=== PATIENT | male | born 1990 | race Caucasian/White ===

== ENCOUNTER 2021-08-15 21:20 | Emergency (ER) | payer MEDICAID ==
[~2021-08-15] VITALS: Ht 182.9 cm; Wt 90.9 kg
[2021-08-15] MEDS ORDERED: naloxone 2mg/2ml inj IV ONE (21:30)
[2021-08-15] MEDS ORDERED: normal saline 1000ML IV soln IVB ONE ×2 (21:35→23:40)
[2021-08-15 21:48] LABS: CLARITY,URINE CLEAR (Clear); GLUCOSE, URINE NEGATIVE (Neg); KETONES,URINE NEGATIVE (Neg); LEUKOCYTE ESTERASE ,URINE SMALL (Neg); NITRITES, URINE NEGATIVE (Neg); OCCULT BLOOD,URINE TRACE-INTACT (Neg); PH,URINE 5.5 (4.8-8.0); PROTEIN,URINE TRACE mg/dl (Neg); UROBILINOGEN,URINE 0.2 E.U/dL (0.2-1.0)
[2021-08-15 21:49] LABS: BASOPHILS % (AUTO) 0.3 % (0-1); EOSINOPHILS # (AUTO) 0.3 X10'3 (0-0.9); EOSINOPHILS % (AUTO) 2.2 % (0-6); HEMATOCRIT 46.1 % (42.0-52.0); HEMOGLOBIN 15.4 g/dl (14.0-17.9); MEAN CORPUSCULAR HEMOGLOBIN 31.8 PG (27.0-31.0); MEAN CORPUSCULAR HGB CONC 33.3 g/dL (33.0-36.5); MEAN CORPUSCULAR VOLUME 95.4 FL (78-98); MEAN PLATELET VOLUME 8.1 FL (7.4-10.4); MONOCYTES # (AUTO) 1.3 X10'3 (0-0.9); MONOCYTES % (AUTO) 10.7 % (2-12); NEUTROPHILS # (AUTO) 5.5 X10'3 (1.8-7.7); NEUTROPHILS % (AUTO) 45.8 % (42-75); PLATELET COUNT 256 X10'3 (140-440); RED BLOOD COUNT 4.83 X10'6 (4.70-6.10); RED CELL DISTRIBUTION WIDTH 13.8 % (11.5-14.5); WHITE BLOOD COUNT 12.1 X10'3 (4.5-11.0)
[2021-08-15] MEDS ORDERED: naloxone 0.4 mg/ml inj IV ONE (21:50)
[2021-08-15 21:53] LABS: COLOR,URINE STRAW (Yellow); UA COLLECTION TYPE FOLEY CATH
[2021-08-15 21:58] LABS: BACTERIA,URINE FEW /HPF (Neg); MUCUS STRANDS NONE SEEN /LPF (Neg); RBC,URINE 0-2 /HPF (0-2); SQUAMOUS EPITHELIAL CELL,UR NONE SEEN /LPF (FEW); URINE AMPHETAMINE SCREEN NEGATIVE (Neg); URINE BARBITUATE SCREEN NEGATIVE (Neg); URINE BENZODIAZEPINES SCREEN NEGATIVE (Neg); URINE CANNABINOID SCREEN NEGATIVE (Neg); URINE COCAINE SCREEN NEGATIVE (Neg); URINE METHADONE SCREEN NEGATIVE (Neg); URINE OPIATE SCREEN NEGATIVE (Neg); URINE PHENCYCLIDINE SCREEN NEGATIVE (Neg)
[2021-08-15 21:59] LABS: ALANINE AMINOTRANSFERASE 76 U/L (12-78); ALBUMIN 3.8 G/DL (3.4-5.0); ALBUMIN/GLOBULIN RATIO 1.5 (1.1-1.5); ALKALINE PHOSPHATASE 45 IU/L (46-116); ANION GAP 18 (8-16); ASPARTATE AMINO TRANSFERASE 29 U/L (10-37); BILIRUBIN,TOTAL 0.1 MG/DL (0.1-1.0); BLOOD UREA NITROGEN 9 MG/DL (7-18); BUN/CREATININE RATIO 12.3 (5.4-32.0); CHLORIDE 109 MMOL/L (99-107); CREATININE 0.73 MG/DL (0.60-1.10); GLUCOSE 116 MG/DL (70-104); POTASSIUM 3.1 MMOL/L (3.5-5.1); SODIUM 148 MMOL/L (135-145); TOTAL CARBON DIOXIDE 20.7 MMOL/L (24-32); TOTAL PROTEIN 6.3 G/DL (6.4-8.2); eGFR > 90 ML/MIN
[2021-08-15 22:00] LABS: ETHANOL 0.401 GM/DL (0.0-0.010)
[2021-08-15] MEDS ORDERED: potassium Cl 20 mEq SR tablet PO ONE (22:05)
--- NOTE | 2021-08-15 22:17 | NUR ---
Per patient boyfriend, patient had one bottle of sake, six shots, and two mixed drinks.
[2021-08-15] MEDS ORDERED: potassium Cl 10 mEq/100mL bag IV ONE (23:40)
[2021-08-16 00:11] LABS: MAGNESIUM 2.1 MG/DL (1.5-2.4)
--- NOTE | 2021-08-16 03:21 | NUR ---
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 Phone number [phone].
[2021-08-16 04:12] VITALS: BP 92/45
--- NOTE | 2021-08-16 04:47 | NUR ---
Patient awake and coherent. 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
[2021-08-16] MEDS ORDERED: CEPH250T PO (05:39)
== END 2021-08-16 05:39 | disposition home or self-care (01) ==
LOC: ER 21:20
DX: N39.0 Urinary tract infection, site not specified (principal); R11.10 Vomiting, unspecified; F10.10 Alcohol abuse, uncomplicated; Y90.8 Blood alcohol level of 240 mg/100 ml or more; Z79.2 Long term (current) use of antibiotics
CPT/HCPCS: 36415; 70450; 71045; 80053; 80305; 80320; 81001; 82948; 83735; 85025; 87088; 93005; 96361; 96374; 96376; 99285; J2310; J3480; J7030

== ENCOUNTER 2022-01-22 10:08 | Inpatient (IN) | payer MEDICAID ==
[~2022-01-22] VITALS: Ht 170.2 cm; Wt 72.7 kg
[2022-01-22] MEDS ORDERED: methylPREDNISolone sod succ 125mg/2ml vial IV ONE (11:10)
[2022-01-22] MEDS ORDERED: ampicillin/sulbac 3gm/NS 100ml 100 ML IV ONE (11:25)
[2022-01-22] MEDS ORDERED: normal saline 1000ml 1,000 ML IV ONE (11:30)
[2022-01-22] MEDS ORDERED: clindamycin 600mg/D5W 50ml 50 ML IV ONE (11:45)
[2022-01-22 11:58] LABS: BASOPHILS % (AUTO) 0.4 % (0-1); EOSINOPHILS # (AUTO) 0.2 X10'3 (0-0.9); EOSINOPHILS % (AUTO) 2.3 % (0-6); HEMATOCRIT 42.5 % (42.0-52.0); HEMOGLOBIN 14.4 g/dl (14.0-17.9); LYMPHOCYTES # (AUTO) 1.5 X10'3 (1.1-4.8); LYMPHOCYTES % (AUTO) 17.6 % (21-51); MEAN CORPUSCULAR HEMOGLOBIN 30.4 PG (27.0-31.0); MEAN CORPUSCULAR HGB CONC 33.9 g/dL (33.0-36.5); MEAN CORPUSCULAR VOLUME 89.6 FL (78-98); MEAN PLATELET VOLUME 7.6 FL (7.4-10.4); MONOCYTES % (AUTO) 11.1 % (2-12); NEUTROPHILS % (AUTO) 68.6 % (42-75); PLATELET COUNT 434 X10'3 (140-440); RED BLOOD COUNT 4.74 X10'6 (4.70-6.10); RED CELL DISTRIBUTION WIDTH 12.5 % (11.5-14.5); WHITE BLOOD COUNT 8.8 X10'3 (4.5-11.0)
[2022-01-22 12:15] LABS: ALANINE AMINOTRANSFERASE 14 U/L (12-78); ALBUMIN 3.2 G/DL (3.4-5.0); ALBUMIN/GLOBULIN RATIO 0.8 (1.1-1.5); ALKALINE PHOSPHATASE 47 IU/L (46-116); ANION GAP 8 (8-16); ASPARTATE AMINO TRANSFERASE 15 U/L (10-37); BILIRUBIN,TOTAL 0.2 MG/DL (0.1-1.0); BLOOD UREA NITROGEN 6 MG/DL (7-18); CALCIUM 8.9 MG/DL (8.5-10.1); CHLORIDE 104 MMOL/L (99-107); CREATININE 0.67 MG/DL (0.60-1.10); GLUCOSE 98 MG/DL (70-104); MAGNESIUM 1.9 MG/DL (1.5-2.4); POTASSIUM 3.7 MMOL/L (3.5-5.1); SODIUM 142 MMOL/L (135-145); TOTAL CARBON DIOXIDE 29.8 MMOL/L (24-32); TOTAL PROTEIN 7.4 G/DL (6.4-8.2); eGFR > 90 ML/MIN
[2022-01-22] MEDS ORDERED: LIDOcaine 1% 30ml preserv. free vial SQ STA (13:19)
[2022-01-22] MEDS ORDERED: ampicillin/sulbac 3gm/NS 100ml 100 ML IV SCH (14:00)
[2022-01-22] MEDS ORDERED: piperacillin/tazo 3.375gm/50ml 50 ML IV ONE (14:35)
[2022-01-22] MEDS ORDERED: ketorolac trometh. 30mg/ml inj. IV ONE (14:40)
[2022-01-22] MEDS: normal saline 1000ml 1,000 ML IV SCH (18:14)
[2022-01-22] MEDS ORDERED: clindamycin 300mg/D5W 50mL 50 ML IV ONE (18:22)
[2022-01-22] MEDS ORDERED: clindamycin phosphate inj 300 MG in normal saline 50ml IV soln 48 ML IV ONE (18:30)
[2022-01-22] MEDS ORDERED: clindamycin phosphate inj 300 MG in normal saline 50ml IV soln 48 ML IV SCH (19:00)
[2022-01-22] MEDS ORDERED: clindamycin 600mg/D5W 50ml 50 ML IV SCH (20:00)
[2022-01-22] MEDS: piperacillin/tazo 3.375gm/50ml 50 ML IV SCH (20:59)
[2022-01-23] MEDS: normal saline 1000ml 1,000 ML IV SCH ×3 (04:49→19:30)
[2022-01-23] MEDS: piperacillin/tazo 3.375gm/50ml 50 ML IV SCH ×2 (04:50→12:24)
--- NOTE | 2022-01-23 06:25 | NUR ---
Patient observed sleeping with property assessment monitor in place, no signs of distress noted. Will continue to monitor.
[2022-01-23] MEDS ORDERED: potassium CL 20mEq in D5-1/2NS 1,000 ML IV SCH (08:20)
[2022-01-23] MEDS ORDERED: LIDOcaine 1% w/EPI 1:200,000 injection 10mL vial IJ STA (10:59)
--- NOTE | 2022-01-23 12:00 | NUR ---
Patient resting on stretcher, no signs of distress noted, will continue to monitor.
[2022-01-23] MEDS ORDERED: ketorolac trometh. 30mg/ml inj. IV ONE (15:35)
--- NOTE | 2022-01-23 15:35 | NUR ---
Discussed patient pain level with Satnam BUTLER, who gave verbal order for toradol 30 mg IV once now.
--- NOTE | 2022-01-23 15:43 | NUR ---
Report given to HANS Serna on Ortho unit
[2022-01-23] MEDS ORDERED: ACET-76 PO (15:52)
[2022-01-23] MEDS ORDERED: IBUP-1986 PO (15:52)
[2022-01-23] MEDS ORDERED: CLIN300C56 PO (15:52)
--- NOTE | 2022-01-23 15:57 | NUR ---
Upon receiving report for this pt at 15:20, discovered there wasn't any admit orders. ED RN advised she would clarify/determine admitting provider. Patient arrived to floor at 15:57 without clarification of admitting MD. Charge nurse spoke with nursing operations supervisor who advised which hospitalist would be admitting pt. Per nursing supe, hospitalist requested ED RADIOCOMMUNICATIONS TECHNICIAN put in admit orders. Admitting MD still not indicated system. Pt placed in room on ortho floor.
[2022-01-23 16:20] VITALS: BP 135/80
[2022-01-23] MEDS ORDERED: magnesium Cl slow-release 64mg tablet PO PRN ×2 (17:20)
[2022-01-23] MEDS ORDERED: HYDROcodone/acetaminophen 5mg/325mg tablet PO PRN (17:20)
[2022-01-23] MEDS ORDERED: morphine 2 MG/ML inj. syringe IV PRN (17:20)
[2022-01-23] MEDS ORDERED: potassium CL 10mEq/100ml bag 100 ML IV PRN (17:20)
[2022-01-23] MEDS ORDERED: ondansetron/PF 4mg/2ml inj IV PRN (17:20)
[2022-01-23] MEDS ORDERED: magnesium 4gm in 100ml NS 100 ML IV PRN (17:20)
[2022-01-23] MEDS ORDERED: acetaminophen 325mg tablet PO PRN (17:20)
[2022-01-23] MEDS ORDERED: magnesium 2GM in 50ml NS 50 ML IV PRN (17:20)
[2022-01-23] MEDS ORDERED: POTASSIUM BICARB 20meq eff tab 20 MEQ TABLET.EFF PO PRN ×2 (17:20)
--- NOTE | 2022-01-23 17:31 | NUR ---
PAGER ID: [phone] MESSAGE: Dr. Doherty, Mr. Hazel in [id number] has an order for KCL 20 mEq D5w 1/2 NS at 50 mLs/hr and NS at 100 mLs/hr. Can you confirm which one you would like running or both? Thank you [phone]
--- NOTE | 2022-01-23 18:23 | NUR ---
Problems reprioritized. Patient report given, questions answered & plan of care reviewed with Tracie.
[2022-01-23] MEDS: K and/or MAG REPLACEMENT MC SCH (19:30)
[2022-01-23] MEDS: piperacillin/tazo 4.5gm/100ml 100 ML IV SCH (19:30)
[2022-01-23] MEDS: docusate sod 100mg capsule PO SCH (19:31)
[2022-01-23] MEDS: vancomycin/NS 1 GM ADD-VANTAGE 250 ML IV SCH (19:38)
--- NOTE | 2022-01-23 19:43 | NUR ---
MD Doherty called and stated to DC 20k in D5W with 1/2NS and changed NS fluids orders to 50ml/hr. Order changes made at this time. Primary care nurse notified of MD change in orders.
[2022-01-23 22:00] VITALS: BP 107/64
[2022-01-24] MEDS: piperacillin/tazo 4.5gm/100ml 100 ML IV SCH ×3 (03:52→20:20)
[2022-01-24] MEDS: vancomycin/NS 1 GM ADD-VANTAGE 250 ML IV SCH ×3 (03:53→20:20)
[2022-01-24 06:00] VITALS: BP 119/73
[2022-01-24 06:23] LABS: BASOPHILS # (AUTO) 0.1 X10'3 (0-0.2); BASOPHILS % (AUTO) 0.8 % (0-1); EOSINOPHILS # (AUTO) 0.2 X10'3 (0-0.9); EOSINOPHILS % (AUTO) 2.2 % (0-6); HEMATOCRIT 40.6 % (42.0-52.0); HEMOGLOBIN 13.6 g/dl (14.0-17.9); LYMPHOCYTES # (AUTO) 3.1 X10'3 (1.1-4.8); LYMPHOCYTES % (AUTO) 40.9 % (21-51); MEAN CORPUSCULAR HGB CONC 33.4 g/dL (33.0-36.5); MONOCYTES # (AUTO) 0.6 X10'3 (0-0.9); MONOCYTES % (AUTO) 8.2 % (2-12); NEUTROPHILS # (AUTO) 3.6 X10'3 (1.8-7.7); NEUTROPHILS % (AUTO) 47.9 % (42-75); PLATELET COUNT 478 X10'3 (140-440); RED BLOOD COUNT 4.52 X10'6 (4.70-6.10); RED CELL DISTRIBUTION WIDTH 12.7 % (11.5-14.5); WHITE BLOOD COUNT 7.6 X10'3 (4.5-11.0)
[2022-01-24 06:54] LABS: ALBUMIN 2.6 G/DL (3.4-5.0); ANION GAP 11 (8-16); BLOOD UREA NITROGEN 7 MG/DL (7-18); BUN/CREATININE RATIO 10.8 (5.4-32.0); CALCIUM 8.5 MG/DL (8.5-10.1); CHLORIDE 107 MMOL/L (99-107); CREATININE 0.65 MG/DL (0.60-1.10); GLUCOSE 79 MG/DL (70-104); MAGNESIUM 2.2 MG/DL (1.5-2.4); POTASSIUM 3.8 MMOL/L (3.5-5.1); SODIUM 144 MMOL/L (135-145); eGFR > 90 ML/MIN
[2022-01-24] MEDS: docusate sod 100mg capsule PO SCH ×2 (08:00→20:00)
[2022-01-24] MEDS: K and/or MAG REPLACEMENT MC SCH ×2 (08:00→20:00)
[2022-01-24 10:00] VITALS: BP 117/79
[2022-01-24] MEDS: normal saline 1000ml 1,000 ML IV SCH (10:56)
[2022-01-24 18:25] VITALS: BP 116/76
[2022-01-24] MEDS ORDERED: VANCOMYCIN LEVEL IV ONE (19:30)
[2022-01-24 22:15] VITALS: BP 106/69
[2022-01-25] MEDS: vancomycin/NS 1 GM ADD-VANTAGE 250 ML IV SCH (04:42)
[2022-01-25] MEDS: normal saline 1000ml 1,000 ML IV SCH (04:42)
[2022-01-25] MEDS: piperacillin/tazo 4.5gm/100ml 100 ML IV SCH ×3 (04:42→19:02)
[2022-01-25 05:59] LABS: BASOPHILS # (AUTO) 0.1 X10'3 (0-0.2); BASOPHILS % (AUTO) 0.8 % (0-1); EOSINOPHILS # (AUTO) 0.3 X10'3 (0-0.9); EOSINOPHILS % (AUTO) 3.9 % (0-6); HEMATOCRIT 43.5 % (42.0-52.0); HEMOGLOBIN 14.8 g/dl (14.0-17.9); LYMPHOCYTES # (AUTO) 2.7 X10'3 (1.1-4.8); LYMPHOCYTES % (AUTO) 31.3 % (21-51); MEAN CORPUSCULAR HEMOGLOBIN 30.3 PG (27.0-31.0); MEAN PLATELET VOLUME 7.5 FL (7.4-10.4); MONOCYTES # (AUTO) 0.8 X10'3 (0-0.9); MONOCYTES % (AUTO) 9.6 % (2-12); NEUTROPHILS # (AUTO) 4.6 X10'3 (1.8-7.7); NEUTROPHILS % (AUTO) 54.4 % (42-75); PLATELET COUNT 506 X10'3 (140-440); RED BLOOD COUNT 4.88 X10'6 (4.70-6.10); RED CELL DISTRIBUTION WIDTH 12.7 % (11.5-14.5); WHITE BLOOD COUNT 8.5 X10'3 (4.5-11.0)
[2022-01-25 06:00] VITALS: BP 106/64
[2022-01-25 06:05] LABS: ALBUMIN 2.7 G/DL (3.4-5.0); ANION GAP 6 (8-16); BLOOD UREA NITROGEN 6 MG/DL (7-18); BUN/CREATININE RATIO 7.9 (5.4-32.0); CALCIUM 8.9 MG/DL (8.5-10.1); CHLORIDE 106 MMOL/L (99-107); CREATININE 0.76 MG/DL (0.60-1.10); GLUCOSE 89 MG/DL (70-104); POTASSIUM 3.7 MMOL/L (3.5-5.1); SODIUM 141 MMOL/L (135-145); TOTAL CARBON DIOXIDE 28.8 MMOL/L (24-32); eGFR > 90 ML/MIN
[2022-01-25] MEDS: K and/or MAG REPLACEMENT MC SCH ×2 (08:00→19:01)
[2022-01-25] MEDS: docusate sod 100mg capsule PO SCH ×2 (08:00→19:02)
[2022-01-25 10:00] VITALS: BP 102/71
[2022-01-25] MEDS ORDERED: VANCOmycin 1250MG/NS 250ml Bag 250 ML IV SCH (12:00)
[2022-01-25 18:10] VITALS: BP 109/73
--- NOTE | 2022-01-25 18:37 | NUR ---
Report to Tracie MAXWELL, waiting for results of CT.
[2022-01-25 22:00] VITALS: BP 116/69
[2022-01-25] MEDS: VANCOmycin 1250MG/NS 250ml Bag 250 ML IV SCH (23:31)
[2022-01-26] MEDS: piperacillin/tazo 4.5gm/100ml 100 ML IV SCH (04:16)
[2022-01-26] MEDS: normal saline 1000ml 1,000 ML IV SCH (04:17)
[2022-01-26 06:00] VITALS: BP 103/68
[2022-01-26 06:25] LABS: BASOPHILS # (AUTO) 0.1 X10'3 (0-0.2); BASOPHILS % (AUTO) 0.9 % (0-1); EOSINOPHILS # (AUTO) 0.3 X10'3 (0-0.9); EOSINOPHILS % (AUTO) 3.8 % (0-6); HEMATOCRIT 43.3 % (42.0-52.0); HEMOGLOBIN 14.9 g/dl (14.0-17.9); LYMPHOCYTES # (AUTO) 2.3 X10'3 (1.1-4.8); LYMPHOCYTES % (AUTO) 25.6 % (21-51); MEAN CORPUSCULAR HEMOGLOBIN 30.5 PG (27.0-31.0); MEAN CORPUSCULAR HGB CONC 34.3 g/dL (33.0-36.5); MEAN CORPUSCULAR VOLUME 88.9 FL (78-98); MEAN PLATELET VOLUME 7.6 FL (7.4-10.4); MONOCYTES # (AUTO) 0.8 X10'3 (0-0.9); MONOCYTES % (AUTO) 8.9 % (2-12); NEUTROPHILS # (AUTO) 5.4 X10'3 (1.8-7.7); NEUTROPHILS % (AUTO) 60.8 % (42-75); PLATELET COUNT 517 X10'3 (140-440); RED BLOOD COUNT 4.88 X10'6 (4.70-6.10); RED CELL DISTRIBUTION WIDTH 12.4 % (11.5-14.5); WHITE BLOOD COUNT 8.9 X10'3 (4.5-11.0)
[2022-01-26 06:31] LABS: ALBUMIN 2.9 G/DL (3.4-5.0); ANION GAP 7 (8-16); BLOOD UREA NITROGEN 5 MG/DL (7-18); BUN/CREATININE RATIO 6.7 (5.4-32.0); CALCIUM 8.8 MG/DL (8.5-10.1); CHLORIDE 104 MMOL/L (99-107); CREATININE 0.75 MG/DL (0.60-1.10); GLUCOSE 89 MG/DL (70-104); MAGNESIUM 2.1 MG/DL (1.5-2.4); POTASSIUM 3.8 MMOL/L (3.5-5.1); SODIUM 138 MMOL/L (135-145); TOTAL CARBON DIOXIDE 27.2 MMOL/L (24-32); eGFR > 90 ML/MIN
[2022-01-26] MEDS: VANCOmycin 1250MG/NS 250ml Bag 250 ML IV SCH (07:16)
[2022-01-26] MEDS: docusate sod 100mg capsule PO SCH (07:23)
[2022-01-26] MEDS: K and/or MAG REPLACEMENT MC SCH (08:00)
[2022-01-26] MEDS ORDERED: AMOX-115 PO (13:11)
[2022-01-26] MEDS ORDERED: VANCOMYCIN LEVEL IV ONE (23:30)
== END 2022-01-26 13:53 | disposition home or self-care (01) | DRG 115 ==
LOC: ER 10:09 → UNDOADMIN 01-23 13:50 → ED HOLD 01-23 13:50 → ORTHO 4S 01-23 15:52 → ED HOLD 01-23 17:20
PROVIDERS: ADMIT Internal Medicine; ATTEND Internal Medicine
PROC: BW291ZZ Computerized Tomography (CT Scan) of Head and Neck using Low Osmolar Contrast (ICD-10-PCS; principal; 2022-01-23)
PROC: BW291ZZ Computerized Tomography (CT Scan) of Head and Neck using Low Osmolar Contrast (ICD-10-PCS; 2022-01-25)
DX: K12.2 Cellulitis and abscess of mouth (principal); F17.210 Nicotine dependence, cigarettes, uncomplicated; L03.211 Cellulitis of face; M27.2 Inflammatory conditions of jaws; K02.9 Dental caries, unspecified; Z79.899 Other long term (current) drug therapy; Z20.822 Contact with and (suspected) exposure to COVID-19
CPT/HCPCS: 36415; 70491; 80048; 80053; 80202; 83735; 84145; 85025; 87081; 87811; 96361; 96365; 96366; 96367; 96368; 96375; 99285; A6449; G0378; J1885; J2543; J2930; J3370; J3480; J3490; J7030

== ENCOUNTER 2024-08-15 08:53 | Inpatient (IN) | payer MEDICAID ==
[~2024-08-15] VITALS: Ht 172.7 cm; Wt 66.7 kg
[~2024-08-15 08:53] MED LIST: ACET-76 PO; CLIN300C56 PO; IBUP-1986 PO
[2024-08-15 09:24] LABS: BASOPHILS % (AUTO) 0.2 % (0-1); EOSINOPHILS % (AUTO) 0.1 % (0-6); LYMPHOCYTES # (AUTO) 0.8 X10'3 (1.1-4.8); LYMPHOCYTES % (AUTO) 5.8 % (21-51); MEAN CORPUSCULAR HEMOGLOBIN 32.6 PG (27.0-31.0); MEAN CORPUSCULAR VOLUME 95.8 FL (78-98); MEAN PLATELET VOLUME 8.6 FL (7.4-10.4); MONOCYTES # (AUTO) 0.7 X10'3 (0-0.9); MONOCYTES % (AUTO) 4.8 % (2-12); NEUTROPHILS # (AUTO) 12.4 X10'3 (1.8-7.7); NEUTROPHILS % (AUTO) 89.1 % (42-75); PLATELET COUNT 217 X10'3 (140-440); RED BLOOD COUNT 6.27 X10'6 (4.70-6.10); RED CELL DISTRIBUTION WIDTH 13.9 % (11.5-14.5); WHITE BLOOD COUNT 13.9 X10'3 (4.5-11.0)
[2024-08-15 09:36] LABS: HEMOGLOBIN 20.5 g/dl (14.0-17.9)
[2024-08-15 09:37] LABS: HEMATOCRIT 60.1 % (42.0-52.0)
[2024-08-15] MEDS: ondansetron/PF 4mg/2ml inj IV ONE (09:41)
[2024-08-15] MEDS: normal saline 1000ml 1,000 ML IV ONE ×4 (09:42→18:07)
[2024-08-15] MEDS: morphine 4 MG/ML inj SYRINge IV ONE (09:43)
[2024-08-15 09:48] LABS: ALANINE AMINOTRANSFERASE 111 U/L (12-78); ALBUMIN 3.9 G/DL (3.4-5.0); ALBUMIN/GLOBULIN RATIO 0.8 (1.1-1.5); ALKALINE PHOSPHATASE 66 IU/L (46-116); ANION GAP 22 (8-16); ASPARTATE AMINO TRANSFERASE 112 U/L (10-37); BILIRUBIN,TOTAL 1.6 MG/DL (0.1-1.0); BLOOD UREA NITROGEN 18 MG/DL (7-18); BUN/CREATININE RATIO 6.5 (10.0-20.0); CALCIUM 9.2 MG/DL (8.5-10.1); CHLORIDE 95 MMOL/L (99-107); CREATININE 2.78 MG/DL (0.60-1.10); GLUCOSE 209 MG/DL (70-104); SODIUM 134 MMOL/L (135-145); TOTAL CARBON DIOXIDE 17.4 MMOL/L (24-32); TOTAL PROTEIN 8.8 G/DL (6.4-8.2); eCRCL 37 ML/MIN; eGFR 27 ML/MIN
[2024-08-15 09:51] LABS: PRO BRAIN NATRIURETIC PEPTIDE 373 PG/ML (0-125)
[2024-08-15 09:58] LABS: POTASSIUM 3.7 MMOL/L (3.5-5.1)
[2024-08-15 10:34] LABS: LIPASE > 375 U/L (16-77)
[2024-08-15] MEDS: CefTRIAXone/D5W-Rocephin 1gm 50 ML IV ONE (10:42)
[2024-08-15] MEDS ORDERED: haloperidol lactate 5mg/ml inj IM PRN (12:55)
[2024-08-15] MEDS ORDERED: potassium Cl 40MEQ/1/2NS 520ml 520 ML IV PRN (12:55)
[2024-08-15] MEDS ORDERED: magnesium Cl slow-release 64mg tablet PO PRN (12:55)
[2024-08-15] MEDS ORDERED: mag hydrox/Alum hydrox/simeth 30ml oral suspension PO PRN (12:55)
[2024-08-15] MEDS ORDERED: magnesium hydroxide 30ml (MOM) UD suspension PO PRN (12:55)
[2024-08-15] MEDS ORDERED: potassium Cl 20 mEq SR tablet PO PRN ×2 (12:55)
[2024-08-15] MEDS ORDERED: magnesium sulf-water 4G/100mL 100 ML IV PRN (12:55)
[2024-08-15] MEDS ORDERED: dextrose 50%-water 50ml dispensing syringe IV PRN (12:55)
[2024-08-15] MEDS: thiamine 100mg/ml 2ml inj. IV SCH (13:37)
[2024-08-15] MEDS: normal saline 1000ml 1,000 ML IV SCH (13:42)
[2024-08-15 13:49] LABS: POTASSIUM 3.7 MMOL/L (3.5-5.1)
[2024-08-15 13:52] LABS: BASOPHILS % (AUTO) 0.1 % (0-1); EOSINOPHILS % (AUTO) 0.1 % (0-6); HEMATOCRIT 54.4 % (42.0-52.0); LYMPHOCYTES # (AUTO) 0.8 X10'3 (1.1-4.8); LYMPHOCYTES % (AUTO) 6.6 % (21-51); MEAN CORPUSCULAR HEMOGLOBIN 32.7 PG (27.0-31.0); MEAN CORPUSCULAR HGB CONC 33.6 g/dL (33.0-36.5); MEAN CORPUSCULAR VOLUME 97.5 FL (78-98); MEAN PLATELET VOLUME 8.5 FL (7.4-10.4); MONOCYTES # (AUTO) 1.1 X10'3 (0-0.9); MONOCYTES % (AUTO) 9.6 % (2-12); NEUTROPHILS # (AUTO) 9.6 X10'3 (1.8-7.7); NEUTROPHILS % (AUTO) 83.6 % (42-75); PLATELET COUNT 180 X10'3 (140-440); RED BLOOD COUNT 5.58 X10'6 (4.70-6.10); RED CELL DISTRIBUTION WIDTH 13.9 % (11.5-14.5); WHITE BLOOD COUNT 11.5 X10'3 (4.5-11.0)
[2024-08-15 13:54] LABS: HEMOGLOBIN 18.3 g/dl (14.0-17.9)
[2024-08-15 14:05] LABS: ETHANOL < 10 MG/DL (<10)
[2024-08-15] MEDS: folic acid 1mg/0.2ml inj IV SCH (14:07)
[2024-08-15 14:08] LABS: APTT 23 SECONDS (22-32); INR 1.1 INR; PROTHROMBIN TIME 11.1 SECONDS (9.0-12.0)
[2024-08-15 14:19] LABS: HEMOGLOBIN A1C 5.3 % (4.5-6.2)
[2024-08-15] MEDS: LORazepam 2 mg/ml vial IV PRN (15:22)
[2024-08-15] MEDS: morphine 2 MG/ML inj. syringe IV PRN (17:13)
[2024-08-15] MEDS ORDERED: NO HOME MEDS (17:15)
[2024-08-15 18:18] LABS: BILIRUBIN,URINE SMALL (Neg); CLARITY,URINE TURBID (Clear); COLOR,URINE ORANGE (Yellow); GLUCOSE, URINE NEGATIVE (Neg); KETONES,URINE TRACE mg/dl (Neg); LEUKOCYTE ESTERASE ,URINE NEGATIVE (Neg); OCCULT BLOOD,URINE SMALL (Neg); PH,URINE 5.5 (4.8-8.0); PROTEIN,URINE 100 mg/dl (Neg); UROBILINOGEN,URINE 0.2 E.U/dL (0.2-1.0)
[2024-08-15 18:33] LABS: NITRITES, URINE NEGATIVE (Neg); UA COLLECTION TYPE VOIDED
[2024-08-15 18:38] LABS: BACTERIA,URINE 3+ /HPF (Neg); FINE GRANULAR CAST 0-3 /LPF (NEGATIVE); HYALINE CASTS >30 /LPF (NEGATIVE); MUCUS STRANDS FEW /LPF (Neg); SQUAMOUS EPITHELIAL CELL,UR FEW /LPF (FEW); TRANSITIONAL EPI CELLS,URINE FEW /HPF
[2024-08-15 18:39] LABS: URINE AMPHETAMINE SCREEN NEGATIVE (Neg); URINE BARBITUATE SCREEN NEGATIVE (Neg); URINE BENZODIAZEPINES SCREEN NEGATIVE (Neg); URINE CANNABINOID SCREEN POSITIVE (Neg); URINE COCAINE SCREEN NEGATIVE (Neg); URINE METHADONE SCREEN NEGATIVE (Neg); URINE OPIATE SCREEN POSITIVE (Neg); URINE PHENCYCLIDINE SCREEN NEGATIVE (Neg)
[2024-08-15] MEDS: atenolol 50mg tablet PO SCH (19:05)
[2024-08-15 19:08] LABS: ALANINE AMINOTRANSFERASE 61 U/L (12-78); ALBUMIN 2.2 G/DL (3.4-5.0); ALBUMIN/GLOBULIN RATIO 0.6 (1.1-1.5); ALKALINE PHOSPHATASE 37 IU/L (46-116); ANION GAP 13 (8-16); ASPARTATE AMINO TRANSFERASE 79 U/L (10-37); BILIRUBIN,TOTAL 0.8 MG/DL (0.1-1.0); BLOOD UREA NITROGEN 23 MG/DL (7-18); BUN/CREATININE RATIO 13.2 (10.0-20.0); CHLORIDE 108 MMOL/L (99-107); CREATININE 1.74 MG/DL (0.60-1.10); GLUCOSE 131 MG/DL (70-104); POTASSIUM 4.1 MMOL/L (3.5-5.1); SALICYLATE 0.8 MG/DL (4.0-20.0); SODIUM 138 MMOL/L (135-145); TOTAL PROTEIN 5.6 G/DL (6.4-8.2); eCRCL 60 ML/MIN; eGFR 46 ML/MIN
[2024-08-15] MEDS: haloperidol 5mg tablet PO PRN (19:09)
[2024-08-15] MEDS: K and/or MAG REPLACEMENT MC SCH (20:00)
[2024-08-15] MEDS: normal saline 1000ml 1,000 ML IV STA (20:12)
[2024-08-15 21:00] LABS: ABG BASE EXCESS -10.2 mmol/L (-2.0-3.0); ABG HCO3 13.5 mmol/L (21.0-28.0); ABG OXYGEN SATURATION 94.9 % (94.0-98.0); ABG PCO2 (T) 26.1 mmHg (35.0-48.0); ABG PO2 (T) 77.6 mmHg (83.0-108.0); ALLEN'S TEST POSITIVE; FCOHb 0.3 % (0.5-1.5); FHHb 5.1 % (0.0-5.0); FLOW 4 L/min; FMetHb 0.2 % (0.0-1.5); FO2Hb 94.4 % (94.0-98.0); MODE NASAL CANNULA; PATIENT TEMPERATURE 36.7; TOTAL HEMOGLOBIN 19.2 G/dl (13.5-17.5)
[2024-08-15] MEDS: docusate sod 100mg capsule PO SCH (21:28)
[2024-08-15 22:59] LABS: ALANINE AMINOTRANSFERASE 63 U/L (12-78); ALBUMIN 2.3 G/DL (3.4-5.0); ALBUMIN/GLOBULIN RATIO 0.6 (1.1-1.5); ALKALINE PHOSPHATASE 39 IU/L (46-116); ANION GAP 15 (8-16); ASPARTATE AMINO TRANSFERASE 92 U/L (10-37); BILIRUBIN,TOTAL 0.9 MG/DL (0.1-1.0); BLOOD UREA NITROGEN 27 MG/DL (7-18); BUN/CREATININE RATIO 8.8 (10.0-20.0); CALCIUM 6.3 MG/DL (8.5-10.1); CHLORIDE 105 MMOL/L (99-107); CREATININE 3.08 MG/DL (0.60-1.10); GLUCOSE 133 MG/DL (70-104); SODIUM 136 MMOL/L (135-145); TOTAL CARBON DIOXIDE 16.5 MMOL/L (24-32); TOTAL PROTEIN 6.2 G/DL (6.4-8.2); eCRCL 34 ML/MIN; eGFR 24 ML/MIN
[2024-08-15 23:00] LABS: POTASSIUM 4.9 MMOL/L (3.5-5.1)
[2024-08-16] VITALS (17 sets, daily range): BP systolic 118–150; BP diastolic 78–102; PULSE 91–123; RESP 21–52; TEMP 100.4–101; O2SAT 90–95
[2024-08-16 07:11] LABS: BASOPHILS % (AUTO) 0.2 % (0-1); EOSINOPHILS % (AUTO) 0 % (0-6); HEMATOCRIT 46.6 % (42.0-52.0); HEMOGLOBIN 15.9 g/dl (14.0-17.9); LYMPHOCYTES # (AUTO) 1.3 X10'3 (1.1-4.8); LYMPHOCYTES % (AUTO) 12.1 % (21-51); MEAN CORPUSCULAR HEMOGLOBIN 33.4 PG (27.0-31.0); MEAN CORPUSCULAR HGB CONC 34.1 g/dL (33.0-36.5); MEAN CORPUSCULAR VOLUME 97.7 FL (78-98); MEAN PLATELET VOLUME 9.5 FL (7.4-10.4); MONOCYTES # (AUTO) 1.2 X10'3 (0-0.9); MONOCYTES % (AUTO) 11.4 % (2-12); NEUTROPHILS # (AUTO) 8.3 X10'3 (1.8-7.7); NEUTROPHILS % (AUTO) 76.3 % (42-75); PLATELET COUNT 135 X10'3 (140-440); RED BLOOD COUNT 4.76 X10'6 (4.70-6.10); RED CELL DISTRIBUTION WIDTH 14.1 % (11.5-14.5); WHITE BLOOD COUNT 10.9 X10'3 (4.5-11.0)
[2024-08-16 07:21] LABS: ABG BASE EXCESS -11.2 mmol/L (-2.0-3.0); ABG HCO3 13.2 mmol/L (21.0-28.0); ABG OXYGEN SATURATION 92.7 % (94.0-98.0); ABG PCO2 (T) 28.4 mmHg (35.0-48.0); ABG PH (T) 7.291 (7.350-7.450); ABG PO2 (T) 72.5 mmHg (83.0-108.0); ALLEN'S TEST POSITIVE; FCOHb 0.6 % (0.5-1.5); FHHb 7.2 % (0.0-5.0); FLOW 6 L/min; FMetHb 0.2 % (0.0-1.5); MODE NASAL CANNULA; PATIENT TEMPERATURE 38.1; TOTAL HEMOGLOBIN 16.6 G/dl (13.5-17.5)
[2024-08-16] MEDS: ringers solution, lacted 1,000 ML IV SCH ×2 (07:25→15:18)
[2024-08-16] MEDS: acetaminophen 1,000mg/100ml IV 100 ML IV SCH (07:48)
[2024-08-16] MEDS: ringers solution, lactated 1000ml IV soln IV ONE (07:49)
[2024-08-16] MEDS: CALCIUM GLUC 1gm/50ml NACL,iso 50 ML IV SCH (07:50)
[2024-08-16 08:13] LABS: ALANINE AMINOTRANSFERASE 60 U/L (12-78); ALBUMIN 2.1 G/DL (3.4-5.0); ALBUMIN/GLOBULIN RATIO 0.6 (1.1-1.5); ALKALINE PHOSPHATASE 32 IU/L (46-116); ANION GAP 18 (8-16); ASPARTATE AMINO TRANSFERASE 112 U/L (10-37); BILIRUBIN,TOTAL 0.7 MG/DL (0.1-1.0); BLOOD UREA NITROGEN 36 MG/DL (7-18); BUN/CREATININE RATIO 10.7 (10.0-20.0); CHLORIDE 107 MMOL/L (99-107); CHOL/HDL RATIO 6.9 (0.00-4.99); CHOLESTEROL 132 MG/DL (0-200); CREATININE 3.35 MG/DL (0.60-1.10); GLUCOSE 106 MG/DL (70-104); HDL CHOLESTEROL 19 MG/DL (35-60); LDL CHOLESTEROL 44 MG/DL (50-100); MAGNESIUM 1.2 MG/DL (1.5-2.4); PHOSPHORUS 3.2 MG/DL (2.3-4.5); POTASSIUM 5.1 MMOL/L (3.5-5.1); SODIUM 138 MMOL/L (135-145); TOTAL PROTEIN 5.9 G/DL (6.4-8.2); TRIGLYCERIDES 490 MG/DL (20-135); eCRCL 31 ML/MIN; eGFR 22 ML/MIN
[2024-08-16 08:17] LABS: CALCIUM 5.8 MG/DL (8.5-10.1); TOTAL CARBON DIOXIDE 13.5 MMOL/L (24-32)
[2024-08-16] MEDS ORDERED: sodium bicarbonate 1meq/ml inj 150 ML in sodium chloride 0.45% 1,000 ML IV SCH ×2 (08:40→11:05)
[2024-08-16] MEDS ORDERED: sodium bicarbonate (8.4%) inj. 50 MEQ in sodium chloride 0.45% 1,000 ML IV SCH (09:30)
[2024-08-16 09:31] LABS: C-REACTIVE PROTEIN 33.92 MG/DL (0.0-0.5); LIPASE > 375 U/L (16-77)
[2024-08-16] MEDS: HYDROmorphone 1 mg/ml syringe IV ONE (09:40)
[2024-08-16] MEDS: enoxaparin 40mg/0.4ml syringe SUBCUT SCH (09:42)
[2024-08-16] MEDS: piperacillin/tazo 3.375gm/50ml 50 ML IV SCH (09:44)
[2024-08-16] MEDS: sodium bicarbonate (8.4%) 1 mEq/ml syringe IV ONE (09:44)
[2024-08-16] MEDS: SODIUM BICARBONATE 150MEQ IN D5W 1,000 ML IV SCH (10:42)
[2024-08-16 10:59] LABS: CREATININE,URINE RANDOM 325.4 MG/DL; TOTAL PROTEIN,URINE RANDOM 235.1 MG/DL
[2024-08-16 11:54] LABS: ALANINE AMINOTRANSFERASE 58 U/L (12-78); ALBUMIN/GLOBULIN RATIO 0.6 (1.1-1.5); ALKALINE PHOSPHATASE 31 IU/L (46-116); ANION GAP 12 (8-16); ASPARTATE AMINO TRANSFERASE 111 U/L (10-37); BILIRUBIN,TOTAL 0.7 MG/DL (0.1-1.0); BLOOD UREA NITROGEN 33 MG/DL (7-18); BUN/CREATININE RATIO 12.5 (10.0-20.0); CHLORIDE 110 MMOL/L (99-107); CREATININE 2.63 MG/DL (0.60-1.10); GLUCOSE 108 MG/DL (70-104); POTASSIUM 4.7 MMOL/L (3.5-5.1); SODIUM 142 MMOL/L (135-145); TOTAL CARBON DIOXIDE 20.2 MMOL/L (24-32); TOTAL PROTEIN 5.4 G/DL (6.4-8.2); eCRCL 39 ML/MIN; eGFR 29 ML/MIN
[2024-08-16] MEDS: calcium chloride inj. 1,000 MG in normal saline 100ml IV soln 100 ML IV ONE (11:59)
[2024-08-16 12:05] LABS: CALCIUM 5.7 MG/DL (8.5-10.1)
[2024-08-16] MEDS: LidoCAINE 2% Topical Jelly 11mL syringe (UROJET) TOP ONE (13:20)
[2024-08-16] MEDS ORDERED: VANCOMYCIN 1.75GM/WATER FOR INJ (PEG) 350 ML IVPB IV ONE (14:35)
[2024-08-16] MEDS: ringers solution, lacted 1,000 ML IV ONE (15:17)
[2024-08-16 18:13] LABS: ALANINE AMINOTRANSFERASE 53 U/L (12-78); ALBUMIN 1.8 G/DL (3.4-5.0); ALBUMIN/GLOBULIN RATIO 0.5 (1.1-1.5); ALKALINE PHOSPHATASE 30 IU/L (46-116); ANION GAP 10 (8-16); ASPARTATE AMINO TRANSFERASE 111 U/L (10-37); BILIRUBIN,TOTAL 0.7 MG/DL (0.1-1.0); BLOOD UREA NITROGEN 29 MG/DL (7-18); BUN/CREATININE RATIO 15.3 (10.0-20.0); CALCIUM 6.3 MG/DL (8.5-10.1); CHLORIDE 108 MMOL/L (99-107); CREATININE 1.89 MG/DL (0.60-1.10); GLUCOSE 99 MG/DL (70-104); POTASSIUM 3.9 MMOL/L (3.5-5.1); SODIUM 139 MMOL/L (135-145); TOTAL CARBON DIOXIDE 21.4 MMOL/L (24-32); TOTAL PROTEIN 5.3 G/DL (6.4-8.2); eCRCL 55 ML/MIN; eGFR 42 ML/MIN
[2024-08-16] MEDS: dexmedetomidin/NS 400mcg/100ml 100 ML IV SCH (18:28)
[2024-08-16 21:05] LABS: ALANINE AMINOTRANSFERASE 57 U/L (12-78); ALBUMIN 1.8 G/DL (3.4-5.0); ALBUMIN/GLOBULIN RATIO 0.5 (1.1-1.5); ALKALINE PHOSPHATASE 33 IU/L (46-116); ANION GAP 10 (8-16); ASPARTATE AMINO TRANSFERASE 114 U/L (10-37); BILIRUBIN,TOTAL 0.7 MG/DL (0.1-1.0); BLOOD UREA NITROGEN 25 MG/DL (7-18); BUN/CREATININE RATIO 16.8 (10.0-20.0); CHLORIDE 109 MMOL/L (99-107); CREATININE 1.49 MG/DL (0.60-1.10); GLUCOSE 83 MG/DL (70-104); SODIUM 142 MMOL/L (135-145); TOTAL PROTEIN 5.4 G/DL (6.4-8.2); eCRCL 70 ML/MIN; eGFR 55 ML/MIN
[2024-08-16 21:09] LABS: POTASSIUM 4.1 MMOL/L (3.5-5.1)
[2024-08-16 21:14] LABS: CALCIUM 5.9 MG/DL (8.5-10.1)
[2024-08-16] MEDS: LORazepam 2 mg/ml vial IV PRN (22:45)
[2024-08-16] MEDS: CALCIUM GLUC 1gm/50ml NACL,iso 50 ML IV ONE (23:20)
[2024-08-17] VITALS (33 sets, daily range): BP systolic 91–139; BP diastolic 52–90; PULSE 75–105; RESP 26–44; TEMP 98.4–100.4; O2SAT 91–97
[2024-08-17 03:48] LABS: BASOPHILS % (AUTO) 0.3 % (0-1); EOSINOPHILS % (AUTO) 0.2 % (0-6); HEMATOCRIT 42.6 % (42.0-52.0); HEMOGLOBIN 13.9 g/dl (14.0-17.9); LYMPHOCYTES # (AUTO) 1.6 X10'3 (1.1-4.8); LYMPHOCYTES % (AUTO) 13.5 % (21-51); MEAN CORPUSCULAR HEMOGLOBIN 32.4 PG (27.0-31.0); MEAN CORPUSCULAR HGB CONC 32.7 g/dL (33.0-36.5); MEAN PLATELET VOLUME 9.3 FL (7.4-10.4); MONOCYTES # (AUTO) 1.1 X10'3 (0-0.9); MONOCYTES % (AUTO) 9.1 % (2-12); NEUTROPHILS # (AUTO) 9.2 X10'3 (1.8-7.7); NEUTROPHILS % (AUTO) 76.9 % (42-75); PLATELET COUNT 121 X10'3 (140-440); RED CELL DISTRIBUTION WIDTH 14.3 % (11.5-14.5)
[2024-08-17 03:59] LABS: ALANINE AMINOTRANSFERASE 57 U/L (12-78); ALBUMIN 1.8 G/DL (3.4-5.0); ALBUMIN/GLOBULIN RATIO 0.5 (1.1-1.5); ALKALINE PHOSPHATASE 29 IU/L (46-116); ANION GAP 9 (8-16); ASPARTATE AMINO TRANSFERASE 111 U/L (10-37); BILIRUBIN,TOTAL 0.6 MG/DL (0.1-1.0); BLOOD UREA NITROGEN 23 MG/DL (7-18); BUN/CREATININE RATIO 20.2 (10.0-20.0); CHLORIDE 109 MMOL/L (99-107); CREATININE 1.14 MG/DL (0.60-1.10); GLUCOSE 103 MG/DL (70-104); SODIUM 141 MMOL/L (135-145); TOTAL CARBON DIOXIDE 23.5 MMOL/L (24-32); TOTAL PROTEIN 5.6 G/DL (6.4-8.2); eCRCL 91 ML/MIN; eGFR 75 ML/MIN
[2024-08-17 04:51] LABS: ABG BASE EXCESS -5.5 mmol/L (-2.0-3.0); ABG HCO3 22.2 mmol/L (21.0-28.0); ABG OXYGEN SATURATION 96.7 % (94.0-98.0); ABG PCO2 (T) 54.1 mmHg (35.0-48.0); ABG PH (T) 7.236 (7.350-7.450); ABG PO2 (T) 97.1 mmHg (83.0-108.0); ALLEN'S TEST POSITIVE; FCOHb 0.7 % (0.5-1.5); FHHb 3.3 % (0.0-5.0); FLOW 15 L/min; MODE HIGH FLOW; PATIENT TEMPERATURE 37.8
[2024-08-17 04:56] LABS: MAGNESIUM 1.4 MG/DL (1.5-2.4); PHOSPHORUS 3.2 MG/DL (2.3-4.5)
[2024-08-17 05:00] LABS: POTASSIUM 4.4 MMOL/L (3.5-5.1)
[2024-08-17] MEDS: magnesium sulf-water 2g/50mL 50 ML IV PRN (05:16)
[2024-08-17 07:07] LABS: ABG BASE EXCESS -5.1 mmol/L (-2.0-3.0); ABG HCO3 22.3 mmol/L (21.0-28.0); ABG OXYGEN SATURATION 95.9 % (94.0-98.0); ABG PCO2 (T) 53.4 mmHg (35.0-48.0); ABG PH (T) 7.244 (7.350-7.450); ALLEN'S TEST POSITIVE; FCOHb 0.7 % (0.5-1.5); FHHb 4.1 % (0.0-5.0); FMetHb 0.1 % (0.0-1.5); FO2Hb 95.1 % (94.0-98.0); MODE MASK - BIPAP; PATIENT TEMPERATURE 38.2; RESPIRATORY RATE 12 b/min; TIDAL VOLUME 539 mL
[2024-08-17 07:10] LABS: HEPATITIS C VIRUS ANTIBODY Non Reactive (Non Reactive)
[2024-08-17] MEDS: furosemide 10 MG/1 ML 10ml inj IV ONE (07:23)
[2024-08-17] MEDS: pantoprazole 40 MG vial IV SCH (07:25)
[2024-08-17 08:14] LABS: ALANINE AMINOTRANSFERASE 54 U/L (12-78); ALBUMIN 1.6 G/DL (3.4-5.0); ALBUMIN/GLOBULIN RATIO 0.4 (1.1-1.5); ALKALINE PHOSPHATASE 29 IU/L (46-116); ANION GAP 8 (8-16); ASPARTATE AMINO TRANSFERASE 109 U/L (10-37); BILIRUBIN,TOTAL 0.6 MG/DL (0.1-1.0); BLOOD UREA NITROGEN 22 MG/DL (7-18); BUN/CREATININE RATIO 20.4 (10.0-20.0); CHLORIDE 106 MMOL/L (99-107); CREATININE 1.08 MG/DL (0.60-1.10); GLUCOSE 94 MG/DL (70-104); POTASSIUM 4.3 MMOL/L (3.5-5.1); SODIUM 137 MMOL/L (135-145); TOTAL PROTEIN 5.5 G/DL (6.4-8.2); eCRCL 96 ML/MIN; eGFR 80 ML/MIN
[2024-08-17] MEDS: chlordiazePOXIDE 25mg capsule PO PRN (08:53)
[2024-08-17] MEDS: vancomycin/NS 1 GM ADD-VANTAGE 250 ML IV ONE (09:11)
[2024-08-17] MEDS: morphine 2 MG/ML inj. syringe IV PRN (09:12)
[2024-08-17 09:14] LABS: HBSAG SCREEN Negative (Negative); HEP B SURF AB Non Reactive (.)
[2024-08-17] MEDS: acetaminophen 325mg tablet PO PRN (09:40)
[2024-08-17 11:47] LABS: ALANINE AMINOTRANSFERASE 57 U/L (12-78); ALBUMIN 1.7 G/DL (3.4-5.0); ALBUMIN/GLOBULIN RATIO 0.4 (1.1-1.5); ALKALINE PHOSPHATASE 37 IU/L (46-116); ANION GAP 9 (8-16); ASPARTATE AMINO TRANSFERASE 106 U/L (10-37); BILIRUBIN,TOTAL 0.7 MG/DL (0.1-1.0); BLOOD UREA NITROGEN 20 MG/DL (7-18); BUN/CREATININE RATIO 21.1 (10.0-20.0); CHLORIDE 107 MMOL/L (99-107); CREATININE 0.95 MG/DL (0.60-1.10); GLUCOSE 86 MG/DL (70-104); SODIUM 142 MMOL/L (135-145); TOTAL CARBON DIOXIDE 25.7 MMOL/L (24-32); TOTAL PROTEIN 5.7 G/DL (6.4-8.2); eCRCL 109 ML/MIN; eGFR > 90 ML/MIN
[2024-08-17 12:09] LABS: CALCIUM 5.9 MG/DL (8.5-10.1)
[2024-08-17 12:10] LABS: POTASSIUM 4.1 MMOL/L (3.5-5.1)
[2024-08-17] MEDS ORDERED: LORazepam 1 MG tablet PO PRN (12:55)
[2024-08-17] MEDS ORDERED: LORazepam 2 mg/ml vial IV PRN (12:55)
[2024-08-17] MEDS ORDERED: ringers solution, lacted 1,000 ML IV SCH (13:05)
[2024-08-17] MEDS: calcium chloride 1,000 MG in NS 100ml IV soln (110ml) IV SCH (13:27)
[2024-08-17] MEDS: normal saline 1000ml 1,000 ML IV SCH ×2 (13:38→23:13)
[2024-08-17] MEDS: ringers solution, lacted 1,000 ML IV SCH (16:28)
[2024-08-17 16:39] LABS: MAGNESIUM 1.9 MG/DL (1.5-2.4)
[2024-08-17 16:43] LABS: ALANINE AMINOTRANSFERASE 55 U/L (12-78); ALBUMIN 1.7 G/DL (3.4-5.0); ALBUMIN/GLOBULIN RATIO 0.4 (1.1-1.5); ALKALINE PHOSPHATASE 37 IU/L (46-116); ANION GAP 9 (8-16); BILIRUBIN,TOTAL 0.7 MG/DL (0.1-1.0); BLOOD UREA NITROGEN 20 MG/DL (7-18); BUN/CREATININE RATIO 22.5 (10.0-20.0); CALCIUM 6.5 MG/DL (8.5-10.1); CHLORIDE 108 MMOL/L (99-107); CREATININE 0.89 MG/DL (0.60-1.10); GLUCOSE 90 MG/DL (70-104); SODIUM 142 MMOL/L (135-145); TOTAL CARBON DIOXIDE 24.8 MMOL/L (24-32); TOTAL PROTEIN 5.8 G/DL (6.4-8.2); eCRCL 116 ML/MIN; eGFR > 90 ML/MIN
[2024-08-17 16:44] LABS: ASPARTATE AMINO TRANSFERASE 102 U/L (10-37); PHOSPHORUS 2.8 MG/DL (2.3-4.5); POTASSIUM 4.8 MMOL/L (3.5-5.1)
[2024-08-18] VITALS (31 sets, daily range): BP systolic 115–144; BP diastolic 67–97; PULSE 79–98; RESP 28–46; O2SAT 93–97
[2024-08-18 03:21] LABS: BASOPHILS % (AUTO) 0.5 % (0-1); EOSINOPHILS # (AUTO) 0.1 X10'3 (0-0.9); EOSINOPHILS % (AUTO) 0.7 % (0-6); HEMATOCRIT 36.2 % (42.0-52.0); HEMOGLOBIN 12.2 g/dl (14.0-17.9); LYMPHOCYTES # (AUTO) 0.8 X10'3 (1.1-4.8); LYMPHOCYTES % (AUTO) 8.2 % (21-51); MEAN CORPUSCULAR HGB CONC 33.7 g/dL (33.0-36.5); MEAN CORPUSCULAR VOLUME 97.8 FL (78-98); MEAN PLATELET VOLUME 8.8 FL (7.4-10.4); MONOCYTES % (AUTO) 11.2 % (2-12); NEUTROPHILS # (AUTO) 7.3 X10'3 (1.8-7.7); NEUTROPHILS % (AUTO) 79.4 % (42-75); PLATELET COUNT 134 X10'3 (140-440); WHITE BLOOD COUNT 9.2 X10'3 (4.5-11.0)
[2024-08-18 03:36] LABS: ALANINE AMINOTRANSFERASE 47 U/L (12-78); ALBUMIN 1.6 G/DL (3.4-5.0); ALBUMIN/GLOBULIN RATIO 0.4 (1.1-1.5); ALKALINE PHOSPHATASE 35 IU/L (46-116); ANION GAP 7 (8-16); ASPARTATE AMINO TRANSFERASE 70 U/L (10-37); BILIRUBIN,TOTAL 0.6 MG/DL (0.1-1.0); BLOOD UREA NITROGEN 12 MG/DL (7-18); BUN/CREATININE RATIO 17.4 (10.0-20.0); CALCIUM 8.1 MG/DL (8.5-10.1); CHLORIDE 109 MMOL/L (99-107); CREATININE 0.69 MG/DL (0.60-1.10); GLUCOSE 106 MG/DL (70-104); LIPASE 200 U/L (16-77); MAGNESIUM 2.1 MG/DL (1.5-2.4); PHOSPHORUS 1.9 MG/DL (2.3-4.5); POTASSIUM 4.1 MMOL/L (3.5-5.1); SODIUM 144 MMOL/L (135-145); TOTAL CARBON DIOXIDE 28.3 MMOL/L (24-32); TOTAL PROTEIN 5.5 G/DL (6.4-8.2); eCRCL 150 ML/MIN; eGFR > 90 ML/MIN
[2024-08-18 03:37] LABS: C-REACTIVE PROTEIN 35.07 MG/DL (0.0-0.5)
[2024-08-18 03:41] LABS: ABG BASE EXCESS -0.6 mmol/L (-2.0-3.0); ABG OXYGEN SATURATION 97.5 % (94.0-98.0); ABG PH (T) 7.307 (7.350-7.450); ABG PO2 (T) 102.9 mmHg (83.0-108.0); ALLEN'S TEST POSITIVE; FCOHb 0.2 % (0.5-1.5); FHHb 2.5 % (0.0-5.0); FLOW 55 L/min; FMetHb 0.3 % (0.0-1.5); MODE HIGH FLOW; PATIENT TEMPERATURE 38.2
[2024-08-18] MEDS ORDERED: sodium phosphate inj. 30 MMOL in dextrose 5%-water 250 ML IV PRN (05:35)
[2024-08-18] MEDS ORDERED: Neutra Phos packet PO PRN (05:35)
[2024-08-18] MEDS: chlordiazePOXIDE 25mg capsule PO SCH (07:33)
[2024-08-18 11:55] LABS: ABG BASE EXCESS -1.4 mmol/L (-2.0-3.0); ABG HCO3 24.1 mmol/L (21.0-28.0); ABG OXYGEN SATURATION 97.3 % (94.0-98.0); ABG PCO2 (T) 43.7 mmHg (35.0-48.0); ABG PO2 (T) 87.6 mmHg (83.0-108.0); ALLEN'S TEST POSITIVE; FCOHb 0.6 % (0.5-1.5); FHHb 2.7 % (0.0-5.0); FLOW 55 L/min; FMetHb 0.3 % (0.0-1.5); FO2Hb 96.4 % (94.0-98.0); MODE HIGH FLOW
[2024-08-18 16:39] LABS: MAGNESIUM 2.1 MG/DL (1.5-2.4); PHOSPHORUS 1.4 MG/DL (2.3-4.5); POTASSIUM 3.7 MMOL/L (3.5-5.1)
[2024-08-18] MEDS: sodium phosphate inj. 15 MMOL in dextrose 5%-water 250 ML IV PRN (16:47)
[2024-08-19] VITALS (29 sets, daily range): BP systolic 117–145; BP diastolic 72–84; PULSE 78–129; RESP 26–51; O2SAT 94–97
[2024-08-19 05:10] LABS: HIV-1 RNA Non Reactive (Non Reactive); HIV-2 RNA Non Reactive (Non Reactive)
[2024-08-19 06:00] LABS: BASOPHILS % (AUTO) 0.1 % (0-1); EOSINOPHILS # (AUTO) 0.1 X10'3 (0-0.9); EOSINOPHILS % (AUTO) 0.6 % (0-6); HEMATOCRIT 35.2 % (42.0-52.0); HEMOGLOBIN 11.6 g/dl (14.0-17.9); LYMPHOCYTES # (AUTO) 0.8 X10'3 (1.1-4.8); LYMPHOCYTES % (AUTO) 5.4 % (21-51); MEAN CORPUSCULAR HEMOGLOBIN 32.5 PG (27.0-31.0); MEAN CORPUSCULAR VOLUME 98.3 FL (78-98); MONOCYTES # (AUTO) 1.6 X10'3 (0-0.9); MONOCYTES % (AUTO) 10.2 % (2-12); NEUTROPHILS # (AUTO) 12.9 X10'3 (1.8-7.7); NEUTROPHILS % (AUTO) 83.7 % (42-75); PLATELET COUNT 189 X10'3 (140-440); RED BLOOD COUNT 3.58 X10'6 (4.70-6.10); RED CELL DISTRIBUTION WIDTH 14.5 % (11.5-14.5); WHITE BLOOD COUNT 15.5 X10'3 (4.5-11.0)
[2024-08-19 06:25] LABS: ALANINE AMINOTRANSFERASE 40 U/L (12-78); ALBUMIN 1.5 G/DL (3.4-5.0); ALBUMIN/GLOBULIN RATIO 0.4 (1.1-1.5); ALKALINE PHOSPHATASE 43 IU/L (46-116); ANION GAP 9 (8-16); ASPARTATE AMINO TRANSFERASE 54 U/L (10-37); BILIRUBIN,TOTAL 0.6 MG/DL (0.1-1.0); BLOOD UREA NITROGEN 8 MG/DL (7-18); BUN/CREATININE RATIO 14.8 (10.0-20.0); CALCIUM 7.5 MG/DL (8.5-10.1); CHLORIDE 107 MMOL/L (99-107); CREATININE 0.54 MG/DL (0.60-1.10); GLUCOSE 106 MG/DL (70-104); LIPASE 113 U/L (16-77); MAGNESIUM 2.5 MG/DL (1.5-2.4); PHOSPHORUS 1.8 MG/DL (2.3-4.5); POTASSIUM 3.6 MMOL/L (3.5-5.1); SODIUM 144 MMOL/L (135-145); TOTAL CARBON DIOXIDE 28.4 MMOL/L (24-32); TOTAL PROTEIN 5.7 G/DL (6.4-8.2); eCRCL 192 ML/MIN; eGFR > 90 ML/MIN
[2024-08-19 06:28] LABS: C-REACTIVE PROTEIN 31.07 MG/DL (0.0-0.5)
[2024-08-19] MEDS: thiamine 100mg tablet PO SCH (08:41)
[2024-08-19] MEDS: folic acid 1mg tablet PO SCH (08:41)
[2024-08-19] MEDS: quetiapine 100mg tablet PO SCH (08:41)
[2024-08-19 10:02] LABS: TOTAL CELLS COUNTED 100
[2024-08-19 10:03] LABS: PLATELET ESTIMATE NORMAL
[2024-08-19] MEDS ORDERED: LORazepam 1 MG tablet PO PRN (12:55)
[2024-08-19 20:04] LABS: ALBUMIN 1.4 G/DL (3.4-5.0); ANION GAP 8 (8-16); BILIRUBIN,TOTAL 0.6 MG/DL (0.1-1.0); BLOOD UREA NITROGEN 7 MG/DL (7-18); BUN/CREATININE RATIO 11.5 (10.0-20.0); CALCIUM 7.4 MG/DL (8.5-10.1); CHLORIDE 106 MMOL/L (99-107); CREATININE 0.61 MG/DL (0.60-1.10); GLUCOSE 141 MG/DL (70-104); MAGNESIUM 2.6 MG/DL (1.5-2.4); PHOSPHORUS 1.7 MG/DL (2.3-4.5); POTASSIUM 3.2 MMOL/L (3.5-5.1); SODIUM 145 MMOL/L (135-145); TOTAL CARBON DIOXIDE 30.7 MMOL/L (24-32); TOTAL PROTEIN 5.6 G/DL (6.4-8.2); eCRCL 170 ML/MIN; eGFR > 90 ML/MIN
[2024-08-19 20:05] LABS: ALANINE AMINOTRANSFERASE 42 U/L (12-78); ALBUMIN/GLOBULIN RATIO 0.3 (1.1-1.5); ALKALINE PHOSPHATASE 39 IU/L (46-116); ASPARTATE AMINO TRANSFERASE 50 U/L (10-37)
[2024-08-19] MEDS ORDERED: magnesium sulf-water 2g/50mL 50 ML IV PRN (20:25)
[2024-08-19] MEDS ORDERED: potassium Cl 20 mEq SR tablet PO PRN (20:25)
[2024-08-19] MEDS: potassium Cl 40MEQ/1/2NS 520ml 520 ML IV PRN (21:28)
[2024-08-20] VITALS (31 sets, daily range): BP systolic 116–166; BP diastolic 73–110; PULSE 89–163; RESP 22–55; O2SAT 92–97
[2024-08-20 03:02] LABS: ABG BASE EXCESS 3.7 mmol/L (-2.0-3.0); ABG HCO3 27.4 mmol/L (21.0-28.0); ABG OXYGEN SATURATION 96.7 % (94.0-98.0); ABG PCO2 (T) 39.7 mmHg (35.0-48.0); ABG PH (T) 7.461 (7.350-7.450); ABG PO2 (T) 86.9 mmHg (83.0-108.0); ALLEN'S TEST POSITIVE; FCOHb 0.2 % (0.5-1.5); FHHb 3.3 % (0.0-5.0); FMetHb 0.3 % (0.0-1.5); FO2Hb 96.2 % (94.0-98.0); MODE MASK - BIPAP; RESPIRATORY RATE 12 b/min; TIDAL VOLUME 500 mL; TOTAL HEMOGLOBIN 11.6 G/dl (13.5-17.5)
[2024-08-20 03:30] LABS: BASOPHILS % (AUTO) 0.1 % (0-1); EOSINOPHILS # (AUTO) 0.1 X10'3 (0-0.9); EOSINOPHILS % (AUTO) 0.5 % (0-6); HEMATOCRIT 32.6 % (42.0-52.0); HEMOGLOBIN 10.9 g/dl (14.0-17.9); LYMPHOCYTES % (AUTO) 5.1 % (21-51); MEAN CORPUSCULAR HEMOGLOBIN 32.7 PG (27.0-31.0); MEAN CORPUSCULAR HGB CONC 33.5 g/dL (33.0-36.5); MEAN CORPUSCULAR VOLUME 97.5 FL (78-98); MEAN PLATELET VOLUME 8.3 FL (7.4-10.4); MONOCYTES # (AUTO) 1.2 X10'3 (0-0.9); MONOCYTES % (AUTO) 5.6 % (2-12); NEUTROPHILS # (AUTO) 18.2 X10'3 (1.8-7.7); NEUTROPHILS % (AUTO) 88.7 % (42-75); PLATELET COUNT 219 X10'3 (140-440); RED BLOOD COUNT 3.34 X10'6 (4.70-6.10); RED CELL DISTRIBUTION WIDTH 14.1 % (11.5-14.5); WHITE BLOOD COUNT 20.5 X10'3 (4.5-11.0)
[2024-08-20 03:53] LABS: NUCLEATED RED BLOOD CELLS 2 /100WBC (0-0); TOTAL CELLS COUNTED 100
[2024-08-20 03:54] LABS: ALANINE AMINOTRANSFERASE 37 U/L (12-78); ALBUMIN 1.3 G/DL (3.4-5.0); ALBUMIN/GLOBULIN RATIO 0.3 (1.1-1.5); ALKALINE PHOSPHATASE 42 IU/L (46-116); ANION GAP 6 (8-16); ASPARTATE AMINO TRANSFERASE 47 U/L (10-37); BILIRUBIN,TOTAL 0.5 MG/DL (0.1-1.0); BLOOD UREA NITROGEN 6 MG/DL (7-18); BUN/CREATININE RATIO 11.1 (10.0-20.0); CALCIUM 7.4 MG/DL (8.5-10.1); CHLORIDE 106 MMOL/L (99-107); CREATININE 0.54 MG/DL (0.60-1.10); GLUCOSE 127 MG/DL (70-104); LIPASE 128 U/L (16-77); MAGNESIUM 2.5 MG/DL (1.5-2.4); PHOSPHORUS 1.4 MG/DL (2.3-4.5); SODIUM 142 MMOL/L (135-145); TOTAL CARBON DIOXIDE 29.9 MMOL/L (24-32); TOTAL PROTEIN 5.5 G/DL (6.4-8.2); eCRCL 192 ML/MIN; eGFR > 90 ML/MIN
[2024-08-20 03:55] LABS: C-REACTIVE PROTEIN 29.71 MG/DL (0.0-0.5); POTASSIUM 3.7 MMOL/L (3.5-5.1)
[2024-08-20] MEDS: chlordiazePOXIDE 25mg capsule PO SCH (06:35)
[2024-08-20 10:49] LABS: ALBUMIN 1.3 G/DL (3.4-5.0); ALBUMIN/GLOBULIN RATIO 0.3 (1.1-1.5); ANION GAP 6 (8-16); ASPARTATE AMINO TRANSFERASE 40 U/L (10-37); BILIRUBIN,TOTAL 0.5 MG/DL (0.1-1.0); BLOOD UREA NITROGEN 7 MG/DL (7-18); BUN/CREATININE RATIO 12.7 (10.0-20.0); CALCIUM 7.5 MG/DL (8.5-10.1); CHLORIDE 106 MMOL/L (99-107); CREATININE 0.55 MG/DL (0.60-1.10); GLUCOSE 118 MG/DL (70-104); MAGNESIUM 2.5 MG/DL (1.5-2.4); PHOSPHORUS 1.5 MG/DL (2.3-4.5); POTASSIUM 3.5 MMOL/L (3.5-5.1); SODIUM 142 MMOL/L (135-145); TOTAL CARBON DIOXIDE 29.9 MMOL/L (24-32); TOTAL PROTEIN 5.5 G/DL (6.4-8.2); eCRCL 188 ML/MIN; eGFR > 90 ML/MIN
[2024-08-20 10:50] LABS: ALANINE AMINOTRANSFERASE 32 U/L (12-78); ALKALINE PHOSPHATASE 39 IU/L (46-116)
[2024-08-20] MEDS: LORazepam 2 mg/ml vial IV PRN (12:33)
[2024-08-20] MEDS: metoprolol tartrate 1mg/ml inj IV STA (12:55)
[2024-08-20 12:57] LABS: ABG BASE EXCESS 2.1 mmol/L (-2.0-3.0); ABG HCO3 26.3 mmol/L (21.0-28.0); ABG PCO2 (T) 41.4 mmHg (35.0-48.0); ABG PH (T) 7.425 (7.350-7.450); ABG PO2 (T) 83.1 mmHg (83.0-108.0); ALLEN'S TEST POSITIVE; FCOHb 0.4 % (0.5-1.5); FLOW 55 L/min; FMetHb 0.3 % (0.0-1.5); FO2Hb 95.3 % (94.0-98.0); MODE HIGH FLOW; PATIENT TEMPERATURE 38.2; TOTAL HEMOGLOBIN 11.9 G/dl (13.5-17.5)
[2024-08-20] MEDS: acetaminophen 1,000mg/100ml IV 100 ML IV ONE (13:30)
[2024-08-20] MEDS: haloperidol lactate 5mg/ml inj IVH SCH (15:34)
[2024-08-20] MEDS: piperacillin/tazo 4.5gm/100ml IVPB IV SCH (15:34)
[2024-08-20] MEDS: metoprolol tartrate 25mg tablet PO SCH (20:07)
[2024-08-20] MEDS: acetaminophen 1,000mg/100ml IV 100 ML IV PRN (22:11)
[2024-08-21] VITALS (31 sets, daily range): BP systolic 123–196; BP diastolic 72–100; PULSE 93–152; RESP 22–53; O2SAT 89–99
[2024-08-21 01:14] LABS: BASOPHILS # (AUTO) 0.1 X10'3 (0-0.2); BASOPHILS % (AUTO) 0.3 % (0-1); EOSINOPHILS # (AUTO) 0.1 X10'3 (0-0.9); EOSINOPHILS % (AUTO) 0.4 % (0-6); HEMATOCRIT 33.1 % (42.0-52.0); HEMOGLOBIN 10.8 g/dl (14.0-17.9); LYMPHOCYTES # (AUTO) 1.1 X10'3 (1.1-4.8); MEAN CORPUSCULAR HEMOGLOBIN 31.8 PG (27.0-31.0); MEAN CORPUSCULAR HGB CONC 32.6 g/dL (33.0-36.5); MEAN CORPUSCULAR VOLUME 97.5 FL (78-98); MEAN PLATELET VOLUME 8.5 FL (7.4-10.4); MONOCYTES # (AUTO) 1.3 X10'3 (0-0.9); MONOCYTES % (AUTO) 5.7 % (2-12); NEUTROPHILS % (AUTO) 88.6 % (42-75); PLATELET COUNT 290 X10'3 (140-440); RED CELL DISTRIBUTION WIDTH 14.6 % (11.5-14.5); WHITE BLOOD COUNT 22.6 X10'3 (4.5-11.0)
[2024-08-21 01:28] LABS: ALANINE AMINOTRANSFERASE 29 U/L (12-78); ALBUMIN 1.2 G/DL (3.4-5.0); ALBUMIN/GLOBULIN RATIO 0.3 (1.1-1.5); ALKALINE PHOSPHATASE 46 IU/L (46-116); ANION GAP 7 (8-16); ASPARTATE AMINO TRANSFERASE 42 U/L (10-37); BILIRUBIN,TOTAL 0.5 MG/DL (0.1-1.0); BLOOD UREA NITROGEN 8 MG/DL (7-18); BUN/CREATININE RATIO 11.8 (10.0-20.0); CALCIUM 7.9 MG/DL (8.5-10.1); CHLORIDE 106 MMOL/L (99-107); CREATININE 0.68 MG/DL (0.60-1.10); GLUCOSE 120 MG/DL (70-104); LIPASE 132 U/L (16-77); MAGNESIUM 2.5 MG/DL (1.5-2.4); PHOSPHORUS 1.8 MG/DL (2.3-4.5); POTASSIUM 3.1 MMOL/L (3.5-5.1); SODIUM 143 MMOL/L (135-145); TOTAL CARBON DIOXIDE 30.1 MMOL/L (24-32); TOTAL PROTEIN 5.5 G/DL (6.4-8.2); eCRCL 152 ML/MIN; eGFR > 90 ML/MIN
[2024-08-21 01:42] LABS: TOTAL CELLS COUNTED 100
[2024-08-21 11:15] LABS: C-REACTIVE PROTEIN 30.93 MG/DL (0.0-0.5)
[2024-08-21] MEDS: labetalol 20mg/4ml (5mg/ml) syringe IV STA (14:50)
[2024-08-21] MEDS: morphine 2 MG/ML inj. syringe IV PRN (15:17)
[2024-08-21] MEDS ORDERED: magnesium hydroxide 30ml (MOM) UD suspension NG PRN (15:49)
[2024-08-21] MEDS ORDERED: mag hydrox/Alum hydrox/simeth 30ml oral suspension NG PRN (15:49)
[2024-08-21] MEDS ORDERED: Neutra Phos packet NG PRN (15:50)
[2024-08-21] MEDS: labetalol 100mg tablet NG SCH (18:42)
[2024-08-21] MEDS: docusate sodium 100mg/10ml UD cup NG SCH (19:04)
[2024-08-21] MEDS ORDERED: labetalol 100mg tablet PO SCH (20:00)
[2024-08-22] VITALS (34 sets, daily range): BP systolic 108–182; BP diastolic 71–114; PULSE 94–130; RESP 20–47; O2SAT 88–97
[2024-08-22 03:55] LABS: BASOPHILS # (AUTO) 0.1 X10'3 (0-0.2); BASOPHILS % (AUTO) 0.4 % (0-1); EOSINOPHILS # (AUTO) 0.2 X10'3 (0-0.9); EOSINOPHILS % (AUTO) 0.7 % (0-6); HEMATOCRIT 30.6 % (42.0-52.0); HEMOGLOBIN 10.3 g/dl (14.0-17.9); LYMPHOCYTES # (AUTO) 0.6 X10'3 (1.1-4.8); LYMPHOCYTES % (AUTO) 2.5 % (21-51); MEAN CORPUSCULAR HEMOGLOBIN 32.8 PG (27.0-31.0); MEAN CORPUSCULAR HGB CONC 33.6 g/dL (33.0-36.5); MEAN CORPUSCULAR VOLUME 97.5 FL (78-98); MEAN PLATELET VOLUME 8.3 FL (7.4-10.4); MONOCYTES # (AUTO) 1.3 X10'3 (0-0.9); MONOCYTES % (AUTO) 5.6 % (2-12); NEUTROPHILS # (AUTO) 21.1 X10'3 (1.8-7.7); NEUTROPHILS % (AUTO) 90.8 % (42-75); PLATELET COUNT 333 X10'3 (140-440); RED BLOOD COUNT 3.13 X10'6 (4.70-6.10); RED CELL DISTRIBUTION WIDTH 14.6 % (11.5-14.5); WHITE BLOOD COUNT 23.2 X10'3 (4.5-11.0)
[2024-08-22 04:15] LABS: TOTAL CELLS COUNTED 100
[2024-08-22 04:32] LABS: ALANINE AMINOTRANSFERASE 25 U/L (12-78); ALBUMIN 1.2 G/DL (3.4-5.0); ALBUMIN/GLOBULIN RATIO 0.3 (1.1-1.5); ALKALINE PHOSPHATASE 68 IU/L (46-116); ANION GAP 4 (8-16); ASPARTATE AMINO TRANSFERASE 42 U/L (10-37); BILIRUBIN,TOTAL 0.5 MG/DL (0.1-1.0); BLOOD UREA NITROGEN 5 MG/DL (7-18); BUN/CREATININE RATIO 8.1 (10.0-20.0); CALCIUM 7.8 MG/DL (8.5-10.1); CHLORIDE 104 MMOL/L (99-107); CREATININE 0.62 MG/DL (0.60-1.10); GLUCOSE 166 MG/DL (70-104); LIPASE 146 U/L (16-77); MAGNESIUM 2.2 MG/DL (1.5-2.4); PHOSPHORUS 2.7 MG/DL (2.3-4.5); POTASSIUM 3.2 MMOL/L (3.5-5.1); PREALBUMIN 7.9 MG/DL (19-36); SODIUM 142 MMOL/L (135-145); TOTAL CARBON DIOXIDE 34.5 MMOL/L (24-32); TOTAL PROTEIN 5.5 G/DL (6.4-8.2); eCRCL 167 ML/MIN; eGFR > 90 ML/MIN
[2024-08-22 04:45] LABS: C-REACTIVE PROTEIN 28.95 MG/DL (0.0-0.5)
[2024-08-22] MEDS: potassium Cl 20 mEq SR tablet PO PRN (05:54)
[2024-08-22] MEDS: labetalol 100mg tablet NG SCH (08:58)
[2024-08-22] MEDS: folic acid 1mg tablet NG SCH (08:58)
[2024-08-22] MEDS: methylnaltrexone br 12mg/0.6ml inj***SubQ only SQ SCH (12:56)
[2024-08-22] MEDS: lactulose 20gm/30ml cup NG SCH (12:56)
[2024-08-22] MEDS: MULTIVIT-MIN/FERROUS GLUCONATE 9 MG/15 ML LIQUID NG SCH (12:56)
[2024-08-22] MEDS ORDERED: dextrose 50%-water 50ml dispensing syringe IV PRN ×2 (17:00)
[2024-08-22] MEDS ORDERED: INSULIN LISPRO 100 UNIT/ML INSULN.PEN MULTI-DOSE SQ SCH (17:00)
[2024-08-22] MEDS ORDERED: glucagon, human recombinant 1mg kit SUBCUT PRN (17:00)
[2024-08-22] MEDS ORDERED: DEXTROSE 15 GM of carb/4 tabs (each vial/BOTTLE has 4 tablets) PO PRN ×2 (17:00)
[2024-08-22] MEDS: quetiapine 100mg tablet NG SCH (20:33)
[2024-08-22] MEDS: insulin regular, human U-100 10ml vial - multi-dose SQ SCH (20:49)
[2024-08-22] MEDS: ondansetron/PF 4mg/2ml inj IV PRN (21:18)
[2024-08-22 22:56] LABS: ABG BASE EXCESS 8.4 mmol/L (-2.0-3.0); ABG HCO3 38.3 mmol/L (21.0-28.0); ABG OXYGEN SATURATION 88.3 % (94.0-98.0); ABG PCO2 (T) 88.3 mmHg (35.0-48.0); ABG PH (T) 7.252 (7.350-7.450); ALLEN'S TEST POSITIVE; FCOHb 0.3 % (0.5-1.5); FHHb 11.6 % (0.0-5.0); FLOW 55 L/min; FMetHb 0.3 % (0.0-1.5); FO2Hb 87.8 % (94.0-98.0); MODE HIGH FLOW; PATIENT TEMPERATURE 36.6; TOTAL HEMOGLOBIN 10.8 G/dl (13.5-17.5)
[2024-08-23] VITALS (32 sets, daily range): BP systolic 118–175; BP diastolic 64–88; PULSE 86–133; RESP 18–40; O2SAT 90–97
[2024-08-23 01:14] LABS: ABG BASE EXCESS 10.8 mmol/L (-2.0-3.0); ABG HCO3 39.6 mmol/L (21.0-28.0); ABG OXYGEN SATURATION 93.3 % (94.0-98.0); ABG PCO2 (T) 79.5 mmHg (35.0-48.0); ABG PH (T) 7.314 (7.350-7.450); ABG PO2 (T) 69.9 mmHg (83.0-108.0); ALLEN'S TEST POSITIVE; FCOHb 0.3 % (0.5-1.5); FHHb 6.7 % (0.0-5.0); MODE MASK - BIPAP; PATIENT TEMPERATURE 36.6; RESPIRATORY RATE 16 b/min; TIDAL VOLUME 469 mL; TOTAL HEMOGLOBIN 10.6 G/dl (13.5-17.5)
[2024-08-23 03:22] LABS: BASOPHILS % (AUTO) 0.1 % (0-1); EOSINOPHILS # (AUTO) 0.1 X10'3 (0-0.9); EOSINOPHILS % (AUTO) 0.3 % (0-6); HEMATOCRIT 30.6 % (42.0-52.0); LYMPHOCYTES # (AUTO) 0.5 X10'3 (1.1-4.8); LYMPHOCYTES % (AUTO) 2.2 % (21-51); MEAN CORPUSCULAR HEMOGLOBIN 32.7 PG (27.0-31.0); MEAN CORPUSCULAR HGB CONC 32.7 g/dL (33.0-36.5); MEAN CORPUSCULAR VOLUME 99.9 FL (78-98); MEAN PLATELET VOLUME 8.4 FL (7.4-10.4); MONOCYTES # (AUTO) 1.3 X10'3 (0-0.9); NEUTROPHILS # (AUTO) 19.1 X10'3 (1.8-7.7); NEUTROPHILS % (AUTO) 91.4 % (42-75); PLATELET COUNT 410 X10'3 (140-440); RED BLOOD COUNT 3.07 X10'6 (4.70-6.10); RED CELL DISTRIBUTION WIDTH 14.7 % (11.5-14.5); WHITE BLOOD COUNT 20.9 X10'3 (4.5-11.0)
[2024-08-23 03:39] LABS: ALANINE AMINOTRANSFERASE 30 U/L (12-78); ALBUMIN 1.2 G/DL (3.4-5.0); ALBUMIN/GLOBULIN RATIO 0.3 (1.1-1.5); ALKALINE PHOSPHATASE 62 IU/L (46-116); ANION GAP 1 (8-16); ASPARTATE AMINO TRANSFERASE 36 U/L (10-37); BILIRUBIN,TOTAL 0.3 MG/DL (0.1-1.0); BLOOD UREA NITROGEN 5 MG/DL (7-18); BUN/CREATININE RATIO 9.8 (10.0-20.0); CHLORIDE 105 MMOL/L (99-107); CREATININE 0.51 MG/DL (0.60-1.10); GLUCOSE 185 MG/DL (70-104); LIPASE 111 U/L (16-77); MAGNESIUM 2.5 MG/DL (1.5-2.4); POTASSIUM 3.7 MMOL/L (3.5-5.1); SODIUM 145 MMOL/L (135-145); TOTAL PROTEIN 5.4 G/DL (6.4-8.2); eCRCL 203 ML/MIN; eGFR > 90 ML/MIN
[2024-08-23 03:49] LABS: TOTAL CELLS COUNTED 100
[2024-08-23 05:16] LABS: ABG HCO3 33.1 mmol/L (21.0-28.0); ABG OXYGEN SATURATION 95.9 % (94.0-98.0); ABG PCO2 (T) 53.9 mmHg (35.0-48.0); ABG PH (T) 7.404 (7.350-7.450); ABG PO2 (T) 74.8 mmHg (83.0-108.0); ALLEN'S TEST POSITIVE; FCOHb 0.1 % (0.5-1.5); FHHb 4.1 % (0.0-5.0); FMetHb 0.3 % (0.0-1.5); FO2Hb 95.5 % (94.0-98.0); MODE MASK - BIPAP; PATIENT TEMPERATURE 36.6; RESPIRATORY RATE 12 b/min; TIDAL VOLUME 546 mL; TOTAL HEMOGLOBIN 10.6 G/dl (13.5-17.5)
[2024-08-23] MEDS: thiamine 100mg tablet NG SCH (07:26)
[2024-08-23] MEDS ORDERED: sodium phosphate inj. 30 MMOL in normal saline 250ml IV soln 250 ML IV PRN (08:31)
[2024-08-23] MEDS: mineral oil 133ml enema RC ONE (08:56)
[2024-08-23] MEDS: LidoCAINE 2% Topical Jelly 11mL syringe (UROJET) TOP ONE (09:20)
[2024-08-23] MEDS: sodium phosphate inj. 15 MMOL in normal saline 250ml IV soln 250 ML IV PRN (14:35)
[2024-08-24] VITALS (31 sets, daily range): BP systolic 105–179; BP diastolic 47–109; PULSE 85–125; RESP 17–29; O2SAT 89–97
[2024-08-24 05:59] LABS: BASOPHILS # (AUTO) 0.1 X10'3 (0-0.2); EOSINOPHILS # (AUTO) 0.2 X10'3 (0-0.9); MEAN CORPUSCULAR VOLUME 99.5 FL (78-98)
[2024-08-24 06:03] LABS: BASOPHILS % (AUTO) 0.3 % (0-1); EOSINOPHILS % (AUTO) 0.8 % (0-6); HEMATOCRIT 32.2 % (42.0-52.0); HEMOGLOBIN 10.5 g/dl (14.0-17.9); LYMPHOCYTES # (AUTO) 0.8 X10'3 (1.1-4.8); MEAN CORPUSCULAR HEMOGLOBIN 32.5 PG (27.0-31.0); MEAN CORPUSCULAR HGB CONC 32.7 g/dL (33.0-36.5); MEAN PLATELET VOLUME 9.3 FL (7.4-10.4); MONOCYTES # (AUTO) 1.7 X10'3 (0-0.9); MONOCYTES % (AUTO) 8.5 % (2-12); NEUTROPHILS # (AUTO) 17.6 X10'3 (1.8-7.7); NEUTROPHILS % (AUTO) 86.4 % (42-75); PLATELET COUNT 535 X10'3 (140-440); RED BLOOD COUNT 3.24 X10'6 (4.70-6.10); RED CELL DISTRIBUTION WIDTH 15.1 % (11.5-14.5); WHITE BLOOD COUNT 20.4 X10'3 (4.5-11.0)
[2024-08-24 06:42] LABS: ALANINE AMINOTRANSFERASE 30 U/L (12-78); ALBUMIN 1.5 G/DL (3.4-5.0); ALBUMIN/GLOBULIN RATIO 0.3 (1.1-1.5); ALKALINE PHOSPHATASE 73 IU/L (46-116); ANION GAP 4 (8-16); ASPARTATE AMINO TRANSFERASE 44 U/L (10-37); BILIRUBIN,TOTAL 0.3 MG/DL (0.1-1.0); BLOOD UREA NITROGEN 7 MG/DL (7-18); BUN/CREATININE RATIO 13.2 (10.0-20.0); CALCIUM 8.5 MG/DL (8.5-10.1); CHLORIDE 104 MMOL/L (99-107); CREATININE 0.53 MG/DL (0.60-1.10); GLUCOSE 93 MG/DL (70-104); LIPASE 80 U/L (16-77); MAGNESIUM 2.7 MG/DL (1.5-2.4); PHOSPHORUS 1.6 MG/DL (2.3-4.5); POTASSIUM 3.3 MMOL/L (3.5-5.1); SODIUM 147 MMOL/L (135-145); TOTAL CARBON DIOXIDE 38.8 MMOL/L (24-32); eCRCL 195 ML/MIN; eGFR > 90 ML/MIN
[2024-08-24 19:41] LABS: ALBUMIN 1.3 G/DL (3.4-5.0); ANION GAP 2 (8-16); BLOOD UREA NITROGEN 6 MG/DL (7-18); CHLORIDE 101 MMOL/L (99-107); GLUCOSE 162 MG/DL (70-104); MAGNESIUM 2.3 MG/DL (1.5-2.4); PHOSPHORUS 2.2 MG/DL (2.3-4.5); POTASSIUM 3.2 MMOL/L (3.5-5.1); SODIUM 142 MMOL/L (135-145); TOTAL CARBON DIOXIDE 39.4 MMOL/L (24-32); eCRCL 207 ML/MIN; eGFR > 90 ML/MIN
[2024-08-25] VITALS (30 sets, daily range): BP systolic 109–208; BP diastolic 56–109; PULSE 81–135; RESP 20–40; O2SAT 91–95
[2024-08-25 05:38] LABS: BASOPHILS # (AUTO) 0.1 X10'3 (0-0.2); WHITE BLOOD COUNT 21.5 X10'3 (4.5-11.0)
[2024-08-25 05:41] LABS: BASOPHILS % (AUTO) 0.5 % (0-1); EOSINOPHILS # (AUTO) 0.1 X10'3 (0-0.9); EOSINOPHILS % (AUTO) 0.6 % (0-6); HEMATOCRIT 28.9 % (42.0-52.0); HEMOGLOBIN 9.4 g/dl (14.0-17.9); LYMPHOCYTES # (AUTO) 0.9 X10'3 (1.1-4.8); LYMPHOCYTES % (AUTO) 4.4 % (21-51); MEAN CORPUSCULAR HEMOGLOBIN 31.7 PG (27.0-31.0); MEAN CORPUSCULAR HGB CONC 32.5 g/dL (33.0-36.5); MEAN CORPUSCULAR VOLUME 97.7 FL (78-98); MEAN PLATELET VOLUME 8.6 FL (7.4-10.4); MONOCYTES # (AUTO) 1.9 X10'3 (0-0.9); MONOCYTES % (AUTO) 9.1 % (2-12); NEUTROPHILS # (AUTO) 18.3 X10'3 (1.8-7.7); NEUTROPHILS % (AUTO) 85.4 % (42-75); PLATELET COUNT 625 X10'3 (140-440); RED BLOOD COUNT 2.95 X10'6 (4.70-6.10); RED CELL DISTRIBUTION WIDTH 14.7 % (11.5-14.5)
[2024-08-25 06:11] LABS: ALANINE AMINOTRANSFERASE 27 U/L (12-78); ALBUMIN 1.3 G/DL (3.4-5.0); ALBUMIN/GLOBULIN RATIO 0.3 (1.1-1.5); ALKALINE PHOSPHATASE 58 IU/L (46-116); ANION GAP 2 (8-16); ASPARTATE AMINO TRANSFERASE 38 U/L (10-37); BILIRUBIN,TOTAL 0.3 MG/DL (0.1-1.0); BLOOD UREA NITROGEN 6 MG/DL (7-18); CALCIUM 8.1 MG/DL (8.5-10.1); CHLORIDE 101 MMOL/L (99-107); GLUCOSE 103 MG/DL (70-104); LIPASE 77 U/L (16-77); MAGNESIUM 2.2 MG/DL (1.5-2.4); PHOSPHORUS 2.6 MG/DL (2.3-4.5); SODIUM 143 MMOL/L (135-145); TOTAL CARBON DIOXIDE 39.7 MMOL/L (24-32); TOTAL PROTEIN 5.5 G/DL (6.4-8.2); eCRCL 173 ML/MIN; eGFR > 90 ML/MIN
[2024-08-25 06:21] LABS: PLATELET ESTIMATE INCREASED; TOTAL CELLS COUNTED 100
[2024-08-25 06:22] LABS: STOMATOCYTES 2+
[2024-08-25] MEDS: lactulose 20gm/30ml cup NG SCH (09:15)
[2024-08-26] VITALS (30 sets, daily range): BP systolic 115–181; BP diastolic 53–106; PULSE 75–121; RESP 16–44; O2SAT 88–96
[2024-08-26 08:16] LABS: ALANINE AMINOTRANSFERASE 21 U/L (12-78); ALBUMIN 1.3 G/DL (3.4-5.0); ALBUMIN/GLOBULIN RATIO 0.3 (1.1-1.5); ALKALINE PHOSPHATASE 54 IU/L (46-116); ANION GAP 9 (8-16); ASPARTATE AMINO TRANSFERASE 38 U/L (10-37); BILIRUBIN,TOTAL 0.2 MG/DL (0.1-1.0); BLOOD UREA NITROGEN 5 MG/DL (7-18); BUN/CREATININE RATIO 11.4 (10.0-20.0); CALCIUM 8.3 MG/DL (8.5-10.1); CHLORIDE 102 MMOL/L (99-107); CREATININE 0.44 MG/DL (0.60-1.10); GLUCOSE 101 MG/DL (70-104); LIPASE 64 U/L (16-77); MAGNESIUM 2.2 MG/DL (1.5-2.4); PHOSPHORUS 3.7 MG/DL (2.3-4.5); POTASSIUM 3.6 MMOL/L (3.5-5.1); PREALBUMIN 8.1 MG/DL (19-36); SODIUM 145 MMOL/L (135-145); TOTAL CARBON DIOXIDE 34.2 MMOL/L (24-32); TOTAL PROTEIN 5.4 G/DL (6.4-8.2); eCRCL 235 ML/MIN; eGFR > 90 ML/MIN
[2024-08-26] MEDS: FENTANYL 1000MCG/NS 100 ML BAG /PF IV SCH (12:10)
[2024-08-26] MEDS: propofol 1000mg/100ml bottle 100 ML IV SCH (12:10)
[2024-08-26 16:53] LABS: ABG BASE EXCESS 13.1 mmol/L (-2.0-3.0); ABG HCO3 39.2 mmol/L (21.0-28.0); ABG OXYGEN SATURATION 94.1 % (94.0-98.0); ABG PCO2 (T) 61.7 mmHg (35.0-48.0); ABG PH (T) 7.424 (7.350-7.450); ABG PO2 (T) 75.7 mmHg (83.0-108.0); ALLEN'S TEST POSITIVE; FCOHb 0.3 % (0.5-1.5); FHHb 5.9 % (0.0-5.0); FLOW 50 L/min; FMetHb 0.3 % (0.0-1.5); FO2Hb 93.5 % (94.0-98.0); MODE HIGH FLOW; PATIENT TEMPERATURE 37.8
[2024-08-26 17:23] LABS: MEAN CORPUSCULAR HEMOGLOBIN 32.6 PG (27.0-31.0); RED CELL DISTRIBUTION WIDTH 14.8 % (11.5-14.5)
[2024-08-26 17:26] LABS: HEMATOCRIT 28.8 % (42.0-52.0); HEMOGLOBIN 9.5 g/dl (14.0-17.9); MEAN CORPUSCULAR HGB CONC 33.1 g/dL (33.0-36.5); MEAN CORPUSCULAR VOLUME 98.6 FL (78-98); MEAN PLATELET VOLUME 8.3 FL (7.4-10.4); PLATELET COUNT 638 X10'3 (140-440); RED BLOOD COUNT 2.92 X10'6 (4.70-6.10); WHITE BLOOD COUNT 22.3 X10'3 (4.5-11.0)
[2024-08-26 18:11] LABS: NUCLEATED RED BLOOD CELLS 1 /100WBC (0-0); PLATELET ESTIMATE INCREASED; TOTAL CELLS COUNTED 100
[2024-08-26 18:13] LABS: STOMATOCYTES 1+
[2024-08-26] MEDS: furosemide 20 MG/2 ML vial IV ONE (23:00)
[2024-08-27] VITALS (35 sets, daily range): BP systolic 95–165; BP diastolic 48–94; PULSE 73–114; RESP 22–42; O2SAT 80–97
[2024-08-27 04:14] LABS: EOSINOPHILS # (AUTO) 0.2 X10'3 (0-0.9); HEMOGLOBIN 9.5 g/dl (14.0-17.9)
[2024-08-27 04:15] LABS: BASOPHILS # (AUTO) 0.1 X10'3 (0-0.2); BASOPHILS % (AUTO) 0.4 % (0-1); HEMATOCRIT 29.2 % (42.0-52.0); LYMPHOCYTES # (AUTO) 0.8 X10'3 (1.1-4.8); LYMPHOCYTES % (AUTO) 3.9 % (21-51); MEAN CORPUSCULAR HGB CONC 32.5 g/dL (33.0-36.5); MEAN CORPUSCULAR VOLUME 98.4 FL (78-98); MEAN PLATELET VOLUME 7.7 FL (7.4-10.4); MONOCYTES # (AUTO) 1.2 X10'3 (0-0.9); MONOCYTES % (AUTO) 5.8 % (2-12); NEUTROPHILS # (AUTO) 17.9 X10'3 (1.8-7.7); NEUTROPHILS % (AUTO) 88.9 % (42-75); PLATELET COUNT 849 X10'3 (140-440); RED BLOOD COUNT 2.97 X10'6 (4.70-6.10); RED CELL DISTRIBUTION WIDTH 14.5 % (11.5-14.5); WHITE BLOOD COUNT 20.1 X10'3 (4.5-11.0)
[2024-08-27 04:35] LABS: ALANINE AMINOTRANSFERASE 18 U/L (12-78); ALBUMIN 1.2 G/DL (3.4-5.0); ALBUMIN/GLOBULIN RATIO 0.3 (1.1-1.5); ALKALINE PHOSPHATASE 52 IU/L (46-116); ANION GAP 1 (8-16); ASPARTATE AMINO TRANSFERASE 29 U/L (10-37); BILIRUBIN,TOTAL 0.2 MG/DL (0.1-1.0); BLOOD UREA NITROGEN 6 MG/DL (7-18); BUN/CREATININE RATIO 11.3 (10.0-20.0); CALCIUM 8.3 MG/DL (8.5-10.1); CHLORIDE 102 MMOL/L (99-107); CREATININE 0.53 MG/DL (0.60-1.10); LIPASE 70 U/L (16-77); MAGNESIUM 2.1 MG/DL (1.5-2.4); PHOSPHORUS 3.3 MG/DL (2.3-4.5); SODIUM 143 MMOL/L (135-145); TOTAL PROTEIN 5.5 G/DL (6.4-8.2); TRIGLYCERIDES 168 MG/DL (20-135); eCRCL 195 ML/MIN; eGFR > 90 ML/MIN
[2024-08-27 04:37] LABS: GLUCOSE 151 MG/DL (70-104)
[2024-08-27 04:38] LABS: TOTAL CELLS COUNTED 100
[2024-08-27 04:39] LABS: LARGE PLATELETS FEW
[2024-08-27 04:43] LABS: ABG BASE EXCESS 14.7 mmol/L (-2.0-3.0); ABG HCO3 42.6 mmol/L (21.0-28.0); ABG OXYGEN SATURATION 94.7 % (94.0-98.0); ABG PCO2 (T) 76.4 mmHg (35.0-48.0); ABG PH (T) 7.367 (7.350-7.450); ABG PO2 (T) 78.7 mmHg (83.0-108.0); ALLEN'S TEST Modified; FCOHb 0.1 % (0.5-1.5); FHHb 5.3 % (0.0-5.0); FLOW 50 L/min; FMetHb 0.3 % (0.0-1.5); FO2Hb 94.3 % (94.0-98.0); MODE high flow; PATIENT TEMPERATURE 37.5; TOTAL HEMOGLOBIN 10.6 G/dl (13.5-17.5)
[2024-08-27 04:44] LABS: TOTAL CARBON DIOXIDE 40.4 MMOL/L (24-32)
[2024-08-27] MEDS: POTASSIUM CHLORIDE 20 MEQ/15 ML oral solution NG PRN (05:20)
[2024-08-27] MEDS: furosemide 40mg/4ml inj IV ONE (07:55)
[2024-08-27] MEDS: nicotine 21mg patch - 24 hr TD SCH (09:16)
[2024-08-27] MEDS: rocuronium 10mg/ml inj IV ONE ×2 (11:47→13:03)
[2024-08-27] MEDS: midazolam 1 mg/ML 2ml injection IV ONE (11:47)
[2024-08-27] MEDS: etomidate 2mg/ml inj. IV ONE (11:48)
[2024-08-27] MEDS ORDERED: NORepinephrine 8mg/ 250ml NS 250 ML IV PRN (12:00)
[2024-08-27] MEDS: NORepinephrine 8mg/ 250ml NS 250 ML IV ONE (12:20)
[2024-08-27] MEDS: furosemide 20 MG/2 ML vial IV SCH (13:03)
[2024-08-27] MEDS: POTASSIUM CHLORIDE 20 MEQ/15 ML oral solution NG SCH (13:03)
[2024-08-27 13:13] LABS: ABG HCO3 36.8 mmol/L (21.0-28.0); ABG PCO2 (T) 72.4 mmHg (35.0-48.0); ABG PH (T) 7.327 (7.350-7.450); ABG PO2 (T) 70.4 mmHg (83.0-108.0); ALLEN'S TEST POSITIVE; FCOHb 0.3 % (0.5-1.5); FMetHb 0.3 % (0.0-1.5); FO2Hb 91.4 % (94.0-98.0); MODE VENT - VC+; PATIENT TEMPERATURE 37.7; PEEP 15 cm H2O; RESPIRATORY RATE 24 b/min; TIDAL VOLUME 270 mL; TOTAL HEMOGLOBIN 10.3 G/dl (13.5-17.5)
[2024-08-27] MEDS ORDERED: DEXTROSE 15 GM of carb/4 tabs (each vial/BOTTLE has 4 tablets) NG PRN ×2 (13:39)
[2024-08-27] MEDS: MEROPENEM 1GM/NS 50ML IVPB IV SCH (13:39)
[2024-08-27] MEDS: midazolam 100mg in NS 100ml 100 ML IV SCH (13:40)
[2024-08-27] MEDS: CIPROFLOXACIN 400MG/200ML premix IV SCH (13:40)
[2024-08-27] MEDS ORDERED: POTASSIUM CHLORIDE 20 MEQ/15 ML oral solution PO SCH (14:00)
[2024-08-27] MEDS ORDERED: furosemide 20 MG/2 ML vial IV SCH (14:00)
[2024-08-27] MEDS: acetaminophen 325mg/10.15ml oral unit dose solution NG PRN (16:47)
[2024-08-27 18:38] LABS: PHOSPHORUS 2.8 MG/DL (2.3-4.5); POTASSIUM 3.7 MMOL/L (3.5-5.1)
[2024-08-28] VITALS (34 sets, daily range): BP systolic 89–164; BP diastolic 42–91; PULSE 93–116; RESP 24–31; O2SAT 88–97
[2024-08-28 02:38] LABS: EOSINOPHILS # (AUTO) 0.3 X10'3 (0-0.9); EOSINOPHILS % (AUTO) 1.6 % (0-6); HEMOGLOBIN 8.6 g/dl (14.0-17.9); MEAN PLATELET VOLUME 7.8 FL (7.4-10.4); WHITE BLOOD COUNT 17.5 X10'3 (4.5-11.0)
[2024-08-28 02:40] LABS: BASOPHILS % (AUTO) 0.2 % (0-1); HEMATOCRIT 26.2 % (42.0-52.0); LYMPHOCYTES # (AUTO) 1.2 X10'3 (1.1-4.8); LYMPHOCYTES % (AUTO) 6.7 % (21-51); MEAN CORPUSCULAR HEMOGLOBIN 32.2 PG (27.0-31.0); MEAN CORPUSCULAR HGB CONC 32.8 g/dL (33.0-36.5); MEAN CORPUSCULAR VOLUME 98.4 FL (78-98); MONOCYTES # (AUTO) 0.8 X10'3 (0-0.9); MONOCYTES % (AUTO) 4.8 % (2-12); NEUTROPHILS # (AUTO) 15.2 X10'3 (1.8-7.7); NEUTROPHILS % (AUTO) 86.7 % (42-75); PLATELET COUNT 788 X10'3 (140-440); RED BLOOD COUNT 2.67 X10'6 (4.70-6.10); RED CELL DISTRIBUTION WIDTH 14.9 % (11.5-14.5)
[2024-08-28 02:53] LABS: ALANINE AMINOTRANSFERASE 13 U/L (12-78); ALBUMIN 1.1 G/DL (3.4-5.0); ALBUMIN/GLOBULIN RATIO 0.3 (1.1-1.5); ALKALINE PHOSPHATASE 55 IU/L (46-116); ANION GAP -1 (8-16); ASPARTATE AMINO TRANSFERASE 28 U/L (10-37); BILIRUBIN,TOTAL 0.2 MG/DL (0.1-1.0); BLOOD UREA NITROGEN 7 MG/DL (7-18); CALCIUM 8.4 MG/DL (8.5-10.1); CHLORIDE 103 MMOL/L (99-107); CREATININE 0.54 MG/DL (0.60-1.10); GLUCOSE 128 MG/DL (70-104); LIPASE 62 U/L (16-77); MAGNESIUM 1.9 MG/DL (1.5-2.4); POTASSIUM 3.9 MMOL/L (3.5-5.1); SODIUM 144 MMOL/L (135-145); TOTAL PROTEIN 5.2 G/DL (6.4-8.2); eCRCL 192 ML/MIN; eGFR > 90 ML/MIN
[2024-08-28 03:03] LABS: TOTAL CARBON DIOXIDE 41.8 MMOL/L (24-32)
[2024-08-28 04:24] LABS: ABG BASE EXCESS 10.7 mmol/L (-2.0-3.0); ABG HCO3 37.9 mmol/L (21.0-28.0); ABG OXYGEN SATURATION 96.5 % (94.0-98.0); ABG PCO2 (T) 72.2 mmHg (35.0-48.0); ABG PH (T) 7.344 (7.350-7.450); ABG PO2 (T) 95.9 mmHg (83.0-108.0); FCOHb 0.3 % (0.5-1.5); FHHb 3.5 % (0.0-5.0); FMetHb 0.3 % (0.0-1.5); FO2Hb 95.9 % (94.0-98.0); MODE AC VC; PATIENT TEMPERATURE 38.5; PEEP 15 cm H2O; RESPIRATORY RATE 22 b/min; TIDAL VOLUME 300 mL; TOTAL HEMOGLOBIN 9.6 G/dl (13.5-17.5)
[2024-08-28 07:52] LABS: C DIFF ANTIGEN POSITIVE (NEGATIVE); C DIFF SPECIMEN=DIARRHEA? ACCEPTABLE; C DIFFICILE TOXINS A&B POSITIVE (Neg)
[2024-08-28] MEDS ORDERED: vancomycin 125 MG/5 ML UD oral SOLN.RECON 5mL oral syringe (FIRVANQ) PO SCH ×2 (08:40→08:48)
[2024-08-28] MEDS ORDERED: metolazone 2.5mg tablet PO SCH (11:17)
[2024-08-28] MEDS ORDERED: mineral oil/petrolatum ophthal oint EACHEYE SCH (14:00)
[2024-08-28] MEDS: mineral oil/petrolatum ophthal oint EACHEYE SCH (14:39)
[2024-08-28] MEDS: vancomycin 125 MG/5 ML UD oral SOLN.RECON 5mL oral syringe (FIRVANQ) NG SCH (14:40)
[2024-08-28 16:13] LABS: ABG BASE EXCESS 11.2 mmol/L (-2.0-3.0); ABG HCO3 36.8 mmol/L (21.0-28.0); ABG OXYGEN SATURATION 95.1 % (94.0-98.0); ABG PCO2 (T) 58.5 mmHg (35.0-48.0); ABG PH (T) 7.422 (7.350-7.450); ABG PO2 (T) 81.1 mmHg (83.0-108.0); FCOHb 0.3 % (0.5-1.5); FHHb 4.9 % (0.0-5.0); FMetHb 0.3 % (0.0-1.5); FO2Hb 94.5 % (94.0-98.0); MODE VENT - AC; PATIENT TEMPERATURE 38.4; PEEP 15 cm H2O; RESPIRATORY RATE 28 b/min; TIDAL VOLUME 300 mL; TOTAL HEMOGLOBIN 9.3 G/dl (13.5-17.5)
[2024-08-28] MEDS: metolazone 2.5mg tablet NG SCH (20:32)
[2024-08-29] VITALS (37 sets, daily range): BP systolic 104–163; BP diastolic 45–69; PULSE 12–133; RESP 24–36; O2SAT 84–97
[2024-08-29 03:21] LABS: EOSINOPHILS # (AUTO) 0.3 X10'3 (0-0.9); MEAN CORPUSCULAR VOLUME 98.2 FL (78-98); NEUTROPHILS # (AUTO) 17.6 X10'3 (1.8-7.7); RED CELL DISTRIBUTION WIDTH 14.5 % (11.5-14.5)
[2024-08-29 03:23] LABS: BASOPHILS % (AUTO) 0.2 % (0-1); EOSINOPHILS % (AUTO) 1.5 % (0-6); HEMATOCRIT 26.5 % (42.0-52.0); HEMOGLOBIN 8.8 g/dl (14.0-17.9); LYMPHOCYTES # (AUTO) 1.1 X10'3 (1.1-4.8); LYMPHOCYTES % (AUTO) 5.7 % (21-51); MEAN CORPUSCULAR HEMOGLOBIN 32.4 PG (27.0-31.0); MEAN PLATELET VOLUME 7.9 FL (7.4-10.4); MONOCYTES # (AUTO) 1.1 X10'3 (0-0.9); MONOCYTES % (AUTO) 5.6 % (2-12); PLATELET COUNT 768 X10'3 (140-440); WHITE BLOOD COUNT 20.3 X10'3 (4.5-11.0)
[2024-08-29 03:24] LABS: ABG BASE EXCESS 12.7 mmol/L (-2.0-3.0); ABG HCO3 38.8 mmol/L (21.0-28.0); ABG OXYGEN SATURATION 96.3 % (94.0-98.0); ABG PCO2 (T) 60.2 mmHg (35.0-48.0); ABG PH (T) 7.428 (7.350-7.450); ABG PO2 (T) 82.9 mmHg (83.0-108.0); FCOHb 0.3 % (0.5-1.5); FHHb 3.7 % (0.0-5.0); FMetHb 0.3 % (0.0-1.5); FO2Hb 95.7 % (94.0-98.0); MODE ac vc; PATIENT TEMPERATURE 37.1; PEEP 15 cm H2O; RESPIRATORY RATE 28 b/min; TIDAL VOLUME 300 mL; TOTAL HEMOGLOBIN 9.4 G/dl (13.5-17.5)
[2024-08-29 03:30] LABS: ALANINE AMINOTRANSFERASE 20 U/L (12-78); ALBUMIN 1.2 G/DL (3.4-5.0); ALBUMIN/GLOBULIN RATIO 0.3 (1.1-1.5); ALKALINE PHOSPHATASE 60 IU/L (46-116); ASPARTATE AMINO TRANSFERASE 34 U/L (10-37); BILIRUBIN,TOTAL 0.2 MG/DL (0.1-1.0); BLOOD UREA NITROGEN 8 MG/DL (7-18); BUN/CREATININE RATIO 20.5 (10.0-20.0); CALCIUM 8.8 MG/DL (8.5-10.1); CHLORIDE 99 MMOL/L (99-107); CREATININE 0.39 MG/DL (0.60-1.10); GLUCOSE 132 MG/DL (70-104); LIPASE 84 U/L (16-77); PHOSPHORUS 3.6 MG/DL (2.3-4.5); POTASSIUM 4.1 MMOL/L (3.5-5.1); PREALBUMIN 7.4 MG/DL (19-36); SODIUM 143 MMOL/L (135-145); TOTAL PROTEIN 5.5 G/DL (6.4-8.2); TRIGLYCERIDES 168 MG/DL (20-135); eCRCL 266 ML/MIN; eGFR > 90 ML/MIN
[2024-08-29 03:33] LABS: ANION GAP -3 (8-16)
[2024-08-29 03:38] LABS: TOTAL CARBON DIOXIDE 47.4 MMOL/L (24-32)
[2024-08-29] MEDS: furosemide 40mg/4ml inj IV SCH (17:37)
[2024-08-29 19:04] LABS: BASOPHILS # (AUTO) 0.1 X10'3 (0-0.2); BASOPHILS % (AUTO) 0.6 % (0-1); EOSINOPHILS # (AUTO) 0.4 X10'3 (0-0.9); MEAN CORPUSCULAR HGB CONC 32.6 g/dL (33.0-36.5); MONOCYTES # (AUTO) 1.5 X10'3 (0-0.9)
[2024-08-29 19:06] LABS: EOSINOPHILS % (AUTO) 2.1 % (0-6); HEMATOCRIT 26.3 % (42.0-52.0); HEMOGLOBIN 8.6 g/dl (14.0-17.9); LYMPHOCYTES # (AUTO) 1.5 X10'3 (1.1-4.8); LYMPHOCYTES % (AUTO) 7.6 % (21-51); MEAN CORPUSCULAR HEMOGLOBIN 31.6 PG (27.0-31.0); MEAN CORPUSCULAR VOLUME 96.9 FL (78-98); MEAN PLATELET VOLUME 7.8 FL (7.4-10.4); MONOCYTES % (AUTO) 7.5 % (2-12); NEUTROPHILS # (AUTO) 16.4 X10'3 (1.8-7.7); NEUTROPHILS % (AUTO) 82.2 % (42-75); PLATELET COUNT 784 X10'3 (140-440); RED BLOOD COUNT 2.71 X10'6 (4.70-6.10); RED CELL DISTRIBUTION WIDTH 14.6 % (11.5-14.5); WHITE BLOOD COUNT 19.9 X10'3 (4.5-11.0)
[2024-08-29 19:19] LABS: ALANINE AMINOTRANSFERASE 21 U/L (12-78); ALBUMIN 1.2 G/DL (3.4-5.0); ALBUMIN/GLOBULIN RATIO 0.3 (1.1-1.5); ALKALINE PHOSPHATASE 62 IU/L (46-116); ASPARTATE AMINO TRANSFERASE 38 U/L (10-37); BILIRUBIN,TOTAL 0.2 MG/DL (0.1-1.0); BLOOD UREA NITROGEN 9 MG/DL (7-18); BUN/CREATININE RATIO 16.4 (10.0-20.0); CALCIUM 8.8 MG/DL (8.5-10.1); CHLORIDE 95 MMOL/L (99-107); CREATININE 0.55 MG/DL (0.60-1.10); GLUCOSE 159 MG/DL (70-104); MAGNESIUM 1.8 MG/DL (1.5-2.4); PHOSPHORUS 4.2 MG/DL (2.3-4.5); POTASSIUM 4.8 MMOL/L (3.5-5.1); SODIUM 140 MMOL/L (135-145); TOTAL PROTEIN 5.9 G/DL (6.4-8.2); eCRCL 188 ML/MIN; eGFR > 90 ML/MIN
[2024-08-29 19:20] LABS: ABG HCO3 42.6 mmol/L (21.0-28.0); ABG OXYGEN SATURATION 98.2 % (94.0-98.0); ABG PCO2 (T) 59.7 mmHg (35.0-48.0); ABG PH (T) 7.475 (7.350-7.450); ABG PO2 (T) 112.1 mmHg (83.0-108.0); FCOHb 0.3 % (0.5-1.5); FHHb 1.8 % (0.0-5.0); FMetHb 0.3 % (0.0-1.5); FO2Hb 97.6 % (94.0-98.0); MODE VENT - AC; PATIENT TEMPERATURE 38.1; PEEP 15 cm H2O; RESPIRATORY RATE 28 b/min; TIDAL VOLUME 300 mL
[2024-08-29 19:23] LABS: ANION GAP -3 (8-16)
[2024-08-29 19:51] LABS: TOTAL CARBON DIOXIDE 47.9 MMOL/L (24-32)
[2024-08-30] VITALS (35 sets, daily range): BP systolic 100–166; BP diastolic 42–77; PULSE 90–129; RESP 26–38; O2SAT 91–97
[2024-08-30 02:03] LABS: BASOPHILS # (AUTO) 0.1 X10'3 (0-0.2); BASOPHILS % (AUTO) 0.4 % (0-1); HEMOGLOBIN 8.6 g/dl (14.0-17.9); MEAN PLATELET VOLUME 7.8 FL (7.4-10.4); MONOCYTES # (AUTO) 1.3 X10'3 (0-0.9); WHITE BLOOD COUNT 18.9 X10'3 (4.5-11.0)
[2024-08-30 02:06] LABS: EOSINOPHILS # (AUTO) 0.4 X10'3 (0-0.9); HEMATOCRIT 25.8 % (42.0-52.0); LYMPHOCYTES # (AUTO) 1.4 X10'3 (1.1-4.8); LYMPHOCYTES % (AUTO) 7.7 % (21-51); MEAN CORPUSCULAR HEMOGLOBIN 32.1 PG (27.0-31.0); MEAN CORPUSCULAR HGB CONC 33.4 g/dL (33.0-36.5); MEAN CORPUSCULAR VOLUME 96.2 FL (78-98); MONOCYTES % (AUTO) 6.9 % (2-12); NEUTROPHILS # (AUTO) 15.7 X10'3 (1.8-7.7); PLATELET COUNT 799 X10'3 (140-440); RED BLOOD COUNT 2.68 X10'6 (4.70-6.10); RED CELL DISTRIBUTION WIDTH 14.5 % (11.5-14.5)
[2024-08-30 02:29] LABS: ALANINE AMINOTRANSFERASE 25 U/L (12-78); ALBUMIN 1.3 G/DL (3.4-5.0); ALBUMIN/GLOBULIN RATIO 0.3 (1.1-1.5); ALKALINE PHOSPHATASE 70 IU/L (46-116); ASPARTATE AMINO TRANSFERASE 42 U/L (10-37); BILIRUBIN,TOTAL 0.2 MG/DL (0.1-1.0); BLOOD UREA NITROGEN 9 MG/DL (7-18); BUN/CREATININE RATIO 20.5 (10.0-20.0); CALCIUM 9.1 MG/DL (8.5-10.1); CHLORIDE 95 MMOL/L (99-107); CREATININE 0.44 MG/DL (0.60-1.10); GLUCOSE 141 MG/DL (70-104); LIPASE 85 U/L (16-77); PHOSPHORUS 4.9 MG/DL (2.3-4.5); POTASSIUM 4.3 MMOL/L (3.5-5.1); SODIUM 140 MMOL/L (135-145); TOTAL PROTEIN 6.1 G/DL (6.4-8.2); eCRCL 235 ML/MIN; eGFR > 90 ML/MIN
[2024-08-30 02:30] LABS: ANION GAP -3 (8-16)
[2024-08-30 02:35] LABS: TOTAL CELLS COUNTED 100
[2024-08-30 02:45] LABS: TOTAL CARBON DIOXIDE 48.4 MMOL/L (24-32)
[2024-08-30 03:39] LABS: ABG BASE EXCESS 21.5 mmol/L (-2.0-3.0); ABG HCO3 47.9 mmol/L (21.0-28.0); ABG OXYGEN SATURATION 99.4 % (94.0-98.0); ABG PCO2 (T) 69.1 mmHg (35.0-48.0); ABG PH (T) 7.464 (7.350-7.450); ABG PO2 (T) 148.4 mmHg (83.0-108.0); FHHb 0.6 % (0.0-5.0); FMetHb 0.3 % (0.0-1.5); FO2Hb 99.1 % (94.0-98.0); MODE VENT - AC; PATIENT TEMPERATURE 38.4; PEEP 15 cm H2O; RESPIRATORY RATE 28 b/min; TIDAL VOLUME 300 mL; TOTAL HEMOGLOBIN 9.9 G/dl (13.5-17.5)
[2024-08-30] MEDS: fentaNYL 2,500 MCG in Normal Saline 250ml IV soln bag IV SCH (22:34)
[2024-08-31] VITALS (36 sets, daily range): BP systolic 97–173; BP diastolic 45–82; PULSE 101–123; RESP 26–30; O2SAT 89–98
[2024-08-31 03:04] LABS: EOSINOPHILS # (AUTO) 0.3 X10'3 (0-0.9); EOSINOPHILS % (AUTO) 1.8 % (0-6); HEMOGLOBIN 8.6 g/dl (14.0-17.9); MEAN PLATELET VOLUME 7.7 FL (7.4-10.4); MONOCYTES # (AUTO) 1.5 X10'3 (0-0.9); MONOCYTES % (AUTO) 8.9 % (2-12)
[2024-08-31 03:05] LABS: BASOPHILS % (AUTO) 0.3 % (0-1); HEMATOCRIT 25.6 % (42.0-52.0); LYMPHOCYTES # (AUTO) 1.4 X10'3 (1.1-4.8); LYMPHOCYTES % (AUTO) 8.1 % (21-51); MEAN CORPUSCULAR HEMOGLOBIN 32.1 PG (27.0-31.0); MEAN CORPUSCULAR HGB CONC 33.7 g/dL (33.0-36.5); MEAN CORPUSCULAR VOLUME 95.2 FL (78-98); NEUTROPHILS # (AUTO) 13.6 X10'3 (1.8-7.7); NEUTROPHILS % (AUTO) 80.9 % (42-75); PLATELET COUNT 806 X10'3 (140-440); RED BLOOD COUNT 2.69 X10'6 (4.70-6.10); RED CELL DISTRIBUTION WIDTH 14.6 % (11.5-14.5); WHITE BLOOD COUNT 16.8 X10'3 (4.5-11.0)
[2024-08-31 03:12] LABS: ALANINE AMINOTRANSFERASE 19 U/L (12-78); ALBUMIN 1.2 G/DL (3.4-5.0); ALBUMIN/GLOBULIN RATIO 0.2 (1.1-1.5); ALKALINE PHOSPHATASE 89 IU/L (46-116); ASPARTATE AMINO TRANSFERASE 55 U/L (10-37); BILIRUBIN,TOTAL 0.3 MG/DL (0.1-1.0); BLOOD UREA NITROGEN 12 MG/DL (7-18); BUN/CREATININE RATIO 20.7 (10.0-20.0); CHLORIDE 92 MMOL/L (99-107); CREATININE 0.58 MG/DL (0.60-1.10); GLUCOSE 148 MG/DL (70-104); LIPASE 101 U/L (16-77); MAGNESIUM 1.7 MG/DL (1.5-2.4); PHOSPHORUS 3.7 MG/DL (2.3-4.5); POTASSIUM 3.5 MMOL/L (3.5-5.1); SODIUM 139 MMOL/L (135-145); TOTAL PROTEIN 6.3 G/DL (6.4-8.2); eCRCL 179 ML/MIN; eGFR > 90 ML/MIN
[2024-08-31 03:15] LABS: ANION GAP 1 (8-16)
[2024-08-31 03:30] LABS: ABG BASE EXCESS 20.8 mmol/L (-2.0-3.0); ABG HCO3 46.5 mmol/L (21.0-28.0); ABG OXYGEN SATURATION 98.6 % (94.0-98.0); ABG PCO2 (T) 64.6 mmHg (35.0-48.0); ABG PH (T) 7.481 (7.350-7.450); ABG PO2 (T) 125.3 mmHg (83.0-108.0); FCOHb 0.3 % (0.5-1.5); FHHb 1.4 % (0.0-5.0); FMetHb 0.3 % (0.0-1.5); MODE VC+; PATIENT TEMPERATURE 38.6; PEEP 15 cm H2O; RESPIRATORY RATE 28 b/min; TIDAL VOLUME 300 mL; TOTAL HEMOGLOBIN 9.6 G/dl (13.5-17.5)
[2024-08-31 03:30] LABS: TOTAL CARBON DIOXIDE 45.7 MMOL/L (24-32)
[2024-08-31] MEDS ORDERED: rocuronium 10mg/ml inj IV ONE (08:00)
[2024-08-31 22:01] LABS: ABG BASE EXCESS 21.1 mmol/L (-2.0-3.0); ABG HCO3 46.5 mmol/L (21.0-28.0); ABG OXYGEN SATURATION 97.6 % (94.0-98.0); ABG PCO2 (T) 62.2 mmHg (35.0-48.0); ABG PH (T) 7.498 (7.350-7.450); ABG PO2 (T) 100.5 mmHg (83.0-108.0); FHHb 2.4 % (0.0-5.0); FMetHb 0.3 % (0.0-1.5); FO2Hb 97.3 % (94.0-98.0); MODE VC+; PATIENT TEMPERATURE 38.7; PEEP 15 cm H2O; RESPIRATORY RATE 28 b/min; TIDAL VOLUME 300 mL; TOTAL HEMOGLOBIN 9.2 G/dl (13.5-17.5)
[2024-09-01] VITALS (35 sets, daily range): BP systolic 90–160; BP diastolic 47–85; PULSE 87–132; RESP 22–31; O2SAT 90–98
[2024-09-01 03:39] LABS: EOSINOPHILS # (AUTO) 0.3 X10'3 (0-0.9); HEMOGLOBIN 8.6 g/dl (14.0-17.9); LYMPHOCYTES # (AUTO) 1.7 X10'3 (1.1-4.8); MONOCYTES # (AUTO) 1.5 X10'3 (0-0.9)
[2024-09-01 03:41] LABS: BASOPHILS % (AUTO) 0.3 % (0-1); HEMATOCRIT 25.3 % (42.0-52.0); MEAN CORPUSCULAR HEMOGLOBIN 32.4 PG (27.0-31.0); MEAN CORPUSCULAR VOLUME 95.4 FL (78-98); MEAN PLATELET VOLUME 7.5 FL (7.4-10.4); MONOCYTES % (AUTO) 10.6 % (2-12); NEUTROPHILS # (AUTO) 10.7 X10'3 (1.8-7.7); NEUTROPHILS % (AUTO) 75.1 % (42-75); PLATELET COUNT 813 X10'3 (140-440); RED BLOOD COUNT 2.65 X10'6 (4.70-6.10); RED CELL DISTRIBUTION WIDTH 14.3 % (11.5-14.5); WHITE BLOOD COUNT 14.2 X10'3 (4.5-11.0)
[2024-09-01 04:00] LABS: ABG HCO3 41.6 mmol/L (21.0-28.0); ABG OXYGEN SATURATION 97.5 % (94.0-98.0); ABG PCO2 (T) 54.4 mmHg (35.0-48.0); ABG PH (T) 7.507 (7.350-7.450); ABG PO2 (T) 100.5 mmHg (83.0-108.0); FCOHb 0.1 % (0.5-1.5); FHHb 2.5 % (0.0-5.0); FMetHb 0.3 % (0.0-1.5); FO2Hb 97.1 % (94.0-98.0); MODE VC+; PATIENT TEMPERATURE 38.5; PEEP 15 cm H2O; RESPIRATORY RATE 28 b/min; TIDAL VOLUME 300 mL; TOTAL HEMOGLOBIN 9.3 G/dl (13.5-17.5)
[2024-09-01 04:04] LABS: ALANINE AMINOTRANSFERASE 40 U/L (12-78); ALBUMIN 1.3 G/DL (3.4-5.0); ALBUMIN/GLOBULIN RATIO 0.2 (1.1-1.5); ALKALINE PHOSPHATASE 103 IU/L (46-116); ANION GAP 2 (8-16); ASPARTATE AMINO TRANSFERASE 67 U/L (10-37); BILIRUBIN,TOTAL 0.2 MG/DL (0.1-1.0); BLOOD UREA NITROGEN 15 MG/DL (7-18); BUN/CREATININE RATIO 23.4 (10.0-20.0); CALCIUM 9.2 MG/DL (8.5-10.1); CHLORIDE 92 MMOL/L (99-107); CREATININE 0.64 MG/DL (0.60-1.10); GLUCOSE 180 MG/DL (70-104); LIPASE 113 U/L (16-77); MAGNESIUM 1.6 MG/DL (1.5-2.4); PHOSPHORUS 3.3 MG/DL (2.3-4.5); POTASSIUM 3.6 MMOL/L (3.5-5.1); SODIUM 137 MMOL/L (135-145); TOTAL PROTEIN 6.8 G/DL (6.4-8.2); TRIGLYCERIDES 249 MG/DL (20-135); eCRCL 162 ML/MIN; eGFR > 90 ML/MIN
[2024-09-01 04:22] LABS: TOTAL CARBON DIOXIDE 43.3 MMOL/L (24-32)
[2024-09-01] MEDS: fentaNYL 2,500 MCG in Normal Saline 250ml IV soln bag IV SCH (04:40)
[2024-09-02] VITALS (33 sets, daily range): BP systolic 93–161; BP diastolic 50–76; PULSE 96–128; RESP 28–33; O2SAT 90–97
[2024-09-02 03:18] LABS: ABG BASE EXCESS 21.5 mmol/L (-2.0-3.0); ABG HCO3 47.1 mmol/L (21.0-28.0); ABG OXYGEN SATURATION 83.9 % (94.0-98.0); ABG PCO2 (T) 62.3 mmHg (35.0-48.0); ABG PO2 (T) 51.2 mmHg (83.0-108.0); FCOHb 0.5 % (0.5-1.5); FMetHb 0.3 % (0.0-1.5); FO2Hb 83.2 % (94.0-98.0); MODE ac vc +; PATIENT TEMPERATURE 38.2; PEEP 11 cm H2O; RESPIRATORY RATE 28 b/min; TIDAL VOLUME 300 mL; TOTAL HEMOGLOBIN 9.5 G/dl (13.5-17.5)
[2024-09-02 05:14] LABS: BASOPHILS # (AUTO) 0.1 X10'3 (0-0.2); BASOPHILS % (AUTO) 0.4 % (0-1); EOSINOPHILS # (AUTO) 0.4 X10'3 (0-0.9); EOSINOPHILS % (AUTO) 2.3 % (0-6); HEMATOCRIT 24.9 % (42.0-52.0); HEMOGLOBIN 8.3 g/dl (14.0-17.9); LYMPHOCYTES # (AUTO) 2.2 X10'3 (1.1-4.8); LYMPHOCYTES % (AUTO) 13.4 % (21-51); MEAN CORPUSCULAR HEMOGLOBIN 31.4 PG (27.0-31.0); MEAN CORPUSCULAR HGB CONC 33.2 g/dL (33.0-36.5); MEAN CORPUSCULAR VOLUME 94.5 FL (78-98); MEAN PLATELET VOLUME 7.6 FL (7.4-10.4); MONOCYTES # (AUTO) 2.2 X10'3 (0-0.9); MONOCYTES % (AUTO) 13.1 % (2-12); NEUTROPHILS # (AUTO) 11.7 X10'3 (1.8-7.7); NEUTROPHILS % (AUTO) 70.8 % (42-75); PLATELET COUNT 760 X10'3 (140-440); RED BLOOD COUNT 2.63 X10'6 (4.70-6.10); RED CELL DISTRIBUTION WIDTH 14.5 % (11.5-14.5); WHITE BLOOD COUNT 16.5 X10'3 (4.5-11.0)
[2024-09-02 05:29] LABS: ALANINE AMINOTRANSFERASE 42 U/L (12-78); ALBUMIN 1.4 G/DL (3.4-5.0); ALBUMIN/GLOBULIN RATIO 0.3 (1.1-1.5); ALKALINE PHOSPHATASE 91 IU/L (46-116); ANION GAP 3 (8-16); ASPARTATE AMINO TRANSFERASE 57 U/L (10-37); BILIRUBIN,TOTAL 0.3 MG/DL (0.1-1.0); BLOOD UREA NITROGEN 16 MG/DL (7-18); BUN/CREATININE RATIO 30.8 (10.0-20.0); CALCIUM 8.9 MG/DL (8.5-10.1); CHLORIDE 93 MMOL/L (99-107); CREATININE 0.52 MG/DL (0.60-1.10); GLUCOSE 123 MG/DL (70-104); LIPASE 108 U/L (16-77); MAGNESIUM 1.7 MG/DL (1.5-2.4); PHOSPHORUS 4.5 MG/DL (2.3-4.5); POTASSIUM 3.4 MMOL/L (3.5-5.1); PREALBUMIN 11.3 MG/DL (19-36); SODIUM 140 MMOL/L (135-145); TOTAL PROTEIN 6.5 G/DL (6.4-8.2); eCRCL 199 ML/MIN; eGFR > 90 ML/MIN
[2024-09-02 11:47] LABS: ABG BASE EXCESS 19.2 mmol/L (-2.0-3.0); ABG HCO3 43.6 mmol/L (21.0-28.0); ABG OXYGEN SATURATION 95.9 % (94.0-98.0); ABG PCO2 (T) 51.7 mmHg (35.0-48.0); ABG PH (T) 7.545 (7.350-7.450); ABG PO2 (T) 75.5 mmHg (83.0-108.0); FCOHb 0.2 % (0.5-1.5); FHHb 4.1 % (0.0-5.0); FMetHb 0.3 % (0.0-1.5); FO2Hb 95.4 % (94.0-98.0); MODE VENT - VC+; PATIENT TEMPERATURE 37.5; PEEP 13 cm H2O; RESPIRATORY RATE 28 b/min; TIDAL VOLUME 300 mL; TOTAL HEMOGLOBIN 8.6 G/dl (13.5-17.5)
[2024-09-02] MEDS: magnesium sulf-water 2g/50mL 50 ML IV ONE (12:31)
[2024-09-02] MEDS: lactobacillus rhamnosus 10,000 MMU CELLS/CAPSULE PO SCH (12:31)
[2024-09-02] MEDS: metolazone 2.5mg tablet NG SCH (21:29)
[2024-09-03] VITALS (34 sets, daily range): BP systolic 93–154; BP diastolic 47–75; PULSE 91–120; RESP 22–35; O2SAT 90–96
[2024-09-03] MEDS ORDERED: albumin (Human) 5% 250ml 250 ML IV ONE ×4 (01:10)
[2024-09-03 02:21] LABS: BASOPHILS # (AUTO) 0.1 X10'3 (0-0.2); LYMPHOCYTES # (AUTO) 1.8 X10'3 (1.1-4.8); MEAN PLATELET VOLUME 7.6 FL (7.4-10.4)
[2024-09-03 02:22] LABS: BASOPHILS % (AUTO) 0.7 % (0-1); EOSINOPHILS # (AUTO) 0.4 X10'3 (0-0.9); EOSINOPHILS % (AUTO) 2.6 % (0-6); HEMOGLOBIN 7.8 g/dl (14.0-17.9); LYMPHOCYTES % (AUTO) 11.3 % (21-51); MEAN CORPUSCULAR HEMOGLOBIN 31.7 PG (27.0-31.0); MEAN CORPUSCULAR HGB CONC 33.8 g/dL (33.0-36.5); MEAN CORPUSCULAR VOLUME 93.7 FL (78-98); MONOCYTES # (AUTO) 1.9 X10'3 (0-0.9); MONOCYTES % (AUTO) 11.6 % (2-12); NEUTROPHILS % (AUTO) 73.8 % (42-75); PLATELET COUNT 753 X10'3 (140-440); RED BLOOD COUNT 2.46 X10'6 (4.70-6.10); WHITE BLOOD COUNT 16.2 X10'3 (4.5-11.0)
[2024-09-03 02:37] LABS: ALANINE AMINOTRANSFERASE 39 U/L (12-78); ALBUMIN 1.4 G/DL (3.4-5.0); ALBUMIN/GLOBULIN RATIO 0.3 (1.1-1.5); ALKALINE PHOSPHATASE 81 IU/L (46-116); ANION GAP 3 (8-16); ASPARTATE AMINO TRANSFERASE 47 U/L (10-37); BILIRUBIN,TOTAL 0.4 MG/DL (0.1-1.0); BLOOD UREA NITROGEN 16 MG/DL (7-18); BUN/CREATININE RATIO 32.7 (10.0-20.0); CALCIUM 8.6 MG/DL (8.5-10.1); CHLORIDE 94 MMOL/L (99-107); CREATININE 0.49 MG/DL (0.60-1.10); GLUCOSE 136 MG/DL (70-104); LIPASE 119 U/L (16-77); MAGNESIUM 1.9 MG/DL (1.5-2.4); PHOSPHORUS 4.1 MG/DL (2.3-4.5); POTASSIUM 3.1 MMOL/L (3.5-5.1); SODIUM 138 MMOL/L (135-145); TOTAL PROTEIN 6.4 G/DL (6.4-8.2); TRIGLYCERIDES 215 MG/DL (20-135); eCRCL 211 ML/MIN; eGFR > 90 ML/MIN
[2024-09-03 02:39] LABS: TOTAL CELLS COUNTED 100
[2024-09-03 02:43] LABS: TOTAL CARBON DIOXIDE 41.4 MMOL/L (24-32)
[2024-09-03 03:21] LABS: ABG BASE EXCESS 18.4 mmol/L (-2.0-3.0); ABG HCO3 43.4 mmol/L (21.0-28.0); ABG OXYGEN SATURATION 94.3 % (94.0-98.0); ABG PCO2 (T) 57.4 mmHg (35.0-48.0); ABG PH (T) 7.501 (7.350-7.450); ABG PO2 (T) 74.9 mmHg (83.0-108.0); FCOHb 0.3 % (0.5-1.5); FHHb 5.7 % (0.0-5.0); FMetHb 0.3 % (0.0-1.5); FO2Hb 93.7 % (94.0-98.0); MODE PRVC; PATIENT TEMPERATURE 38.3; PEEP 13 cm H2O; RESPIRATORY RATE 28 b/min; TIDAL VOLUME 300 mL; TOTAL HEMOGLOBIN 9.3 G/dl (13.5-17.5)
[2024-09-03] MEDS: potassium Cl 40MEQ/270ML bag 270 ML IV PRN (03:40)
[2024-09-03] MEDS ORDERED: iohexol 300mg/ml 100ml inj. ONE (11:35)
[2024-09-03] MEDS: propofol 1000mg/100ml bottle 100 ML IV ONE (16:40)
[2024-09-03] MEDS: propofol 1000mg/100ml bottle 100 ML IV SCH (16:56)
[2024-09-03 19:42] LABS: ALBUMIN 1.5 G/DL (3.4-5.0); ANION GAP 7 (8-16); BLOOD UREA NITROGEN 15 MG/DL (7-18); BUN/CREATININE RATIO 31.9 (10.0-20.0); CALCIUM 9.2 MG/DL (8.5-10.1); CHLORIDE 96 MMOL/L (99-107); CREATININE 0.47 MG/DL (0.60-1.10); GLUCOSE 121 MG/DL (70-104); POTASSIUM 3.6 MMOL/L (3.5-5.1); SODIUM 140 MMOL/L (135-145); TOTAL CARBON DIOXIDE 37.4 MMOL/L (24-32); eCRCL 220 ML/MIN; eGFR > 90 ML/MIN
[2024-09-04] VITALS (36 sets, daily range): BP systolic 103–170; BP diastolic 53–98; PULSE 91–117; RESP 28–30; O2SAT 90–97
[2024-09-04] MEDS: CISatracurium besylate inj. 100 MG in normal saline 100ml IV soln 90 ML IV PRN (00:19)
[2024-09-04 02:59] LABS: BASOPHILS # (AUTO) 0.1 X10'3 (0-0.2); MEAN CORPUSCULAR HGB CONC 33.2 g/dL (33.0-36.5); WHITE BLOOD COUNT 19.7 X10'3 (4.5-11.0)
[2024-09-04 03:01] LABS: BASOPHILS % (AUTO) 0.3 % (0-1); EOSINOPHILS # (AUTO) 0.4 X10'3 (0-0.9); EOSINOPHILS % (AUTO) 2.3 % (0-6); HEMATOCRIT 24.2 % (42.0-52.0); LYMPHOCYTES # (AUTO) 2.1 X10'3 (1.1-4.8); LYMPHOCYTES % (AUTO) 10.9 % (21-51); MEAN CORPUSCULAR HEMOGLOBIN 31.4 PG (27.0-31.0); MEAN CORPUSCULAR VOLUME 94.4 FL (78-98); MEAN PLATELET VOLUME 7.8 FL (7.4-10.4); MONOCYTES # (AUTO) 1.8 X10'3 (0-0.9); MONOCYTES % (AUTO) 9.4 % (2-12); NEUTROPHILS # (AUTO) 15.2 X10'3 (1.8-7.7); NEUTROPHILS % (AUTO) 77.1 % (42-75); PLATELET COUNT 825 X10'3 (140-440); RED BLOOD COUNT 2.56 X10'6 (4.70-6.10); RED CELL DISTRIBUTION WIDTH 14.6 % (11.5-14.5)
[2024-09-04 03:05] LABS: ABG BASE EXCESS 10.1 mmol/L (-2.0-3.0); ABG HCO3 33.9 mmol/L (21.0-28.0); ABG OXYGEN SATURATION 96.4 % (94.0-98.0); ABG PCO2 (T) 46.5 mmHg (35.0-48.0); ABG PH (T) 7.488 (7.350-7.450); ABG PO2 (T) 92.3 mmHg (83.0-108.0); FCOHb 0.1 % (0.5-1.5); FHHb 3.6 % (0.0-5.0); FMetHb 0.3 % (0.0-1.5); MODE AC; PEEP 13 cm H2O; RESPIRATORY RATE 28 b/min; TIDAL VOLUME 300 mL
[2024-09-04 03:15] LABS: ALANINE AMINOTRANSFERASE 44 U/L (12-78); ALBUMIN 1.5 G/DL (3.4-5.0); ALBUMIN/GLOBULIN RATIO 0.3 (1.1-1.5); ALKALINE PHOSPHATASE 132 IU/L (46-116); ANION GAP 6 (8-16); ASPARTATE AMINO TRANSFERASE 58 U/L (10-37); BILIRUBIN,TOTAL 0.3 MG/DL (0.1-1.0); BLOOD UREA NITROGEN 15 MG/DL (7-18); BUN/CREATININE RATIO 24.6 (10.0-20.0); CALCIUM 9.2 MG/DL (8.5-10.1); CHLORIDE 95 MMOL/L (99-107); CREATININE 0.61 MG/DL (0.60-1.10); GLUCOSE 150 MG/DL (70-104); LIPASE 102 U/L (16-77); MAGNESIUM 1.6 MG/DL (1.5-2.4); PHOSPHORUS 4.3 MG/DL (2.3-4.5); POTASSIUM 3.4 MMOL/L (3.5-5.1); SODIUM 139 MMOL/L (135-145); TOTAL CARBON DIOXIDE 37.7 MMOL/L (24-32); TRIGLYCERIDES 314 MG/DL (20-135); eCRCL 170 ML/MIN; eGFR > 90 ML/MIN
[2024-09-04 03:17] LABS: NUCLEATED RED BLOOD CELLS 2 /100WBC (0-0); TOTAL CELLS COUNTED 100
[2024-09-05] VITALS (40 sets, daily range): BP systolic 76–198; BP diastolic 54–101; PULSE 94–129; RESP 28–33; O2SAT 29–97
[2024-09-05 03:01] LABS: BASOPHILS # (AUTO) 0.1 X10'3 (0-0.2); BASOPHILS % (AUTO) 0.6 % (0-1); NEUTROPHILS # (AUTO) 13.9 X10'3 (1.8-7.7)
[2024-09-05 03:02] LABS: EOSINOPHILS # (AUTO) 0.7 X10'3 (0-0.9); EOSINOPHILS % (AUTO) 3.8 % (0-6); HEMATOCRIT 24.1 % (42.0-52.0); LYMPHOCYTES # (AUTO) 1.9 X10'3 (1.1-4.8); LYMPHOCYTES % (AUTO) 10.2 % (21-51); MEAN CORPUSCULAR HEMOGLOBIN 31.2 PG (27.0-31.0); MEAN CORPUSCULAR HGB CONC 33.2 g/dL (33.0-36.5); MEAN CORPUSCULAR VOLUME 93.9 FL (78-98); MEAN PLATELET VOLUME 7.8 FL (7.4-10.4); MONOCYTES # (AUTO) 1.7 X10'3 (0-0.9); MONOCYTES % (AUTO) 9.1 % (2-12); NEUTROPHILS % (AUTO) 76.3 % (42-75); PLATELET COUNT 896 X10'3 (140-440); RED BLOOD COUNT 2.57 X10'6 (4.70-6.10); RED CELL DISTRIBUTION WIDTH 14.5 % (11.5-14.5); WHITE BLOOD COUNT 18.3 X10'3 (4.5-11.0)
[2024-09-05 03:17] LABS: ABG BASE EXCESS 11.8 mmol/L (-2.0-3.0); ABG HCO3 35.9 mmol/L (21.0-28.0); ABG OXYGEN SATURATION 94.5 % (94.0-98.0); ABG PCO2 (T) 47.9 mmHg (35.0-48.0); ABG PH (T) 7.497 (7.350-7.450); FCOHb 0.5 % (0.5-1.5); FHHb 5.5 % (0.0-5.0); FMetHb 0.3 % (0.0-1.5); FO2Hb 93.7 % (94.0-98.0); MODE ac vc+; PATIENT TEMPERATURE 38.4; PEEP 13 cm H2O; RESPIRATORY RATE 28 b/min; TIDAL VOLUME 300 mL; TOTAL HEMOGLOBIN 9.2 G/dl (13.5-17.5)
[2024-09-05 03:21] LABS: ALANINE AMINOTRANSFERASE 49 U/L (12-78); ALBUMIN 1.5 G/DL (3.4-5.0); ALBUMIN/GLOBULIN RATIO 0.3 (1.1-1.5); ALKALINE PHOSPHATASE 126 IU/L (46-116); ANION GAP 5 (8-16); ASPARTATE AMINO TRANSFERASE 62 U/L (10-37); BILIRUBIN,TOTAL 0.4 MG/DL (0.1-1.0); BLOOD UREA NITROGEN 14 MG/DL (7-18); BUN/CREATININE RATIO 27.5 (10.0-20.0); CALCIUM 9.1 MG/DL (8.5-10.1); CHLORIDE 95 MMOL/L (99-107); CREATININE 0.51 MG/DL (0.60-1.10); GLUCOSE 135 MG/DL (70-104); LIPASE 103 U/L (16-77); MAGNESIUM 1.5 MG/DL (1.5-2.4); PHOSPHORUS 4.3 MG/DL (2.3-4.5); PREALBUMIN 13.1 MG/DL (19-36); SODIUM 138 MMOL/L (135-145); TOTAL CARBON DIOXIDE 37.6 MMOL/L (24-32); eCRCL 203 ML/MIN; eGFR > 90 ML/MIN
[2024-09-05] MEDS: POTASSIUM CHLORIDE 20 MEQ/15 ML oral solution NG SCH (12:03)
[2024-09-05 12:27] LABS: ALANINE AMINOTRANSFERASE 54 U/L (12-78); ALBUMIN 1.5 G/DL (3.4-5.0); ALBUMIN/GLOBULIN RATIO 0.3 (1.1-1.5); ALKALINE PHOSPHATASE 147 IU/L (46-116); ANION GAP 2 (8-16); ASPARTATE AMINO TRANSFERASE 58 U/L (10-37); BILIRUBIN,TOTAL 0.3 MG/DL (0.1-1.0); BLOOD UREA NITROGEN 14 MG/DL (7-18); BUN/CREATININE RATIO 37.8 (10.0-20.0); CALCIUM 8.9 MG/DL (8.5-10.1); CHLORIDE 96 MMOL/L (99-107); CREATININE 0.37 MG/DL (0.60-1.10); GLUCOSE 131 MG/DL (70-104); MAGNESIUM 1.5 MG/DL (1.5-2.4); PHOSPHORUS 4.3 MG/DL (2.3-4.5); POTASSIUM 3.9 MMOL/L (3.5-5.1); SODIUM 138 MMOL/L (135-145); TOTAL CARBON DIOXIDE 39.7 MMOL/L (24-32); eCRCL 280 ML/MIN; eGFR > 90 ML/MIN
[2024-09-05] MEDS: metoclopramide 5 mg/ml inj IV SCH (19:06)
[2024-09-06] VITALS (39 sets, daily range): BP systolic 103–158; BP diastolic 50–87; PULSE 92–121; RESP 22–54; O2SAT 90–98
[2024-09-06 03:13] LABS: ABG BASE EXCESS 9.3 mmol/L (-2.0-3.0); ABG HCO3 33.6 mmol/L (21.0-28.0); ABG OXYGEN SATURATION 97.9 % (94.0-98.0); ABG PCO2 (T) 47.4 mmHg (35.0-48.0); ABG PH (T) 7.472 (7.350-7.450); ABG PO2 (T) 103.4 mmHg (83.0-108.0); FCOHb 0.6 % (0.5-1.5); FHHb 2.1 % (0.0-5.0); FMetHb 0.3 % (0.0-1.5); MODE ac vc+; PATIENT TEMPERATURE 38.1; PEEP 13 cm H2O; RESPIRATORY RATE 28 b/min; TIDAL VOLUME 300 mL; TOTAL HEMOGLOBIN 8.7 G/dl (13.5-17.5)
[2024-09-06 03:14] LABS: BASOPHILS # (AUTO) 0.2 X10'3 (0-0.2); EOSINOPHILS # (AUTO) 0.9 X10'3 (0-0.9); EOSINOPHILS % (AUTO) 4.2 % (0-6); HEMOGLOBIN 8.3 g/dl (14.0-17.9)
[2024-09-06 03:16] LABS: BASOPHILS % (AUTO) 0.8 % (0-1); HEMATOCRIT 25.2 % (42.0-52.0); MEAN CORPUSCULAR HEMOGLOBIN 30.9 PG (27.0-31.0); MEAN CORPUSCULAR HGB CONC 32.9 g/dL (33.0-36.5); MEAN CORPUSCULAR VOLUME 93.9 FL (78-98); MEAN PLATELET VOLUME 7.5 FL (7.4-10.4); MONOCYTES # (AUTO) 1.9 X10'3 (0-0.9); MONOCYTES % (AUTO) 8.4 % (2-12); NEUTROPHILS # (AUTO) 17.2 X10'3 (1.8-7.7); NEUTROPHILS % (AUTO) 77.6 % (42-75); RED BLOOD COUNT 2.68 X10'6 (4.70-6.10); RED CELL DISTRIBUTION WIDTH 14.4 % (11.5-14.5); WHITE BLOOD COUNT 22.2 X10'3 (4.5-11.0)
[2024-09-06 03:30] LABS: ALANINE AMINOTRANSFERASE 55 U/L (12-78); ALBUMIN 1.5 G/DL (3.4-5.0); ALBUMIN/GLOBULIN RATIO 0.3 (1.1-1.5); ALKALINE PHOSPHATASE 162 IU/L (46-116); ANION GAP 5 (8-16); ASPARTATE AMINO TRANSFERASE 56 U/L (10-37); BILIRUBIN,TOTAL 0.3 MG/DL (0.1-1.0); BLOOD UREA NITROGEN 15 MG/DL (7-18); BUN/CREATININE RATIO 37.5 (10.0-20.0); CALCIUM 9.4 MG/DL (8.5-10.1); CHLORIDE 94 MMOL/L (99-107); GLUCOSE 123 MG/DL (70-104); MAGNESIUM 1.4 MG/DL (1.5-2.4); PHOSPHORUS 4.9 MG/DL (2.3-4.5); POTASSIUM 4.1 MMOL/L (3.5-5.1); SODIUM 139 MMOL/L (135-145); TOTAL PROTEIN 7.2 G/DL (6.4-8.2); eCRCL 259 ML/MIN; eGFR > 90 ML/MIN
[2024-09-06 03:41] LABS: PLATELET COUNT 1007 X10'3 (140-440); TOTAL CARBON DIOXIDE 40.2 MMOL/L (24-32)
[2024-09-06] MEDS: CISatracurium besylate inj. 200 MG in normal saline 250ml IV soln 180 ML IV PRN (07:49)
[2024-09-06] MEDS: magnesium sulf-water 4G/100mL 100 ML IV PRN (10:43)
[2024-09-06] MEDS: POTASSIUM CHLORIDE 20 MEQ/15 ML oral solution NG SCH (14:00)
[2024-09-06 17:44] LABS: ABG BASE EXCESS 14.7 mmol/L (-2.0-3.0); ABG HCO3 37.9 mmol/L (21.0-28.0); ABG PCO2 (T) 44.3 mmHg (35.0-48.0); ABG PH (T) 7.555 (7.350-7.450); ABG PO2 (T) 86.8 mmHg (83.0-108.0); FCOHb 0.1 % (0.5-1.5); FO2Hb 95.9 % (94.0-98.0); MODE VENT - APRV; PATIENT TEMPERATURE 38.5; PEEP 9 cm H2O; RESPIRATORY RATE 28 b/min; TIDAL VOLUME 300 mL
[2024-09-06] MEDS: COMMUNICATION ORDER 1 EA MISC MC SCH (20:00)
[2024-09-06 21:26] LABS: ABG BASE EXCESS 15.2 mmol/L (-2.0-3.0); ABG HCO3 39.4 mmol/L (21.0-28.0); ABG OXYGEN SATURATION 92.8 % (94.0-98.0); ABG PCO2 (T) 50.1 mmHg (35.0-48.0); ABG PH (T) 7.518 (7.350-7.450); FHHb 7.2 % (0.0-5.0); FMetHb 0.3 % (0.0-1.5); FO2Hb 92.5 % (94.0-98.0); MODE prvc; PATIENT TEMPERATURE 38.3; PEEP 9 cm H2O; RESPIRATORY RATE 28 b/min; TIDAL VOLUME 300 mL; TOTAL HEMOGLOBIN 8.9 G/dl (13.5-17.5)
[2024-09-07] VITALS (35 sets, daily range): BP systolic 86–152; BP diastolic 55–103; PULSE 92–122; RESP 20–29; O2SAT 89–97
[2024-09-07 02:30] LABS: HEMATOCRIT 22.6 % (42.0-52.0); HEMOGLOBIN 7.5 g/dl (14.0-17.9); LYMPHOCYTES # (AUTO) 2.1 X10'3 (1.1-4.8); MEAN CORPUSCULAR HGB CONC 33.1 g/dL (33.0-36.5); RED BLOOD COUNT 2.43 X10'6 (4.70-6.10); RED CELL DISTRIBUTION WIDTH 14.8 % (11.5-14.5)
[2024-09-07 02:32] LABS: BASOPHILS # (AUTO) 0.2 X10'3 (0-0.2); EOSINOPHILS # (AUTO) 0.9 X10'3 (0-0.9); EOSINOPHILS % (AUTO) 4.5 % (0-6); LYMPHOCYTES % (AUTO) 10.8 % (21-51); MEAN CORPUSCULAR HEMOGLOBIN 30.8 PG (27.0-31.0); MEAN CORPUSCULAR VOLUME 92.9 FL (78-98); MEAN PLATELET VOLUME 7.2 FL (7.4-10.4); MONOCYTES # (AUTO) 1.7 X10'3 (0-0.9); MONOCYTES % (AUTO) 9.1 % (2-12); NEUTROPHILS # (AUTO) 14.4 X10'3 (1.8-7.7); NEUTROPHILS % (AUTO) 74.6 % (42-75); PLATELET COUNT 957 X10'3 (140-440); WHITE BLOOD COUNT 19.3 X10'3 (4.5-11.0)
[2024-09-07 02:44] LABS: ALANINE AMINOTRANSFERASE 45 U/L (12-78); ALBUMIN 1.4 G/DL (3.4-5.0); ALBUMIN/GLOBULIN RATIO 0.3 (1.1-1.5); ALKALINE PHOSPHATASE 184 IU/L (46-116); ANION GAP 3 (8-16); ASPARTATE AMINO TRANSFERASE 44 U/L (10-37); BILIRUBIN,TOTAL 0.3 MG/DL (0.1-1.0); BLOOD UREA NITROGEN 16 MG/DL (7-18); CALCIUM 8.7 MG/DL (8.5-10.1); CHLORIDE 94 MMOL/L (99-107); GLUCOSE 141 MG/DL (70-104); MAGNESIUM 1.7 MG/DL (1.5-2.4); PHOSPHORUS 4.2 MG/DL (2.3-4.5); POTASSIUM 3.3 MMOL/L (3.5-5.1); SODIUM 135 MMOL/L (135-145); TOTAL CARBON DIOXIDE 38.2 MMOL/L (24-32); TOTAL PROTEIN 6.7 G/DL (6.4-8.2); eCRCL 207 ML/MIN; eGFR > 90 ML/MIN
[2024-09-07 03:21] LABS: ABG BASE EXCESS 14.5 mmol/L (-2.0-3.0); ABG OXYGEN SATURATION 91.7 % (94.0-98.0); ABG PH (T) 7.505 (7.350-7.450); FCOHb 0.5 % (0.5-1.5); FHHb 8.2 % (0.0-5.0); FMetHb 0.3 % (0.0-1.5); MODE prvc; PATIENT TEMPERATURE 37.8; PEEP 9 cm H2O; RESPIRATORY RATE 28 b/min; TIDAL VOLUME 300 mL; TOTAL HEMOGLOBIN 8.7 G/dl (13.5-17.5)
[2024-09-07 12:35] LABS: ABG BASE EXCESS 13.8 mmol/L (-2.0-3.0); ABG HCO3 40.5 mmol/L (21.0-28.0); ABG PH (T) 7.395 (7.350-7.450); FCOHb 0.3 % (0.5-1.5); FMetHb 0.3 % (0.0-1.5); FO2Hb 96.4 % (94.0-98.0); MODE VENT - AC; PATIENT TEMPERATURE 37.5; PEEP 12 cm H2O; RESPIRATORY RATE 20 b/min; TIDAL VOLUME 300 mL; TOTAL HEMOGLOBIN 8.8 G/dl (13.5-17.5)
[2024-09-08] VITALS (34 sets, daily range): BP systolic 105–169; BP diastolic 61–104; PULSE 83–125; RESP 19–21; O2SAT 87–99
[2024-09-08 03:25] LABS: BASOPHILS # (AUTO) 0.2 X10'3 (0-0.2); RED BLOOD COUNT 2.76 X10'6 (4.70-6.10)
[2024-09-08 03:26] LABS: HEMATOCRIT 25.9 % (42.0-52.0); HEMOGLOBIN 8.4 g/dl (14.0-17.9); LYMPHOCYTES # (AUTO) 1.7 X10'3 (1.1-4.8); LYMPHOCYTES % (AUTO) 7.1 % (21-51); MEAN CORPUSCULAR HEMOGLOBIN 30.5 PG (27.0-31.0); MEAN CORPUSCULAR HGB CONC 32.6 g/dL (33.0-36.5); MEAN CORPUSCULAR VOLUME 93.8 FL (78-98); MEAN PLATELET VOLUME 6.9 FL (7.4-10.4); MONOCYTES % (AUTO) 7.9 % (2-12); NEUTROPHILS # (AUTO) 19.7 X10'3 (1.8-7.7); RED CELL DISTRIBUTION WIDTH 14.7 % (11.5-14.5); WHITE BLOOD COUNT 24.6 X10'3 (4.5-11.0)
[2024-09-08 03:29] LABS: PLATELET COUNT 1102 X10'3 (140-440)
[2024-09-08 03:37] LABS: ABG BASE EXCESS 18.7 mmol/L (-2.0-3.0); ABG HCO3 46.1 mmol/L (21.0-28.0); ABG OXYGEN SATURATION 89.9 % (94.0-98.0); ABG PCO2 (T) 71.9 mmHg (35.0-48.0); ABG PH (T) 7.422 (7.350-7.450); ALLEN'S TEST POSITIVE; FCOHb 0.3 % (0.5-1.5); FMetHb 0.3 % (0.0-1.5); FO2Hb 89.4 % (94.0-98.0); MODE PRVC; PATIENT TEMPERATURE 36.5; PEEP 12 cm H2O; RESPIRATORY RATE 20 b/min; TIDAL VOLUME 300 mL; TOTAL HEMOGLOBIN 9.4 G/dl (13.5-17.5)
[2024-09-08 03:38] LABS: ALANINE AMINOTRANSFERASE 38 U/L (12-78); ALBUMIN 1.6 G/DL (3.4-5.0); ALBUMIN/GLOBULIN RATIO 0.3 (1.1-1.5); ALKALINE PHOSPHATASE 156 IU/L (46-116); ANION GAP 3 (8-16); ASPARTATE AMINO TRANSFERASE 32 U/L (10-37); BILIRUBIN,TOTAL 0.2 MG/DL (0.1-1.0); BLOOD UREA NITROGEN 15 MG/DL (7-18); BUN/CREATININE RATIO 41.7 (10.0-20.0); CALCIUM 9.3 MG/DL (8.5-10.1); CHLORIDE 91 MMOL/L (99-107); CREATININE 0.36 MG/DL (0.60-1.10); GLUCOSE 147 MG/DL (70-104); MAGNESIUM 1.4 MG/DL (1.5-2.4); PHOSPHORUS 4.6 MG/DL (2.3-4.5); POTASSIUM 3.7 MMOL/L (3.5-5.1); SODIUM 138 MMOL/L (135-145); TOTAL PROTEIN 7.5 G/DL (6.4-8.2); eCRCL 288 ML/MIN; eGFR > 90 ML/MIN
[2024-09-08 03:47] LABS: TOTAL CARBON DIOXIDE 44.2 MMOL/L (24-32)
[2024-09-08 03:50] LABS: TOTAL CELLS COUNTED 100
[2024-09-08 03:51] LABS: PLATELET ESTIMATE INCREASED
[2024-09-08 03:52] LABS: MICROCYTOSIS 1+; STOMATOCYTES 3+
[2024-09-08] MEDS: magnesium sulf-water 2g/50mL 50 ML IV PRN (05:49)
[2024-09-08 09:54] LABS: ABG BASE EXCESS 14.8 mmol/L (-2.0-3.0); ABG HCO3 41.1 mmol/L (21.0-28.0); ABG OXYGEN SATURATION 98.2 % (94.0-98.0); ABG PCO2 (T) 62.8 mmHg (35.0-48.0); ABG PH (T) 7.432 (7.350-7.450); ABG PO2 (T) 105.2 mmHg (83.0-108.0); ALLEN'S TEST POSITIVE; FCOHb 0.1 % (0.5-1.5); FHHb 1.8 % (0.0-5.0); FMetHb 0.3 % (0.0-1.5); FO2Hb 97.8 % (94.0-98.0); MODE VENT - AC; PATIENT TEMPERATURE 36.6; PEEP 12 cm H2O; RESPIRATORY RATE 20 b/min; TIDAL VOLUME 300 mL; TOTAL HEMOGLOBIN 8.7 G/dl (13.5-17.5)
[2024-09-09] VITALS (36 sets, daily range): BP systolic 96–138; BP diastolic 56–90; PULSE 86–119; RESP 20–21; O2SAT 90–98
[2024-09-09 02:01] LABS: MEAN CORPUSCULAR VOLUME 93.3 FL (78-98); MONOCYTES % (AUTO) 7.9 % (2-12)
[2024-09-09 02:07] LABS: BASOPHILS # (AUTO) 0.2 X10'3 (0-0.2); BASOPHILS % (AUTO) 0.6 % (0-1); EOSINOPHILS # (AUTO) 0.9 X10'3 (0-0.9); EOSINOPHILS % (AUTO) 3.7 % (0-6); HEMATOCRIT 24.6 % (42.0-52.0); LYMPHOCYTES # (AUTO) 2.3 X10'3 (1.1-4.8); LYMPHOCYTES % (AUTO) 9.2 % (21-51); MEAN CORPUSCULAR HEMOGLOBIN 30.3 PG (27.0-31.0); MEAN CORPUSCULAR HGB CONC 32.4 g/dL (33.0-36.5); NEUTROPHILS # (AUTO) 19.7 X10'3 (1.8-7.7); NEUTROPHILS % (AUTO) 78.6 % (42-75); RED BLOOD COUNT 2.64 X10'6 (4.70-6.10); RED CELL DISTRIBUTION WIDTH 15.1 % (11.5-14.5)
[2024-09-09 02:20] LABS: ALANINE AMINOTRANSFERASE 31 U/L (12-78); ALBUMIN 1.6 G/DL (3.4-5.0); ALBUMIN/GLOBULIN RATIO 0.3 (1.1-1.5); ALKALINE PHOSPHATASE 154 IU/L (46-116); ASPARTATE AMINO TRANSFERASE 32 U/L (10-37); BILIRUBIN,TOTAL 0.2 MG/DL (0.1-1.0); BLOOD UREA NITROGEN 15 MG/DL (7-18); BUN/CREATININE RATIO 36.6 (10.0-20.0); CALCIUM 9.4 MG/DL (8.5-10.1); CHLORIDE 92 MMOL/L (99-107); CREATININE 0.41 MG/DL (0.60-1.10); GLUCOSE 111 MG/DL (70-104); MAGNESIUM 1.7 MG/DL (1.5-2.4); PHOSPHORUS 3.9 MG/DL (2.3-4.5); POTASSIUM 3.7 MMOL/L (3.5-5.1); SODIUM 139 MMOL/L (135-145); TOTAL PROTEIN 7.4 G/DL (6.4-8.2); eCRCL 253 ML/MIN; eGFR > 90 ML/MIN
[2024-09-09 02:21] LABS: ANION GAP -2 (8-16)
[2024-09-09 02:26] LABS: TOTAL CARBON DIOXIDE 49.3 MMOL/L (24-32)
[2024-09-09 02:33] LABS: PLATELET COUNT 1084 X10'3 (140-440); WHITE BLOOD COUNT 25.1 X10'3 (4.5-11.0)
[2024-09-09 02:46] LABS: TOTAL CELLS COUNTED 100
[2024-09-09 02:47] LABS: PLATELET ESTIMATE INCREASED
[2024-09-09 03:37] LABS: ABG BASE EXCESS 17.1 mmol/L (-2.0-3.0); ABG HCO3 42.8 mmol/L (21.0-28.0); ABG OXYGEN SATURATION 98.2 % (94.0-98.0); ABG PCO2 (T) 60.2 mmHg (35.0-48.0); ABG PH (T) 7.471 (7.350-7.450); ABG PO2 (T) 109.9 mmHg (83.0-108.0); ALLEN'S TEST Modified; FCOHb 0.3 % (0.5-1.5); FHHb 1.8 % (0.0-5.0); FMetHb 0.3 % (0.0-1.5); FO2Hb 97.6 % (94.0-98.0); MODE PRVC; PATIENT TEMPERATURE 37.4; PEEP 12 cm H2O; RESPIRATORY RATE 20 b/min; TIDAL VOLUME 300 mL; TOTAL HEMOGLOBIN 9.2 G/dl (13.5-17.5)
[2024-09-09] MEDS: acetaZOLAMIDE IV 500mg inj IV SCH (09:08)
[2024-09-10] VITALS (33 sets, daily range): BP systolic 98–185; BP diastolic 60–115; PULSE 91–131; RESP 20; O2SAT 91–99
[2024-09-10 02:44] LABS: EOSINOPHILS # (AUTO) 1.2 X10'3 (0-0.9); HEMOGLOBIN 7.9 g/dl (14.0-17.9); LYMPHOCYTES # (AUTO) 2.5 X10'3 (1.1-4.8); MEAN PLATELET VOLUME 7.1 FL (7.4-10.4); WHITE BLOOD COUNT 22.3 X10'3 (4.5-11.0)
[2024-09-10 02:46] LABS: BASOPHILS # (AUTO) 0.2 X10'3 (0-0.2); BASOPHILS % (AUTO) 0.8 % (0-1); EOSINOPHILS % (AUTO) 5.4 % (0-6); LYMPHOCYTES % (AUTO) 11.2 % (21-51); MEAN CORPUSCULAR HEMOGLOBIN 30.9 PG (27.0-31.0); MEAN CORPUSCULAR HGB CONC 32.8 g/dL (33.0-36.5); MEAN CORPUSCULAR VOLUME 94.2 FL (78-98); MONOCYTES # (AUTO) 1.8 X10'3 (0-0.9); MONOCYTES % (AUTO) 7.8 % (2-12); NEUTROPHILS # (AUTO) 16.7 X10'3 (1.8-7.7); NEUTROPHILS % (AUTO) 74.8 % (42-75); RED BLOOD COUNT 2.55 X10'6 (4.70-6.10); RED CELL DISTRIBUTION WIDTH 15.1 % (11.5-14.5)
[2024-09-10 03:10] LABS: PLATELET COUNT 1078 X10'3 (140-440)
[2024-09-10 03:20] LABS: TOTAL CELLS COUNTED 100
[2024-09-10 03:21] LABS: PLATELET ESTIMATE INCREASED
[2024-09-10 03:28] LABS: ABG BASE EXCESS 16.6 mmol/L (-2.0-3.0); ABG HCO3 43.5 mmol/L (21.0-28.0); ABG OXYGEN SATURATION 98.1 % (94.0-98.0); ABG PCO2 (T) 70.3 mmHg (35.0-48.0); ABG PO2 (T) 109.3 mmHg (83.0-108.0); ALLEN'S TEST Modified; FCOHb 0.3 % (0.5-1.5); FHHb 1.9 % (0.0-5.0); FMetHb 0.1 % (0.0-1.5); FO2Hb 97.7 % (94.0-98.0); MODE prvc; PATIENT TEMPERATURE 37.1; PEEP 12 cm H2O; RESPIRATORY RATE 20 b/min; TIDAL VOLUME 300 mL; TOTAL HEMOGLOBIN 8.7 G/dl (13.5-17.5)
[2024-09-10 03:41] LABS: ALANINE AMINOTRANSFERASE 33 U/L (12-78); ALBUMIN 1.7 G/DL (3.4-5.0); ALBUMIN/GLOBULIN RATIO 0.3 (1.1-1.5); ALKALINE PHOSPHATASE 128 IU/L (46-116); ASPARTATE AMINO TRANSFERASE 31 U/L (10-37); BILIRUBIN,TOTAL 0.2 MG/DL (0.1-1.0); BLOOD UREA NITROGEN 16 MG/DL (7-18); CALCIUM 9.5 MG/DL (8.5-10.1); CHLORIDE 94 MMOL/L (99-107); GLUCOSE 130 MG/DL (70-104); MAGNESIUM 1.6 MG/DL (1.5-2.4); PHOSPHORUS 6.1 MG/DL (2.3-4.5); SODIUM 139 MMOL/L (135-145); TOTAL PROTEIN 7.3 G/DL (6.4-8.2); TRIGLYCERIDES 546 MG/DL (20-135); eCRCL 207 ML/MIN; eGFR > 90 ML/MIN
[2024-09-10 03:48] LABS: ANION GAP -2 (8-16)
[2024-09-10 04:01] LABS: POTASSIUM 2.8 MMOL/L (3.5-5.1); TOTAL CARBON DIOXIDE 47.4 MMOL/L (24-32)
[2024-09-10] MEDS: furosemide 40mg/4ml inj IV SCH (08:00)
[2024-09-10] MEDS ORDERED: ketamine 10mg/ml 20ml inj 100 MG in normal saline 100ml IV soln 90 ML IV SCH (10:40)
[2024-09-10] MEDS: NORMAL SALINE IV SCH (12:57)
[2024-09-10] MEDS: KETAMINE IV SCH (12:57)
[2024-09-10] MEDS: metoprolol tartrate 50mg tablet PO SCH (20:08)
[2024-09-10 20:52] LABS: ALANINE AMINOTRANSFERASE 24 U/L (12-78); ALBUMIN 1.6 G/DL (3.4-5.0); ALBUMIN/GLOBULIN RATIO 0.3 (1.1-1.5); ALKALINE PHOSPHATASE 108 IU/L (46-116); ANION GAP 1 (8-16); ASPARTATE AMINO TRANSFERASE 29 U/L (10-37); BILIRUBIN,TOTAL 0.2 MG/DL (0.1-1.0); BLOOD UREA NITROGEN 18 MG/DL (7-18); CALCIUM 9.4 MG/DL (8.5-10.1); CHLORIDE 101 MMOL/L (99-107); GLUCOSE 119 MG/DL (70-104); MAGNESIUM 1.7 MG/DL (1.5-2.4); PHOSPHORUS 4.1 MG/DL (2.3-4.5); POTASSIUM 3.5 MMOL/L (3.5-5.1); SODIUM 143 MMOL/L (135-145); eCRCL 259 ML/MIN; eGFR > 90 ML/MIN
[2024-09-10 21:28] LABS: TOTAL CARBON DIOXIDE 41.3 MMOL/L (24-32)
[2024-09-10 23:35] LABS: TRIGLYCERIDES 511 MG/DL (20-135)
[2024-09-11] VITALS (35 sets, daily range): BP systolic 97–181; BP diastolic 56–119; PULSE 87–130; RESP 18–20; O2SAT 90–97
[2024-09-11 02:18] LABS: ABG BASE EXCESS 13.6 mmol/L (-2.0-3.0); ABG HCO3 41.7 mmol/L (21.0-28.0); ABG OXYGEN SATURATION 92.4 % (94.0-98.0); ABG PCO2 (T) 77.3 mmHg (35.0-48.0); ABG PO2 (T) 68.9 mmHg (83.0-108.0); ALLEN'S TEST Modified; FCOHb 0.2 % (0.5-1.5); FHHb 7.6 % (0.0-5.0); FMetHb 0.3 % (0.0-1.5); FO2Hb 91.9 % (94.0-98.0); MODE prvc; PEEP 10 cm H2O; RESPIRATORY RATE 20 b/min; TIDAL VOLUME 300 mL
[2024-09-11 02:28] LABS: BASOPHILS # (AUTO) 0.2 X10'3 (0-0.2); HEMOGLOBIN 8.8 g/dl (14.0-17.9); NEUTROPHILS # (AUTO) 16.3 X10'3 (1.8-7.7)
[2024-09-11 02:30] LABS: BASOPHILS % (AUTO) 0.7 % (0-1); EOSINOPHILS # (AUTO) 1.1 X10'3 (0-0.9); LYMPHOCYTES % (AUTO) 13.5 % (21-51); MEAN CORPUSCULAR HEMOGLOBIN 30.6 PG (27.0-31.0); MEAN CORPUSCULAR HGB CONC 32.6 g/dL (33.0-36.5); MEAN PLATELET VOLUME 6.8 FL (7.4-10.4); MONOCYTES # (AUTO) 1.7 X10'3 (0-0.9); MONOCYTES % (AUTO) 7.7 % (2-12); NEUTROPHILS % (AUTO) 73.1 % (42-75); RED BLOOD COUNT 2.88 X10'6 (4.70-6.10); RED CELL DISTRIBUTION WIDTH 14.7 % (11.5-14.5); WHITE BLOOD COUNT 22.4 X10'3 (4.5-11.0)
[2024-09-11 02:40] LABS: PLATELET COUNT 1149 X10'3 (140-440)
[2024-09-11 02:56] LABS: ALANINE AMINOTRANSFERASE 26 U/L (12-78); ALBUMIN 1.8 G/DL (3.4-5.0); ALBUMIN/GLOBULIN RATIO 0.3 (1.1-1.5); ALKALINE PHOSPHATASE 119 IU/L (46-116); ANION GAP 4 (8-16); ASPARTATE AMINO TRANSFERASE 33 U/L (10-37); BILIRUBIN,TOTAL 0.2 MG/DL (0.1-1.0); BLOOD UREA NITROGEN 18 MG/DL (7-18); CALCIUM 9.9 MG/DL (8.5-10.1); CHLORIDE 100 MMOL/L (99-107); GLUCOSE 135 MG/DL (70-104); MAGNESIUM 1.7 MG/DL (1.5-2.4); PHOSPHORUS 4.5 MG/DL (2.3-4.5); POTASSIUM 3.4 MMOL/L (3.5-5.1); SODIUM 143 MMOL/L (135-145); TOTAL CARBON DIOXIDE 38.7 MMOL/L (24-32); TOTAL PROTEIN 7.8 G/DL (6.4-8.2); TRIGLYCERIDES 426 MG/DL (20-135); eCRCL 259 ML/MIN; eGFR > 90 ML/MIN
[2024-09-11 03:31] LABS: NUCLEATED RED BLOOD CELLS 2 /100WBC (0-0); TOTAL CELLS COUNTED 100
[2024-09-11] MEDS: metoprolol tartrate 50mg tablet PO SCH (08:18)
[2024-09-11 10:37] LABS: ABG BASE EXCESS 6.7 mmol/L (-2.0-3.0); ABG HCO3 31.3 mmol/L (21.0-28.0); ABG OXYGEN SATURATION 98.3 % (94.0-98.0); ABG PCO2 (T) 46.4 mmHg (35.0-48.0); ABG PH (T) 7.448 (7.350-7.450); ABG PO2 (T) 110.7 mmHg (83.0-108.0); ALLEN'S TEST POSITIVE; FCOHb 0.3 % (0.5-1.5); FHHb 1.7 % (0.0-5.0); FMetHb 0.3 % (0.0-1.5); FO2Hb 97.7 % (94.0-98.0); MODE VENT - AC/PRVC; PATIENT TEMPERATURE 37.3; PEEP 12 cm H2O; RESPIRATORY RATE 18 b/min; TIDAL VOLUME 450 mL; TOTAL HEMOGLOBIN 9.1 G/dl (13.5-17.5)
[2024-09-11] MEDS ORDERED: enoxaparin 100mg/ml syringe SUBCUT SCH (11:40)
[2024-09-12] VITALS (42 sets, daily range): BP systolic 88–148; BP diastolic 50–102; PULSE 82–112; RESP 16–19; TEMP 100–100.5; O2SAT 91–98
[2024-09-12 03:28] LABS: ABG HCO3 29.6 mmol/L (21.0-28.0); ABG OXYGEN SATURATION 96.2 % (94.0-98.0); ABG PCO2 (T) 44.9 mmHg (35.0-48.0); ABG PH (T) 7.439 (7.350-7.450); ABG PO2 (T) 82.9 mmHg (83.0-108.0); ALLEN'S TEST POSITIVE; FCOHb 0.5 % (0.5-1.5); FHHb 3.8 % (0.0-5.0); FMetHb 0.3 % (0.0-1.5); FO2Hb 95.4 % (94.0-98.0); MODE VENT - AC/ prvc; PATIENT TEMPERATURE 37.5; PEEP 12 cm H2O; RESPIRATORY RATE 18 b/min; TIDAL VOLUME 450 mL; TOTAL HEMOGLOBIN 9.3 G/dl (13.5-17.5)
[2024-09-12 03:56] LABS: BASOPHILS % (AUTO) 0.8 % (0-1); EOSINOPHILS # (AUTO) 1.7 X10'3 (0-0.9); HEMATOCRIT 25.5 % (42.0-52.0); HEMOGLOBIN 8.3 g/dl (14.0-17.9); MEAN CORPUSCULAR HGB CONC 32.3 g/dL (33.0-36.5); RED CELL DISTRIBUTION WIDTH 15.5 % (11.5-14.5)
[2024-09-12 03:57] LABS: BASOPHILS # (AUTO) 0.1 X10'3 (0-0.2); EOSINOPHILS % (AUTO) 9.2 % (0-6); LYMPHOCYTES # (AUTO) 2.7 X10'3 (1.1-4.8); LYMPHOCYTES % (AUTO) 14.6 % (21-51); MEAN CORPUSCULAR HEMOGLOBIN 30.3 PG (27.0-31.0); MEAN CORPUSCULAR VOLUME 93.7 FL (78-98); MEAN PLATELET VOLUME 6.7 FL (7.4-10.4); MONOCYTES # (AUTO) 1.2 X10'3 (0-0.9); MONOCYTES % (AUTO) 6.4 % (2-12); RED BLOOD COUNT 2.72 X10'6 (4.70-6.10); WHITE BLOOD COUNT 18.9 X10'3 (4.5-11.0)
[2024-09-12 04:08] LABS: ALANINE AMINOTRANSFERASE 32 U/L (12-78); ALBUMIN 1.9 G/DL (3.4-5.0); ALBUMIN/GLOBULIN RATIO 0.3 (1.1-1.5); ALKALINE PHOSPHATASE 95 IU/L (46-116); ASPARTATE AMINO TRANSFERASE 32 U/L (10-37); BILIRUBIN,TOTAL 0.2 MG/DL (0.1-1.0); BLOOD UREA NITROGEN 20 MG/DL (7-18); BUN/CREATININE RATIO 47.6 (10.0-20.0); CALCIUM 9.6 MG/DL (8.5-10.1); CREATININE 0.42 MG/DL (0.60-1.10); GLUCOSE 111 MG/DL (70-104); MAGNESIUM 1.7 MG/DL (1.5-2.4); PHOSPHORUS 4.2 MG/DL (2.3-4.5); SODIUM 145 MMOL/L (135-145); TOTAL CARBON DIOXIDE 35.1 MMOL/L (24-32); TOTAL PROTEIN 7.4 G/DL (6.4-8.2); eCRCL 247 ML/MIN; eGFR > 90 ML/MIN
[2024-09-12 04:10] LABS: ANION GAP 4 (8-16); CHLORIDE 106 MMOL/L (99-107); PLATELET COUNT 1028 X10'3 (140-440)
[2024-09-12 04:23] LABS: PLATELET ESTIMATE INCREASED; TOTAL CELLS COUNTED 100
[2024-09-12] MEDS: metolazone 2.5mg tablet NG SCH (08:00)
[2024-09-12] MEDS: metoprolol tartrate 50mg tablet PO SCH (20:03)
[2024-09-13] VITALS (36 sets, daily range): BP systolic 96–165; BP diastolic 54–103; PULSE 87–127; RESP 17–33; O2SAT 90–98
[2024-09-13 03:02] LABS: BASOPHILS % (AUTO) 0.9 % (0-1); HEMOGLOBIN 8.9 g/dl (14.0-17.9); MEAN CORPUSCULAR HEMOGLOBIN 30.2 PG (27.0-31.0); MEAN CORPUSCULAR HGB CONC 32.4 g/dL (33.0-36.5); MEAN CORPUSCULAR VOLUME 93.2 FL (78-98); PLATELET COUNT 994 X10'3 (140-440); RED BLOOD COUNT 2.95 X10'6 (4.70-6.10); WHITE BLOOD COUNT 16.8 X10'3 (4.5-11.0)
[2024-09-13 03:04] LABS: BASOPHILS # (AUTO) 0.1 X10'3 (0-0.2); EOSINOPHILS # (AUTO) 1.9 X10'3 (0-0.9); EOSINOPHILS % (AUTO) 11.2 % (0-6); HEMATOCRIT 27.5 % (42.0-52.0); LYMPHOCYTES # (AUTO) 3.6 X10'3 (1.1-4.8); LYMPHOCYTES % (AUTO) 21.4 % (21-51); MEAN PLATELET VOLUME 6.6 FL (7.4-10.4); MONOCYTES # (AUTO) 1.7 X10'3 (0-0.9); MONOCYTES % (AUTO) 10.2 % (2-12); NEUTROPHILS # (AUTO) 9.5 X10'3 (1.8-7.7); NEUTROPHILS % (AUTO) 56.3 % (42-75); RED CELL DISTRIBUTION WIDTH 15.7 % (11.5-14.5)
[2024-09-13 03:15] LABS: ALANINE AMINOTRANSFERASE 42 U/L (12-78); ALBUMIN 1.9 G/DL (3.4-5.0); ALBUMIN/GLOBULIN RATIO 0.3 (1.1-1.5); ALKALINE PHOSPHATASE 92 IU/L (46-116); ANION GAP 7 (8-16); ASPARTATE AMINO TRANSFERASE 39 U/L (10-37); BILIRUBIN,TOTAL 0.2 MG/DL (0.1-1.0); BLOOD UREA NITROGEN 21 MG/DL (7-18); BUN/CREATININE RATIO 45.7 (10.0-20.0); CALCIUM 9.3 MG/DL (8.5-10.1); CHLORIDE 105 MMOL/L (99-107); CREATININE 0.46 MG/DL (0.60-1.10); GLUCOSE 115 MG/DL (70-104); MAGNESIUM 1.6 MG/DL (1.5-2.4); PHOSPHORUS 5.1 MG/DL (2.3-4.5); POTASSIUM 4.1 MMOL/L (3.5-5.1); SODIUM 143 MMOL/L (135-145); TOTAL CARBON DIOXIDE 30.7 MMOL/L (24-32); TOTAL PROTEIN 7.6 G/DL (6.4-8.2); TRIGLYCERIDES 514 MG/DL (20-135); eCRCL 225 ML/MIN; eGFR > 90 ML/MIN
[2024-09-13 03:37] LABS: PLATELET ESTIMATE INCREASED; TOTAL CELLS COUNTED 100
[2024-09-13 03:50] LABS: ABG HCO3 26.1 mmol/L (21.0-28.0); ABG PCO2 (T) 40.6 mmHg (35.0-48.0); ABG PH (T) 7.431 (7.350-7.450); ABG PO2 (T) 72.9 mmHg (83.0-108.0); ALLEN'S TEST Modified; FMetHb 0.3 % (0.0-1.5); FO2Hb 92.7 % (94.0-98.0); MODE CMV PRVC IT 0.85; PATIENT TEMPERATURE 37.9; RESPIRATORY RATE 18 b/min; TIDAL VOLUME 450 mL
[2024-09-13] MEDS: enoxaparin 40mg/0.4ml syringe SUBCUT SCH (10:47)
[2024-09-13] MEDS: metoprolol tartrate 50mg tablet PO ONE (13:22)
[2024-09-14] VITALS (36 sets, daily range): BP systolic 15–156; BP diastolic 57–105; PULSE 92–128; RESP 15–48; O2SAT 92–96
[2024-09-14 03:49] LABS: ABG BASE EXCESS 0.1 mmol/L (-2.0-3.0); ABG HCO3 23.9 mmol/L (21.0-28.0); ABG OXYGEN SATURATION 97.4 % (94.0-98.0); ABG PCO2 (T) 35.2 mmHg (35.0-48.0); ABG PO2 (T) 92.4 mmHg (83.0-108.0); FCOHb 0.2 % (0.5-1.5); FHHb 2.6 % (0.0-5.0); FMetHb 0.3 % (0.0-1.5); FO2Hb 96.9 % (94.0-98.0); MODE VENT - PRVC; PEEP 10 cm H2O; RESPIRATORY RATE 18 b/min; TIDAL VOLUME 450 mL; TOTAL HEMOGLOBIN 9.3 G/dl (13.5-17.5)
[2024-09-14 04:34] LABS: BASOPHILS # (AUTO) 0.1 X10'3 (0-0.2); BASOPHILS % (AUTO) 0.6 % (0-1); EOSINOPHILS # (AUTO) 0.9 X10'3 (0-0.9); NEUTROPHILS # (AUTO) 13.8 X10'3 (1.8-7.7); WHITE BLOOD COUNT 18.6 X10'3 (4.5-11.0)
[2024-09-14 04:36] LABS: EOSINOPHILS % (AUTO) 4.7 % (0-6); HEMATOCRIT 26.6 % (42.0-52.0); HEMOGLOBIN 8.6 g/dl (14.0-17.9); LYMPHOCYTES # (AUTO) 2.3 X10'3 (1.1-4.8); LYMPHOCYTES % (AUTO) 12.4 % (21-51); MEAN CORPUSCULAR HEMOGLOBIN 29.7 PG (27.0-31.0); MEAN CORPUSCULAR HGB CONC 32.3 g/dL (33.0-36.5); MEAN CORPUSCULAR VOLUME 91.9 FL (78-98); MONOCYTES # (AUTO) 1.6 X10'3 (0-0.9); MONOCYTES % (AUTO) 8.3 % (2-12); PLATELET COUNT 799 X10'3 (140-440)
[2024-09-14 04:42] LABS: ALANINE AMINOTRANSFERASE 34 U/L (12-78); ALBUMIN 1.9 G/DL (3.4-5.0); ALBUMIN/GLOBULIN RATIO 0.4 (1.1-1.5); ALKALINE PHOSPHATASE 76 IU/L (46-116); ANION GAP 10 (8-16); ASPARTATE AMINO TRANSFERASE 36 U/L (10-37); BILIRUBIN,TOTAL 0.3 MG/DL (0.1-1.0); BLOOD UREA NITROGEN 21 MG/DL (7-18); BUN/CREATININE RATIO 41.2 (10.0-20.0); CALCIUM 9.1 MG/DL (8.5-10.1); CHLORIDE 107 MMOL/L (99-107); CREATININE 0.51 MG/DL (0.60-1.10); GLUCOSE 126 MG/DL (70-104); MAGNESIUM 1.5 MG/DL (1.5-2.4); PHOSPHORUS 4.9 MG/DL (2.3-4.5); POTASSIUM 3.8 MMOL/L (3.5-5.1); SODIUM 145 MMOL/L (135-145); TOTAL CARBON DIOXIDE 27.7 MMOL/L (24-32); eCRCL 203 ML/MIN; eGFR > 90 ML/MIN
[2024-09-14 05:32] LABS: TOTAL CELLS COUNTED 100
[2024-09-14 05:33] LABS: PLATELET ESTIMATE INCREASED
[2024-09-14 05:34] LABS: ANISOCYTOSIS 1+
[2024-09-14] MEDS: quetiapine 100mg tablet PO SCH (13:17)
[2024-09-14] MEDS: dexmedetomidin/NS 400mcg/100ml 100 ML IV SCH (22:33)
[2024-09-15] VITALS (32 sets, daily range): BP systolic 93–137; BP diastolic 49–84; PULSE 74–106; RESP 14–40; O2SAT 80–96
[2024-09-15 03:30] LABS: ABG BASE EXCESS -1.1 mmol/L (-2.0-3.0); ABG HCO3 22.6 mmol/L (21.0-28.0); ABG OXYGEN SATURATION 93.1 % (94.0-98.0); ABG PCO2 (T) 35.8 mmHg (35.0-48.0); ABG PH (T) 7.423 (7.350-7.450); ABG PO2 (T) 73.7 mmHg (83.0-108.0); FCOHb 0.2 % (0.5-1.5); FHHb 6.9 % (0.0-5.0); FMetHb 0.3 % (0.0-1.5); FO2Hb 92.6 % (94.0-98.0); MODE VENT - PRVC; PATIENT TEMPERATURE 38.4; PEEP 5 cm H2O; RESPIRATORY RATE 18 b/min; TIDAL VOLUME 450 mL; TOTAL HEMOGLOBIN 9.8 G/dl (13.5-17.5)
[2024-09-15 03:31] LABS: ALANINE AMINOTRANSFERASE 34 U/L (12-78); ALBUMIN 2.2 G/DL (3.4-5.0); ALBUMIN/GLOBULIN RATIO 0.4 (1.1-1.5); ALKALINE PHOSPHATASE 69 IU/L (46-116); ANION GAP 9 (8-16); ASPARTATE AMINO TRANSFERASE 27 U/L (10-37); BILIRUBIN,TOTAL 0.3 MG/DL (0.1-1.0); BLOOD UREA NITROGEN 14 MG/DL (7-18); BUN/CREATININE RATIO 35.9 (10.0-20.0); CALCIUM 9.5 MG/DL (8.5-10.1); CHLORIDE 106 MMOL/L (99-107); CREATININE 0.39 MG/DL (0.60-1.10); GLUCOSE 117 MG/DL (70-104); MAGNESIUM 1.7 MG/DL (1.5-2.4); PHOSPHORUS 5.3 MG/DL (2.3-4.5); POTASSIUM 3.3 MMOL/L (3.5-5.1); SODIUM 143 MMOL/L (135-145); TOTAL CARBON DIOXIDE 27.9 MMOL/L (24-32); TOTAL PROTEIN 7.6 G/DL (6.4-8.2); eCRCL 266 ML/MIN; eGFR > 90 ML/MIN
[2024-09-15 03:34] LABS: BASOPHILS # (AUTO) 0.1 X10'3 (0-0.2); BASOPHILS % (AUTO) 0.6 % (0-1); EOSINOPHILS # (AUTO) 0.8 X10'3 (0-0.9); EOSINOPHILS % (AUTO) 5.6 % (0-6); HEMATOCRIT 26.7 % (42.0-52.0); HEMOGLOBIN 8.6 g/dl (14.0-17.9); LYMPHOCYTES # (AUTO) 3.2 X10'3 (1.1-4.8); LYMPHOCYTES % (AUTO) 23.3 % (21-51); MEAN CORPUSCULAR HEMOGLOBIN 29.8 PG (27.0-31.0); MEAN CORPUSCULAR HGB CONC 32.4 g/dL (33.0-36.5); MEAN CORPUSCULAR VOLUME 92.1 FL (78-98); MEAN PLATELET VOLUME 7.1 FL (7.4-10.4); MONOCYTES # (AUTO) 1.3 X10'3 (0-0.9); MONOCYTES % (AUTO) 9.7 % (2-12); NEUTROPHILS # (AUTO) 8.3 X10'3 (1.8-7.7); NEUTROPHILS % (AUTO) 60.8 % (42-75); PLATELET COUNT 767 X10'3 (140-440); RED BLOOD COUNT 2.89 X10'6 (4.70-6.10); RED CELL DISTRIBUTION WIDTH 15.2 % (11.5-14.5); WHITE BLOOD COUNT 13.7 X10'3 (4.5-11.0)
[2024-09-15 04:12] LABS: PLATELET ESTIMATE INCREASED; TOTAL CELLS COUNTED 100
[2024-09-15] MEDS: POTASSIUM CHLORIDE 20 MEQ/15 ML oral solution NG PRN (04:13)
[2024-09-15 04:14] LABS: LARGE PLATELETS FEW
[2024-09-15] MEDS: COMMUNICATION ORDER 1 EA MISC MC ONE ×2 (07:25→07:50)
[2024-09-16] VITALS (30 sets, daily range): BP systolic 104–150; BP diastolic 67–101; PULSE 78–129; RESP 12–33; O2SAT 90–95
[2024-09-16 02:47] LABS: ABG BASE EXCESS 1.3 mmol/L (-2.0-3.0); ABG HCO3 24.2 mmol/L (21.0-28.0); ABG PCO2 (T) 33.6 mmHg (35.0-48.0); ABG PH (T) 7.479 (7.350-7.450); ABG PO2 (T) 86.1 mmHg (83.0-108.0); ALLEN'S TEST POSITIVE; FCOHb 0.2 % (0.5-1.5); FLOW 15 L/min; FMetHb 0.3 % (0.0-1.5); FO2Hb 95.5 % (94.0-98.0); MODE NASAL CANNULA; PATIENT TEMPERATURE 38.1; TOTAL HEMOGLOBIN 10.6 G/dl (13.5-17.5)
[2024-09-16 03:08] LABS: BASOPHILS # (AUTO) 0.1 X10'3 (0-0.2); EOSINOPHILS # (AUTO) 0.1 X10'3 (0-0.9); EOSINOPHILS % (AUTO) 1.1 % (0-6); HEMOGLOBIN 9.7 g/dl (14.0-17.9); MONOCYTES # (AUTO) 1.4 X10'3 (0-0.9); NEUTROPHILS # (AUTO) 8.1 X10'3 (1.8-7.7); RED CELL DISTRIBUTION WIDTH 15.5 % (11.5-14.5)
[2024-09-16 03:09] LABS: HEMATOCRIT 29.7 % (42.0-52.0); LYMPHOCYTES # (AUTO) 3.6 X10'3 (1.1-4.8); LYMPHOCYTES % (AUTO) 26.8 % (21-51); MEAN CORPUSCULAR HEMOGLOBIN 29.5 PG (27.0-31.0); MEAN CORPUSCULAR HGB CONC 32.6 g/dL (33.0-36.5); MEAN CORPUSCULAR VOLUME 90.4 FL (78-98); MEAN PLATELET VOLUME 6.9 FL (7.4-10.4); MONOCYTES % (AUTO) 10.2 % (2-12); NEUTROPHILS % (AUTO) 60.9 % (42-75); PLATELET COUNT 787 X10'3 (140-440); RED BLOOD COUNT 3.28 X10'6 (4.70-6.10); WHITE BLOOD COUNT 13.3 X10'3 (4.5-11.0)
[2024-09-16 03:23] LABS: ALANINE AMINOTRANSFERASE 38 U/L (12-78); ALBUMIN 2.5 G/DL (3.4-5.0); ALBUMIN/GLOBULIN RATIO 0.4 (1.1-1.5); ALKALINE PHOSPHATASE 73 IU/L (46-116); ANION GAP 8 (8-16); ASPARTATE AMINO TRANSFERASE 25 U/L (10-37); BILIRUBIN,TOTAL 0.5 MG/DL (0.1-1.0); BLOOD UREA NITROGEN 19 MG/DL (7-18); BUN/CREATININE RATIO 42.2 (10.0-20.0); CALCIUM 9.6 MG/DL (8.5-10.1); CHLORIDE 101 MMOL/L (99-107); CREATININE 0.45 MG/DL (0.60-1.10); GLUCOSE 114 MG/DL (70-104); MAGNESIUM 1.5 MG/DL (1.5-2.4); PHOSPHORUS 5.2 MG/DL (2.3-4.5); SODIUM 141 MMOL/L (135-145); TOTAL CARBON DIOXIDE 32.3 MMOL/L (24-32); TOTAL PROTEIN 8.3 G/DL (6.4-8.2); eCRCL 230 ML/MIN; eGFR > 90 ML/MIN
[2024-09-16 03:26] LABS: POTASSIUM 2.8 MMOL/L (3.5-5.1)
[2024-09-16 03:44] LABS: TOTAL CELLS COUNTED 100
[2024-09-16 03:45] LABS: PLATELET ESTIMATE INCREASED
[2024-09-16 03:47] LABS: STOMATOCYTES 2+
[2024-09-17] VITALS (24 sets, daily range): BP systolic 118–135; BP diastolic 69–91; PULSE 74–175; RESP 16–30; TEMP 97.3–98.5; O2SAT 90–100
[2024-09-17 02:21] LABS: BASOPHILS # (AUTO) 0.1 X10'3 (0-0.2); BASOPHILS % (AUTO) 1.3 % (0-1); EOSINOPHILS # (AUTO) 0.1 X10'3 (0-0.9); EOSINOPHILS % (AUTO) 0.8 % (0-6); HEMATOCRIT 29.1 % (42.0-52.0); HEMOGLOBIN 9.6 g/dl (14.0-17.9); LYMPHOCYTES % (AUTO) 26.9 % (21-51); MEAN CORPUSCULAR HEMOGLOBIN 29.6 PG (27.0-31.0); MEAN CORPUSCULAR HGB CONC 32.9 g/dL (33.0-36.5); MEAN PLATELET VOLUME 6.9 FL (7.4-10.4); MONOCYTES # (AUTO) 1.3 X10'3 (0-0.9); MONOCYTES % (AUTO) 11.9 % (2-12); NEUTROPHILS # (AUTO) 6.6 X10'3 (1.8-7.7); NEUTROPHILS % (AUTO) 59.1 % (42-75); PLATELET COUNT 724 X10'3 (140-440); RED BLOOD COUNT 3.23 X10'6 (4.70-6.10); RED CELL DISTRIBUTION WIDTH 15.2 % (11.5-14.5); WHITE BLOOD COUNT 11.2 X10'3 (4.5-11.0)
[2024-09-17 02:34] LABS: ALANINE AMINOTRANSFERASE 45 U/L (12-78); ALBUMIN 2.6 G/DL (3.4-5.0); ALBUMIN/GLOBULIN RATIO 0.5 (1.1-1.5); ALKALINE PHOSPHATASE 67 IU/L (46-116); ANION GAP 7 (8-16); ASPARTATE AMINO TRANSFERASE 25 U/L (10-37); BILIRUBIN,TOTAL 0.5 MG/DL (0.1-1.0); BLOOD UREA NITROGEN 19 MG/DL (7-18); BUN/CREATININE RATIO 43.2 (10.0-20.0); CALCIUM 9.9 MG/DL (8.5-10.1); CHLORIDE 99 MMOL/L (99-107); CREATININE 0.44 MG/DL (0.60-1.10); GLUCOSE 102 MG/DL (70-104); MAGNESIUM 1.5 MG/DL (1.5-2.4); PHOSPHORUS 5.1 MG/DL (2.3-4.5); SODIUM 142 MMOL/L (135-145); TOTAL CARBON DIOXIDE 35.6 MMOL/L (24-32); TOTAL PROTEIN 8.1 G/DL (6.4-8.2); TRIGLYCERIDES 265 MG/DL (20-135); eCRCL 235 ML/MIN; eGFR > 90 ML/MIN
[2024-09-17 02:37] LABS: PLATELET ESTIMATE INCREASED; TOTAL CELLS COUNTED 100
[2024-09-17 02:40] LABS: POTASSIUM 2.7 MMOL/L (3.5-5.1)
[2024-09-17 03:06] LABS: D-DIMER 11.96 MG/L FEU (0-0.50)
[2024-09-17] MEDS: furosemide 40mg/4ml inj IV SCH (08:00)
[2024-09-17 17:51] LABS: ALBUMIN 2.6 G/DL (3.4-5.0); ANION GAP 11 (8-16); BLOOD UREA NITROGEN 17 MG/DL (7-18); BUN/CREATININE RATIO 54.8 (10.0-20.0); CALCIUM 9.8 MG/DL (8.5-10.1); CHLORIDE 103 MMOL/L (99-107); CREATININE 0.31 MG/DL (0.60-1.10); GLUCOSE 96 MG/DL (70-104); POTASSIUM 4.7 MMOL/L (3.5-5.1); SODIUM 140 MMOL/L (135-145); TOTAL CARBON DIOXIDE 26.5 MMOL/L (24-32); eCRCL 334 ML/MIN; eGFR > 90 ML/MIN
[2024-09-17] MEDS: lactose-reduced food (Ensure Enlive) - 237ml bottle PO SCH (18:00)
[2024-09-17 23:17] LABS: ALBUMIN 2.7 G/DL (3.4-5.0); ANION GAP 8 (8-16); BLOOD UREA NITROGEN 15 MG/DL (7-18); BUN/CREATININE RATIO 45.5 (10.0-20.0); CHLORIDE 104 MMOL/L (99-107); CREATININE 0.33 MG/DL (0.60-1.10); GLUCOSE 103 MG/DL (70-104); POTASSIUM 4.2 MMOL/L (3.5-5.1); SODIUM 142 MMOL/L (135-145); TOTAL CARBON DIOXIDE 30.2 MMOL/L (24-32); eCRCL 314 ML/MIN; eGFR > 90 ML/MIN
[2024-09-18] VITALS (12 sets, daily range): BP systolic 123–136; BP diastolic 79–93; PULSE 83–118; RESP 16–38; TEMP 98–99.6; O2SAT 90–96
[2024-09-18 06:03] LABS: BASOPHILS # (AUTO) 0.2 X10'3 (0-0.2); BASOPHILS % (AUTO) 1.3 % (0-1); EOSINOPHILS # (AUTO) 0.2 X10'3 (0-0.9); HEMOGLOBIN 10.1 g/dl (14.0-17.9); LYMPHOCYTES # (AUTO) 2.7 X10'3 (1.1-4.8); MONOCYTES # (AUTO) 1.6 X10'3 (0-0.9)
[2024-09-18 06:06] LABS: HEMATOCRIT 30.7 % (42.0-52.0); LYMPHOCYTES % (AUTO) 22.8 % (21-51); MEAN CORPUSCULAR HEMOGLOBIN 29.7 PG (27.0-31.0); MEAN CORPUSCULAR HGB CONC 32.8 g/dL (33.0-36.5); MEAN CORPUSCULAR VOLUME 90.7 FL (78-98); MEAN PLATELET VOLUME 7.5 FL (7.4-10.4); MONOCYTES % (AUTO) 13.7 % (2-12); NEUTROPHILS # (AUTO) 7.1 X10'3 (1.8-7.7); NEUTROPHILS % (AUTO) 60.2 % (42-75); PLATELET COUNT 696 X10'3 (140-440); RED BLOOD COUNT 3.39 X10'6 (4.70-6.10); RED CELL DISTRIBUTION WIDTH 15.8 % (11.5-14.5); WHITE BLOOD COUNT 11.8 X10'3 (4.5-11.0)
[2024-09-18 06:20] LABS: ALANINE AMINOTRANSFERASE 36 U/L (12-78); ALBUMIN 2.8 G/DL (3.4-5.0); ALBUMIN/GLOBULIN RATIO 0.5 (1.1-1.5); ALKALINE PHOSPHATASE 67 IU/L (46-116); ANION GAP 8 (8-16); ASPARTATE AMINO TRANSFERASE 21 U/L (10-37); BILIRUBIN,TOTAL 0.4 MG/DL (0.1-1.0); BLOOD UREA NITROGEN 13 MG/DL (7-18); BUN/CREATININE RATIO 38.2 (10.0-20.0); CALCIUM 9.9 MG/DL (8.5-10.1); CHLORIDE 101 MMOL/L (99-107); CREATININE 0.34 MG/DL (0.60-1.10); GLUCOSE 109 MG/DL (70-104); MAGNESIUM 1.6 MG/DL (1.5-2.4); PHOSPHORUS 5.4 MG/DL (2.3-4.5); POTASSIUM 4.5 MMOL/L (3.5-5.1); SODIUM 139 MMOL/L (135-145); TOTAL CARBON DIOXIDE 30.3 MMOL/L (24-32); TOTAL PROTEIN 8.2 G/DL (6.4-8.2); TRIGLYCERIDES 330 MG/DL (20-135); eCRCL 305 ML/MIN; eGFR > 90 ML/MIN
[2024-09-18] MEDS: pantoprazole 40 MG vial IV SCH (08:36)
[2024-09-18 10:34] LABS: ALBUMIN 3.2 G/DL (3.4-5.0); ANION GAP 10 (8-16); BLOOD UREA NITROGEN 14 MG/DL (7-18); BUN/CREATININE RATIO 30.4 (10.0-20.0); CALCIUM 10.4 MG/DL (8.5-10.1); CHLORIDE 98 MMOL/L (99-107); CREATININE 0.46 MG/DL (0.60-1.10); GLUCOSE 119 MG/DL (70-104); POTASSIUM 4.8 MMOL/L (3.5-5.1); SODIUM 139 MMOL/L (135-145); TOTAL CARBON DIOXIDE 30.9 MMOL/L (24-32); eCRCL 225 ML/MIN; eGFR > 90 ML/MIN
[2024-09-18] MEDS ORDERED: iohexol 350MG/ML 100ml bottle IV ONE (13:05)
[2024-09-18] MEDS: lactobacillus rhamnosus 10,000 MMU CELLS/CAPSULE PO SCH (14:01)
[2024-09-18] MEDS: vancomycin 250MG/10ML UD oral solution 10ML BOTTLE PO SCH (14:02)
[2024-09-18 17:28] LABS: BLOOD UREA NITROGEN 14 MG/DL (7-18); BUN/CREATININE RATIO 32.6 (10.0-20.0); CALCIUM 9.8 MG/DL (8.5-10.1); CREATININE 0.43 MG/DL (0.60-1.10); GLUCOSE 110 MG/DL (70-104); TOTAL CARBON DIOXIDE 31.6 MMOL/L (24-32); eCRCL 241 ML/MIN; eGFR > 90 ML/MIN
[2024-09-18 17:32] LABS: ANION GAP 9 (8-16); CHLORIDE 98 MMOL/L (99-107); SODIUM 139 MMOL/L (135-145)
[2024-09-18] MEDS ORDERED: LORazepam 2 mg/ml vial IV PRN (20:00)
[2024-09-18 22:14] LABS: ALBUMIN 2.9 G/DL (3.4-5.0); ANION GAP 8 (8-16); BLOOD UREA NITROGEN 14 MG/DL (7-18); BUN/CREATININE RATIO 31.1 (10.0-20.0); CALCIUM 10.1 MG/DL (8.5-10.1); CHLORIDE 98 MMOL/L (99-107); CREATININE 0.45 MG/DL (0.60-1.10); GLUCOSE 117 MG/DL (70-104); POTASSIUM 3.8 MMOL/L (3.5-5.1); SODIUM 139 MMOL/L (135-145); TOTAL CARBON DIOXIDE 32.6 MMOL/L (24-32); eCRCL 230 ML/MIN; eGFR > 90 ML/MIN
[2024-09-19] VITALS (7 sets, daily range): BP systolic 118–134; BP diastolic 79–84; PULSE 70–92; RESP 16–20; TEMP 97.6–98.5; O2SAT 94–97
[2024-09-19 06:26] LABS: BASOPHILS # (AUTO) 0.1 X10'3 (0-0.2); BASOPHILS % (AUTO) 1.4 % (0-1); EOSINOPHILS # (AUTO) 0.4 X10'3 (0-0.9); HEMOGLOBIN 10.2 g/dl (14.0-17.9); MEAN PLATELET VOLUME 7.4 FL (7.4-10.4)
[2024-09-19 06:30] LABS: EOSINOPHILS % (AUTO) 4.1 % (0-6); HEMATOCRIT 30.8 % (42.0-52.0); LYMPHOCYTES # (AUTO) 2.8 X10'3 (1.1-4.8); LYMPHOCYTES % (AUTO) 26.8 % (21-51); MEAN CORPUSCULAR HEMOGLOBIN 29.7 PG (27.0-31.0); MEAN CORPUSCULAR HGB CONC 33.1 g/dL (33.0-36.5); MEAN CORPUSCULAR VOLUME 89.8 FL (78-98); MONOCYTES # (AUTO) 1.3 X10'3 (0-0.9); MONOCYTES % (AUTO) 12.4 % (2-12); NEUTROPHILS # (AUTO) 5.8 X10'3 (1.8-7.7); NEUTROPHILS % (AUTO) 55.3 % (42-75); PLATELET COUNT 660 X10'3 (140-440); RED BLOOD COUNT 3.43 X10'6 (4.70-6.10); WHITE BLOOD COUNT 10.5 X10'3 (4.5-11.0)
[2024-09-19 06:39] LABS: ALANINE AMINOTRANSFERASE 37 U/L (12-78); ALBUMIN 2.9 G/DL (3.4-5.0); ALBUMIN/GLOBULIN RATIO 0.6 (1.1-1.5); ALKALINE PHOSPHATASE 71 IU/L (46-116); ANION GAP 6 (8-16); ASPARTATE AMINO TRANSFERASE 21 U/L (10-37); BILIRUBIN,TOTAL 0.5 MG/DL (0.1-1.0); BLOOD UREA NITROGEN 12 MG/DL (7-18); BUN/CREATININE RATIO 28.6 (10.0-20.0); CALCIUM 9.9 MG/DL (8.5-10.1); CHLORIDE 98 MMOL/L (99-107); CREATININE 0.42 MG/DL (0.60-1.10); GLUCOSE 122 MG/DL (70-104); MAGNESIUM 1.4 MG/DL (1.5-2.4); PHOSPHORUS 6.1 MG/DL (2.3-4.5); POTASSIUM 3.9 MMOL/L (3.5-5.1); SODIUM 138 MMOL/L (135-145); TOTAL CARBON DIOXIDE 33.8 MMOL/L (24-32); eCRCL 247 ML/MIN; eGFR > 90 ML/MIN
[2024-09-19] MEDS: furosemide 40mg/4ml inj IV SCH (07:54)
[2024-09-20 08:00] VITALS: RESP 16; O2SAT 94
[2024-09-20 08:47] LABS: BASOPHILS # (AUTO) 0.1 X10'3 (0-0.2); BASOPHILS % (AUTO) 0.8 % (0-1); EOSINOPHILS # (AUTO) 0.8 X10'3 (0-0.9); EOSINOPHILS % (AUTO) 7.7 % (0-6); HEMOGLOBIN 10.1 g/dl (14.0-17.9); LYMPHOCYTES # (AUTO) 2.4 X10'3 (1.1-4.8); LYMPHOCYTES % (AUTO) 23.4 % (21-51)
[2024-09-20 08:51] LABS: HEMATOCRIT 30.5 % (42.0-52.0); MEAN CORPUSCULAR HEMOGLOBIN 29.8 PG (27.0-31.0); MEAN CORPUSCULAR VOLUME 90.1 FL (78-98); MEAN PLATELET VOLUME 7.6 FL (7.4-10.4); MONOCYTES % (AUTO) 10.3 % (2-12); NEUTROPHILS # (AUTO) 5.9 X10'3 (1.8-7.7); NEUTROPHILS % (AUTO) 57.8 % (42-75); PLATELET COUNT 628 X10'3 (140-440); RED BLOOD COUNT 3.39 X10'6 (4.70-6.10); RED CELL DISTRIBUTION WIDTH 15.8 % (11.5-14.5); WHITE BLOOD COUNT 10.2 X10'3 (4.5-11.0)
[2024-09-20 08:58] LABS: ALANINE AMINOTRANSFERASE 35 U/L (12-78); ALBUMIN 2.9 G/DL (3.4-5.0); ALBUMIN/GLOBULIN RATIO 0.6 (1.1-1.5); ALKALINE PHOSPHATASE 68 IU/L (46-116); ANION GAP 7 (8-16); ASPARTATE AMINO TRANSFERASE 19 U/L (10-37); BILIRUBIN,TOTAL 0.5 MG/DL (0.1-1.0); BLOOD UREA NITROGEN 8 MG/DL (7-18); CALCIUM 9.7 MG/DL (8.5-10.1); CHLORIDE 96 MMOL/L (99-107); CREATININE 0.42 MG/DL (0.60-1.10); GLUCOSE 106 MG/DL (70-104); POTASSIUM 4.2 MMOL/L (3.5-5.1); SODIUM 135 MMOL/L (135-145); TOTAL CARBON DIOXIDE 31.9 MMOL/L (24-32); TOTAL PROTEIN 7.9 G/DL (6.4-8.2); eCRCL 240 ML/MIN; eGFR > 90 ML/MIN
[2024-09-20 09:01] LABS: PHOSPHORUS 5.6 MG/DL (2.3-4.5)
[2024-09-20 10:00] VITALS: BP 116/78; PULSE 82; RESP 18; TEMP 98.4; O2SAT 97
[2024-09-20 11:51] VITALS: PULSE 78; RESP 18; O2SAT 98
[2024-09-20] MEDS ORDERED: acetaminophen 325mg/10.15ml oral unit dose solution PO PRN (14:24)
[2024-09-20] MEDS ORDERED: DEXTROSE 15 GM of carb/4 tabs (each vial/BOTTLE has 4 tablets) PO PRN ×2 (14:25)
[2024-09-20] MEDS ORDERED: magnesium hydroxide 30ml (MOM) UD suspension PO PRN (14:26)
[2024-09-20] MEDS ORDERED: mag hydrox/Alum hydrox/simeth 30ml oral suspension PO PRN (14:26)
[2024-09-20] MEDS ORDERED: POTASSIUM CHLORIDE 20 MEQ/15 ML oral solution PO PRN (14:27)
[2024-09-20] MEDS ORDERED: MULTIVIT-MIN/FERROUS GLUCONATE 9 MG/15 ML LIQUID PO SCH (14:27)
[2024-09-20] MEDS ORDERED: acetaminophen 325mg tablet PO PRN (14:28)
[2024-09-20 18:30] VITALS: BP 114/78; PULSE 79; RESP 16; TEMP 98.1; O2SAT 97
[2024-09-20] MEDS: POTASSIUM CHLORIDE 20 MEQ/15 ML oral solution PO SCH (19:44)
[2024-09-20 22:00] VITALS: BP 110/71; PULSE 71; RESP 17; TEMP 98.2; O2SAT 98
[2024-09-21] VITALS (9 sets, daily range): BP systolic 113–125; BP diastolic 68–84; PULSE 55–109; RESP 14–18; TEMP 97.7–99; O2SAT 87–97
[2024-09-21] MEDS: furosemide 20 MG/2 ML vial IV SCH (10:21)
[2024-09-21] MEDS: metolazone 2.5mg tablet PO SCH (10:22)
[2024-09-21] MEDS: thiamine 100mg tablet PO SCH (10:23)
[2024-09-21] MEDS: pantoprazole 40mg Tablet.DR PO SCH (10:23)
[2024-09-21] MEDS: folic acid 1mg tablet PO SCH (10:23)
[2024-09-21] MEDS: multivitamins, therapeutics tablet PO SCH (10:24)
[2024-09-21 10:59] LABS: PHOSPHORUS 5.1 MG/DL (2.3-4.5)
[2024-09-21 13:34] LABS: ALANINE AMINOTRANSFERASE 33 U/L (12-78); ALBUMIN 3.1 G/DL (3.4-5.0); ALBUMIN/GLOBULIN RATIO 0.6 (1.1-1.5); ALKALINE PHOSPHATASE 72 IU/L (46-116); ASPARTATE AMINO TRANSFERASE 20 U/L (10-37); BILIRUBIN,TOTAL 0.3 MG/DL (0.1-1.0); BLOOD UREA NITROGEN 9 MG/DL (7-18); CALCIUM 9.4 MG/DL (8.5-10.1); GLUCOSE 120 MG/DL (70-104); POTASSIUM 3.9 MMOL/L (3.5-5.1); SODIUM 136 MMOL/L (135-145); TOTAL CARBON DIOXIDE 28.7 MMOL/L (24-32)
[2024-09-21 13:35] LABS: BASOPHILS # (AUTO) 0.1 X10'3 (0-0.2); EOSINOPHILS # (AUTO) 0.9 X10'3 (0-0.9); HEMOGLOBIN 10.8 g/dl (14.0-17.9); MEAN CORPUSCULAR VOLUME 89.8 FL (78-98); MEAN PLATELET VOLUME 7.9 FL (7.4-10.4)
[2024-09-21 13:36] LABS: BASOPHILS % (AUTO) 0.6 % (0-1); EOSINOPHILS % (AUTO) 8.4 % (0-6); HEMATOCRIT 32.8 % (42.0-52.0); LYMPHOCYTES # (AUTO) 3.1 X10'3 (1.1-4.8); LYMPHOCYTES % (AUTO) 27.3 % (21-51); MEAN CORPUSCULAR HEMOGLOBIN 29.6 PG (27.0-31.0); MEAN CORPUSCULAR HGB CONC 32.9 g/dL (33.0-36.5); MONOCYTES # (AUTO) 1.2 X10'3 (0-0.9); MONOCYTES % (AUTO) 10.2 % (2-12); NEUTROPHILS % (AUTO) 53.5 % (42-75); PLATELET COUNT 630 X10'3 (140-440); RED BLOOD COUNT 3.65 X10'6 (4.70-6.10); RED CELL DISTRIBUTION WIDTH 15.5 % (11.5-14.5); WHITE BLOOD COUNT 11.3 X10'3 (4.5-11.0)
[2024-09-21 13:37] LABS: ANION GAP 11 (8-16); BUN/CREATININE RATIO 23.7 (10.0-20.0); CHLORIDE 96 MMOL/L (99-107); CREATININE 0.38 MG/DL (0.60-1.10); eCRCL 266 ML/MIN; eGFR > 90 ML/MIN
[2024-09-22] VITALS (9 sets, daily range): BP systolic 108–118; BP diastolic 71–78; PULSE 78–109; RESP 16–20; TEMP 98.4–98.8; O2SAT 93–95
[2024-09-22 05:36] LABS: BASOPHILS # (AUTO) 0.1 X10'3 (0-0.2); EOSINOPHILS # (AUTO) 1.1 X10'3 (0-0.9); EOSINOPHILS % (AUTO) 10.5 % (0-6); HEMATOCRIT 33.3 % (42.0-52.0); HEMOGLOBIN 10.8 g/dl (14.0-17.9); LYMPHOCYTES # (AUTO) 2.9 X10'3 (1.1-4.8); LYMPHOCYTES % (AUTO) 28.7 % (21-51); MEAN CORPUSCULAR HEMOGLOBIN 29.2 PG (27.0-31.0); MEAN CORPUSCULAR HGB CONC 32.5 g/dL (33.0-36.5); MEAN CORPUSCULAR VOLUME 89.8 FL (78-98); MEAN PLATELET VOLUME 7.8 FL (7.4-10.4); MONOCYTES # (AUTO) 1.2 X10'3 (0-0.9); MONOCYTES % (AUTO) 11.4 % (2-12); NEUTROPHILS # (AUTO) 4.9 X10'3 (1.8-7.7); NEUTROPHILS % (AUTO) 48.4 % (42-75); PLATELET COUNT 593 X10'3 (140-440); RED BLOOD COUNT 3.71 X10'6 (4.70-6.10); RED CELL DISTRIBUTION WIDTH 15.3 % (11.5-14.5); WHITE BLOOD COUNT 10.1 X10'3 (4.5-11.0)
[2024-09-22 06:01] LABS: ALANINE AMINOTRANSFERASE 31 U/L (12-78); ALBUMIN 3.1 G/DL (3.4-5.0); ALBUMIN/GLOBULIN RATIO 0.6 (1.1-1.5); ALKALINE PHOSPHATASE 68 IU/L (46-116); ANION GAP 9 (8-16); ASPARTATE AMINO TRANSFERASE 18 U/L (10-37); BILIRUBIN,TOTAL 0.3 MG/DL (0.1-1.0); BLOOD UREA NITROGEN 9 MG/DL (7-18); CALCIUM 9.9 MG/DL (8.5-10.1); CHLORIDE 97 MMOL/L (99-107); CREATININE 0.41 MG/DL (0.60-1.10); GLUCOSE 111 MG/DL (70-104); POTASSIUM 4.3 MMOL/L (3.5-5.1); SODIUM 135 MMOL/L (135-145); TOTAL CARBON DIOXIDE 29.5 MMOL/L (24-32); TOTAL PROTEIN 8.1 G/DL (6.4-8.2); eCRCL 246 ML/MIN; eGFR > 90 ML/MIN
[2024-09-22] MEDS: metoprolol tartrate 50mg tablet PO SCH (12:14)
[2024-09-22 15:20] LABS: CHOL/HDL RATIO 8.8 (0.00-4.99); CHOLESTEROL 272 MG/DL (0-200); HDL CHOLESTEROL 31 MG/DL (35-60); LDL CHOLESTEROL 193 MG/DL (50-100); TRIGLYCERIDES 316 MG/DL (20-135)
[2024-09-23] VITALS (8 sets, daily range): BP systolic 107–126; BP diastolic 68–87; PULSE 87–125; RESP 16–22; TEMP 97.8–98.8; O2SAT 93–97
[2024-09-23 06:52] LABS: BASOPHILS # (AUTO) 0.1 X10'3 (0-0.2); LYMPHOCYTES # (AUTO) 2.9 X10'3 (1.1-4.8); WHITE BLOOD COUNT 13.8 X10'3 (4.5-11.0)
[2024-09-23 06:55] LABS: BASOPHILS % (AUTO) 0.8 % (0-1); EOSINOPHILS # (AUTO) 1.3 X10'3 (0-0.9); EOSINOPHILS % (AUTO) 9.8 % (0-6); HEMATOCRIT 33.6 % (42.0-52.0); LYMPHOCYTES % (AUTO) 21.3 % (21-51); MEAN CORPUSCULAR HEMOGLOBIN 29.3 PG (27.0-31.0); MEAN CORPUSCULAR HGB CONC 32.7 g/dL (33.0-36.5); MEAN CORPUSCULAR VOLUME 89.7 FL (78-98); MONOCYTES # (AUTO) 1.2 X10'3 (0-0.9); MONOCYTES % (AUTO) 9.1 % (2-12); NEUTROPHILS # (AUTO) 8.1 X10'3 (1.8-7.7); PLATELET COUNT 612 X10'3 (140-440); RED BLOOD COUNT 3.75 X10'6 (4.70-6.10); RED CELL DISTRIBUTION WIDTH 15.7 % (11.5-14.5)
[2024-09-23 07:12] LABS: ALANINE AMINOTRANSFERASE 28 U/L (12-78); ALBUMIN 3.2 G/DL (3.4-5.0); ALBUMIN/GLOBULIN RATIO 0.7 (1.1-1.5); ALKALINE PHOSPHATASE 69 IU/L (46-116); ANION GAP 8 (8-16); ASPARTATE AMINO TRANSFERASE 18 U/L (10-37); BILIRUBIN,TOTAL 0.3 MG/DL (0.1-1.0); BLOOD UREA NITROGEN 8 MG/DL (7-18); BUN/CREATININE RATIO 20.5 (10.0-20.0); CALCIUM 9.9 MG/DL (8.5-10.1); CHLORIDE 99 MMOL/L (99-107); CREATININE 0.39 MG/DL (0.60-1.10); GLUCOSE 111 MG/DL (70-104); POTASSIUM 4.1 MMOL/L (3.5-5.1); SODIUM 136 MMOL/L (135-145); TOTAL CARBON DIOXIDE 28.7 MMOL/L (24-32); eCRCL 259 ML/MIN; eGFR > 90 ML/MIN
[2024-09-23 16:32] LABS: MAGNESIUM 1.4 MG/DL (1.5-2.4); PHOSPHORUS 5.1 MG/DL (2.3-4.5)
[2024-09-23] MEDS: metoprolol tartrate 50mg tablet PO SCH (17:24)
[2024-09-23] MEDS ORDERED: metoprolol tartrate 50mg tablet PO SCH (20:00)
[2024-09-24] VITALS (7 sets, daily range): BP systolic 112–125; BP diastolic 78–85; PULSE 89–100; RESP 17–22; TEMP 98.3–99.4; O2SAT 92–99
[2024-09-24 06:11] LABS: BASOPHILS # (AUTO) 0.1 X10'3 (0-0.2); BASOPHILS % (AUTO) 0.8 % (0-1); EOSINOPHILS # (AUTO) 1.3 X10'3 (0-0.9); EOSINOPHILS % (AUTO) 9.4 % (0-6); HEMATOCRIT 32.7 % (42.0-52.0); HEMOGLOBIN 10.9 g/dl (14.0-17.9); LYMPHOCYTES # (AUTO) 3.5 X10'3 (1.1-4.8); LYMPHOCYTES % (AUTO) 25.8 % (21-51); MEAN CORPUSCULAR HEMOGLOBIN 29.6 PG (27.0-31.0); MEAN CORPUSCULAR HGB CONC 33.2 g/dL (33.0-36.5); MEAN PLATELET VOLUME 7.7 FL (7.4-10.4); MONOCYTES # (AUTO) 1.2 X10'3 (0-0.9); MONOCYTES % (AUTO) 8.5 % (2-12); NEUTROPHILS # (AUTO) 7.5 X10'3 (1.8-7.7); NEUTROPHILS % (AUTO) 55.5 % (42-75); PLATELET COUNT 552 X10'3 (140-440); RED BLOOD COUNT 3.67 X10'6 (4.70-6.10); RED CELL DISTRIBUTION WIDTH 15.3 % (11.5-14.5); WHITE BLOOD COUNT 13.6 X10'3 (4.5-11.0)
[2024-09-24 07:15] LABS: ANION GAP 10 (8-16); BLOOD UREA NITROGEN 5 MG/DL (7-18); BUN/CREATININE RATIO 10.4 (10.0-20.0); CALCIUM 9.6 MG/DL (8.5-10.1); CHLORIDE 100 MMOL/L (99-107); CREATININE 0.48 MG/DL (0.60-1.10); GLUCOSE 102 MG/DL (70-104); POTASSIUM 4.3 MMOL/L (3.5-5.1); SODIUM 137 MMOL/L (135-145); TOTAL CARBON DIOXIDE 27.1 MMOL/L (24-32); eCRCL 210 ML/MIN; eGFR > 90 ML/MIN
[2024-09-24 07:16] LABS: ALANINE AMINOTRANSFERASE 23 U/L (12-78); ALBUMIN 3.2 G/DL (3.4-5.0); ALBUMIN/GLOBULIN RATIO 0.7 (1.1-1.5); ALKALINE PHOSPHATASE 70 IU/L (46-116); ASPARTATE AMINO TRANSFERASE 17 U/L (10-37); BILIRUBIN,TOTAL 0.3 MG/DL (0.1-1.0); MAGNESIUM 1.5 MG/DL (1.5-2.4); TRIGLYCERIDES 201 MG/DL (20-135)
[2024-09-25 06:00] VITALS: BP 115/76; PULSE 106; RESP 18; TEMP 98.4; O2SAT 90
[2024-09-25 06:14] LABS: BASOPHILS # (AUTO) 0.1 X10'3 (0-0.2); BASOPHILS % (AUTO) 0.7 % (0-1); EOSINOPHILS # (AUTO) 1.3 X10'3 (0-0.9); HEMATOCRIT 34.2 % (42.0-52.0); LYMPHOCYTES # (AUTO) 3.6 X10'3 (1.1-4.8); LYMPHOCYTES % (AUTO) 24.3 % (21-51); MEAN CORPUSCULAR HEMOGLOBIN 28.9 PG (27.0-31.0); MEAN CORPUSCULAR HGB CONC 32.1 g/dL (33.0-36.5); MEAN PLATELET VOLUME 7.7 FL (7.4-10.4); MONOCYTES # (AUTO) 1.3 X10'3 (0-0.9); MONOCYTES % (AUTO) 8.8 % (2-12); NEUTROPHILS # (AUTO) 8.4 X10'3 (1.8-7.7); NEUTROPHILS % (AUTO) 57.2 % (42-75); PLATELET COUNT 509 X10'3 (140-440); RED BLOOD COUNT 3.79 X10'6 (4.70-6.10); RED CELL DISTRIBUTION WIDTH 15.6 % (11.5-14.5); WHITE BLOOD COUNT 14.8 X10'3 (4.5-11.0)
[2024-09-25 06:26] LABS: ALANINE AMINOTRANSFERASE 27 U/L (12-78); ALBUMIN/GLOBULIN RATIO 0.6 (1.1-1.5); ALKALINE PHOSPHATASE 69 IU/L (46-116); ANION GAP 9 (8-16); ASPARTATE AMINO TRANSFERASE 17 U/L (10-37); BILIRUBIN,TOTAL 0.3 MG/DL (0.1-1.0); BLOOD UREA NITROGEN 7 MG/DL (7-18); BUN/CREATININE RATIO 17.1 (10.0-20.0); CALCIUM 9.5 MG/DL (8.5-10.1); CHLORIDE 100 MMOL/L (99-107); CREATININE 0.41 MG/DL (0.60-1.10); GLUCOSE 109 MG/DL (70-104); MAGNESIUM 1.5 MG/DL (1.5-2.4); PHOSPHORUS 5.8 MG/DL (2.3-4.5); SODIUM 137 MMOL/L (135-145); TOTAL CARBON DIOXIDE 27.6 MMOL/L (24-32); TOTAL PROTEIN 7.7 G/DL (6.4-8.2); TRIGLYCERIDES 180 MG/DL (20-135); eCRCL 246 ML/MIN; eGFR > 90 ML/MIN
[2024-09-25 08:45] VITALS: RESP 18; O2SAT 90
[2024-09-25 10:03] LABS: BASOPHILS # (AUTO) 0.1 X10'3 (0-0.2); BASOPHILS % (AUTO) 0.5 % (0-1); EOSINOPHILS # (AUTO) 1.1 X10'3 (0-0.9); HEMATOCRIT 34.1 % (42.0-52.0); HEMOGLOBIN 10.8 g/dl (14.0-17.9); LYMPHOCYTES # (AUTO) 3.6 X10'3 (1.1-4.8); LYMPHOCYTES % (AUTO) 21.8 % (21-51); MEAN CORPUSCULAR HEMOGLOBIN 28.7 PG (27.0-31.0); MEAN CORPUSCULAR HGB CONC 31.8 g/dL (33.0-36.5); MEAN CORPUSCULAR VOLUME 90.3 FL (78-98); MEAN PLATELET VOLUME 8.1 FL (7.4-10.4); MONOCYTES # (AUTO) 1.3 X10'3 (0-0.9); MONOCYTES % (AUTO) 7.6 % (2-12); NEUTROPHILS # (AUTO) 10.4 X10'3 (1.8-7.7); NEUTROPHILS % (AUTO) 63.1 % (42-75); PLATELET COUNT 538 X10'3 (140-440); RED BLOOD COUNT 3.78 X10'6 (4.70-6.10); RED CELL DISTRIBUTION WIDTH 15.6 % (11.5-14.5); WHITE BLOOD COUNT 16.5 X10'3 (4.5-11.0)
[2024-09-25 10:35] LABS: TOTAL CELLS COUNTED 100
[2024-09-25 10:37] LABS: PLATELET ESTIMATE INCREASED
[2024-09-25] MEDS: vancomycin 125 MG/5 ML UD oral SOLN.RECON 5mL oral syringe (FIRVANQ) PO SCH (13:38)
[2024-09-25] MEDS ORDERED: iohexol 300mg/ml 100ml inj. ONE (14:59)
[2024-09-25] MEDS: normal saline 500ml IV soln 500 ML IV ONE (16:22)
[2024-09-25 18:30] VITALS: BP 108/73; PULSE 95; RESP 15; TEMP 98.3; O2SAT 94
[2024-09-25 22:00] VITALS: BP 118/81; PULSE 98; RESP 16; TEMP 99.3; O2SAT 92
[2024-09-26] VITALS (7 sets, daily range): BP systolic 96–131; BP diastolic 57–88; PULSE 88–106; RESP 16–22; TEMP 96.8–98.6; O2SAT 90–94
[2024-09-26 06:34] LABS: BASOPHILS # (AUTO) 0.1 X10'3 (0-0.2); BASOPHILS % (AUTO) 0.8 % (0-1); EOSINOPHILS # (AUTO) 1.2 X10'3 (0-0.9); EOSINOPHILS % (AUTO) 9.1 % (0-6); HEMATOCRIT 32.8 % (42.0-52.0); HEMOGLOBIN 10.7 g/dl (14.0-17.9); LYMPHOCYTES # (AUTO) 3.5 X10'3 (1.1-4.8); LYMPHOCYTES % (AUTO) 25.9 % (21-51); MEAN CORPUSCULAR HEMOGLOBIN 29.4 PG (27.0-31.0); MEAN CORPUSCULAR HGB CONC 32.8 g/dL (33.0-36.5); MEAN CORPUSCULAR VOLUME 89.8 FL (78-98); MONOCYTES % (AUTO) 7.5 % (2-12); NEUTROPHILS # (AUTO) 7.7 X10'3 (1.8-7.7); NEUTROPHILS % (AUTO) 56.7 % (42-75); PLATELET COUNT 469 X10'3 (140-440); RED BLOOD COUNT 3.65 X10'6 (4.70-6.10); RED CELL DISTRIBUTION WIDTH 15.4 % (11.5-14.5); WHITE BLOOD COUNT 13.5 X10'3 (4.5-11.0)
[2024-09-26 06:38] LABS: ALANINE AMINOTRANSFERASE 23 U/L (12-78); ALBUMIN 2.9 G/DL (3.4-5.0); ALBUMIN/GLOBULIN RATIO 0.6 (1.1-1.5); ALKALINE PHOSPHATASE 69 IU/L (46-116); ANION GAP 8 (8-16); ASPARTATE AMINO TRANSFERASE 13 U/L (10-37); BILIRUBIN,TOTAL 0.3 MG/DL (0.1-1.0); BLOOD UREA NITROGEN 5 MG/DL (7-18); BUN/CREATININE RATIO 11.4 (10.0-20.0); CALCIUM 9.4 MG/DL (8.5-10.1); CHLORIDE 101 MMOL/L (99-107); CREATININE 0.44 MG/DL (0.60-1.10); GLUCOSE 107 MG/DL (70-104); MAGNESIUM 1.5 MG/DL (1.5-2.4); PHOSPHORUS 5.4 MG/DL (2.3-4.5); POTASSIUM 3.7 MMOL/L (3.5-5.1); SODIUM 138 MMOL/L (135-145); TOTAL CARBON DIOXIDE 28.9 MMOL/L (24-32); TOTAL PROTEIN 7.5 G/DL (6.4-8.2); eCRCL 229 ML/MIN; eGFR > 90 ML/MIN
[2024-09-27 05:57] LABS: BASOPHILS # (AUTO) 0.1 X10'3 (0-0.2); BASOPHILS % (AUTO) 0.9 % (0-1); EOSINOPHILS # (AUTO) 1.3 X10'3 (0-0.9); HEMATOCRIT 33.8 % (42.0-52.0); HEMOGLOBIN 10.8 g/dl (14.0-17.9); LYMPHOCYTES # (AUTO) 3.1 X10'3 (1.1-4.8); LYMPHOCYTES % (AUTO) 22.3 % (21-51); MEAN CORPUSCULAR HEMOGLOBIN 28.4 PG (27.0-31.0); MEAN CORPUSCULAR HGB CONC 31.9 g/dL (33.0-36.5); MEAN CORPUSCULAR VOLUME 89.3 FL (78-98); MEAN PLATELET VOLUME 7.4 FL (7.4-10.4); MONOCYTES # (AUTO) 1.1 X10'3 (0-0.9); MONOCYTES % (AUTO) 7.7 % (2-12); NEUTROPHILS # (AUTO) 8.4 X10'3 (1.8-7.7); NEUTROPHILS % (AUTO) 60.1 % (42-75); PLATELET COUNT 488 X10'3 (140-440); RED BLOOD COUNT 3.79 X10'6 (4.70-6.10); RED CELL DISTRIBUTION WIDTH 15.3 % (11.5-14.5)
[2024-09-27 06:00] VITALS: BP 99/64; PULSE 88; RESP 16; TEMP 98.4; O2SAT 92
[2024-09-27 06:14] LABS: ALANINE AMINOTRANSFERASE 26 U/L (12-78); ALBUMIN 2.9 G/DL (3.4-5.0); ALBUMIN/GLOBULIN RATIO 0.7 (1.1-1.5); ALKALINE PHOSPHATASE 67 IU/L (46-116); ANION GAP 8 (8-16); ASPARTATE AMINO TRANSFERASE 13 U/L (10-37); BILIRUBIN,TOTAL 0.3 MG/DL (0.1-1.0); BLOOD UREA NITROGEN 6 MG/DL (7-18); CALCIUM 9.4 MG/DL (8.5-10.1); CHLORIDE 102 MMOL/L (99-107); GLUCOSE 106 MG/DL (70-104); MAGNESIUM 1.6 MG/DL (1.5-2.4); PHOSPHORUS 5.7 MG/DL (2.3-4.5); SODIUM 139 MMOL/L (135-145); TOTAL PROTEIN 6.8 G/DL (6.4-8.2); eCRCL 252 ML/MIN; eGFR > 90 ML/MIN
[2024-09-27 10:00] VITALS: BP 117/78; PULSE 112; RESP 18; TEMP 98.3; O2SAT 93
[2024-09-27 18:00] VITALS: BP 113/72; PULSE 94; RESP 16; TEMP 97.8; O2SAT 99
[2024-09-27 22:00] VITALS: BP 111/63; PULSE 96; RESP 16; TEMP 99; O2SAT 90
[2024-09-27 22:24] VITALS: RESP 14; O2SAT 93
[2024-09-28 06:10] LABS: ALANINE AMINOTRANSFERASE 26 U/L (12-78); ALBUMIN 2.9 G/DL (3.4-5.0); ALBUMIN/GLOBULIN RATIO 0.7 (1.1-1.5); ALKALINE PHOSPHATASE 67 IU/L (46-116); ANION GAP 8 (8-16); ASPARTATE AMINO TRANSFERASE 11 U/L (10-37); BILIRUBIN,TOTAL 0.3 MG/DL (0.1-1.0); BLOOD UREA NITROGEN 5 MG/DL (7-18); BUN/CREATININE RATIO 10.4 (10.0-20.0); CALCIUM 9.5 MG/DL (8.5-10.1); CHLORIDE 101 MMOL/L (99-107); CREATININE 0.48 MG/DL (0.60-1.10); GLUCOSE 105 MG/DL (70-104); MAGNESIUM 1.5 MG/DL (1.5-2.4); PHOSPHORUS 5.7 MG/DL (2.3-4.5); POTASSIUM 3.9 MMOL/L (3.5-5.1); SODIUM 137 MMOL/L (135-145); TOTAL CARBON DIOXIDE 27.9 MMOL/L (24-32); TOTAL PROTEIN 6.9 G/DL (6.4-8.2); eCRCL 210 ML/MIN; eGFR > 90 ML/MIN
[2024-09-28 06:21] LABS: BASOPHILS # (AUTO) 0.1 X10'3 (0-0.2); BASOPHILS % (AUTO) 0.7 % (0-1); EOSINOPHILS # (AUTO) 1.3 X10'3 (0-0.9); EOSINOPHILS % (AUTO) 9.6 % (0-6); HEMATOCRIT 34.4 % (42.0-52.0); LYMPHOCYTES # (AUTO) 3.4 X10'3 (1.1-4.8); MEAN CORPUSCULAR HEMOGLOBIN 28.7 PG (27.0-31.0); MEAN CORPUSCULAR HGB CONC 31.9 g/dL (33.0-36.5); MEAN PLATELET VOLUME 7.7 FL (7.4-10.4); MONOCYTES # (AUTO) 1.2 X10'3 (0-0.9); MONOCYTES % (AUTO) 8.8 % (2-12); NEUTROPHILS # (AUTO) 7.2 X10'3 (1.8-7.7); NEUTROPHILS % (AUTO) 54.9 % (42-75); PLATELET COUNT 470 X10'3 (140-440); RED BLOOD COUNT 3.82 X10'6 (4.70-6.10); RED CELL DISTRIBUTION WIDTH 14.9 % (11.5-14.5); WHITE BLOOD COUNT 13.1 X10'3 (4.5-11.0)
[2024-09-28 07:09] VITALS: BP 121/81; PULSE 88; RESP 16; TEMP 98.7; O2SAT 91
[2024-09-28 08:00] VITALS: RESP 18
[2024-09-28 10:00] VITALS: BP 119/85; PULSE 101; RESP 14; TEMP 98.6; O2SAT 94
[2024-09-28] MEDS ORDERED: VANC25SO PO (13:41)
[2024-09-28] MEDS ORDERED: MULT-25 PO (13:41)
[2024-09-28] MEDS ORDERED: METO50TA16 PO (13:41)
[2024-09-28] MEDS ORDERED: LACT1CAP26 PO (13:41)
[2024-09-28] MEDS ORDERED: THIA100T70 PO (13:41)
== END 2024-09-28 18:20 | disposition home or self-care (01) | DRG 720 ==
LOC: ER 08:54 → ED HOLD 12:58 → EDBEDREQ 08-16 00:16 → CICU 2S 08-16 14:55 → ORTHO 4S 09-17 15:11
PROVIDERS: ADMIT Family Medicine; ATTEND Family Medicine
PROC: 5A0935A Assistance with Respiratory Ventilation, Less than 24 Consecutive Hours, High Flow/Velocity Cannula (ICD-10-PCS; 2024-08-16)
PROC: 5A09357 Assistance with Respiratory Ventilation, Less than 24 Consecutive Hours, Continuous Positive Airway Pressure (ICD-10-PCS; 2024-08-17)
PROC: 5A0945A Assistance with Respiratory Ventilation, 24-96 Consecutive Hours, High Flow/Velocity Cannula (ICD-10-PCS; 2024-08-17)
PROC: 5A0935A Assistance with Respiratory Ventilation, Less than 24 Consecutive Hours, High Flow/Velocity Cannula (ICD-10-PCS; 2024-08-20)
PROC: 5A09357 Assistance with Respiratory Ventilation, Less than 24 Consecutive Hours, Continuous Positive Airway Pressure (ICD-10-PCS; 2024-08-20)
PROC: 0D9670Z Drainage of Stomach with Drainage Device, Via Natural or Artificial Opening (ICD-10-PCS; principal; 2024-08-21)
PROC: 5A0945A Assistance with Respiratory Ventilation, 24-96 Consecutive Hours, High Flow/Velocity Cannula (ICD-10-PCS; 2024-08-21)
PROC: 05HC33Z Insertion of Infusion Device into Left Basilic Vein, Percutaneous Approach (ICD-10-PCS; 2024-08-21)
PROC: 5A0935A Assistance with Respiratory Ventilation, Less than 24 Consecutive Hours, High Flow/Velocity Cannula (ICD-10-PCS; 2024-08-23)
PROC: 5A09357 Assistance with Respiratory Ventilation, Less than 24 Consecutive Hours, Continuous Positive Airway Pressure (ICD-10-PCS; 2024-08-23)
PROC: 5A09357 Assistance with Respiratory Ventilation, Less than 24 Consecutive Hours, Continuous Positive Airway Pressure (ICD-10-PCS; 2024-08-25)
PROC: 5A0945A Assistance with Respiratory Ventilation, 24-96 Consecutive Hours, High Flow/Velocity Cannula (ICD-10-PCS; 2024-08-25)
PROC: 02HV33Z Insertion of Infusion Device into Superior Vena Cava, Percutaneous Approach (ICD-10-PCS; 2024-08-27)
PROC: B548ZZA Ultrasonography of Superior Vena Cava, Guidance (ICD-10-PCS; 2024-08-27)
PROC: BW251ZZ Computerized Tomography (CT Scan) of Chest, Abdomen and Pelvis using Low Osmolar Contrast (ICD-10-PCS; 2024-09-03)
PROC: 0F9G30Z Drainage of Pancreas with Drainage Device, Percutaneous Approach (ICD-10-PCS; 2024-09-12)
PROC: 5A0935A Assistance with Respiratory Ventilation, Less than 24 Consecutive Hours, High Flow/Velocity Cannula (ICD-10-PCS; 2024-09-15)
PROC: 5A1955Z Respiratory Ventilation, Greater than 96 Consecutive Hours (ICD-10-PCS; 2024-09-16)
PROC: 0BH17EZ Insertion of Endotracheal Airway into Trachea, Via Natural or Artificial Opening (ICD-10-PCS; 2024-09-16)
PROC: 5A0945A Assistance with Respiratory Ventilation, 24-96 Consecutive Hours, High Flow/Velocity Cannula (ICD-10-PCS; 2024-09-16)
PROC: B32T1ZZ Computerized Tomography (CT Scan) of Left Pulmonary Artery using Low Osmolar Contrast (ICD-10-PCS; 2024-09-18)
PROC: B3201ZZ Computerized Tomography (CT Scan) of Thoracic Aorta using Low Osmolar Contrast (ICD-10-PCS; 2024-09-18)
PROC: B32S1ZZ Computerized Tomography (CT Scan) of Right Pulmonary Artery using Low Osmolar Contrast (ICD-10-PCS; 2024-09-18)
PROC: 5A0935A Assistance with Respiratory Ventilation, Less than 24 Consecutive Hours, High Flow/Velocity Cannula (ICD-10-PCS; 2024-09-23)
PROC: 5A09357 Assistance with Respiratory Ventilation, Less than 24 Consecutive Hours, Continuous Positive Airway Pressure (ICD-10-PCS; 2024-09-23)
PROC: BW211ZZ Computerized Tomography (CT Scan) of Abdomen and Pelvis using Low Osmolar Contrast (ICD-10-PCS; 2024-09-25)
DX: A41.9 Sepsis, unspecified organism (principal); J80 Acute respiratory distress syndrome; N17.0 Acute kidney failure with tubular necrosis; R65.21 Severe sepsis with septic shock; J18.9 Pneumonia, unspecified organism; K85.20 Alcohol induced acute pancreatitis without necrosis or infection; A04.72 Enterocolitis due to Clostridium difficile, not specified as recurrent; E87.0 Hyperosmolality and hypernatremia; E87.20 Acidosis, unspecified; E83.39 Other disorders of phosphorus metabolism; K56.7 Ileus, unspecified; E83.51 Hypocalcemia; E86.0 Dehydration; E83.42 Hypomagnesemia; F17.290 Nicotine dependence, other tobacco product, uncomplicated; D75.839 Thrombocytosis, unspecified; I10 Essential (primary) hypertension; D75.1 Secondary polycythemia; K76.0 Fatty (change of) liver, not elsewhere classified; F10.10 Alcohol abuse, uncomplicated; R18.8 Other ascites; E87.6 Hypokalemia; R74.01 Elevation of levels of liver transaminase levels; D89.2 Hypergammaglobulinemia, unspecified; E78.1 Pure hyperglyceridemia
CPT/HCPCS: 36410; 36415; 36569; 36600; 49406; 70450; 71045; 71260; 71275; 74018; 74176; 74177; 76700; 76770; 76937; 76942; 80048; 80053; 80061; 80069; 80305; 80320; 80329; 81001; 82140; 82150; 82310; 82330; 82570; 82803; 82945; 82948; 83036; 83605; 83615; 83690; 83735; 83880; 84100; 84132; 84133; 84134; 84145; 84156; 84157; 84300; 84478; 84484; 84540; 85007; 85018; 85025; 85379; 85610; 85730; 86140; 86235; 86592; 86706; 86803; 87040; 87070; 87077; 87081; 87088; 87186; 87324; 87340; 87449; 87522; 87535; 87538; 92508; 92616; 93005; 93306; 93970; 94002; 94003; 94660; 94664; 94668; 94760; 94799; 97110; 97116; 97161; 97162; 97530; 97535; 99291; 99292; A4314; A4333; A4615; A4628; A5200; A6212; A6213; A6222; A6223; A6250; A6258; A6446; A6449; A6590; A7015; A9900; C1751; C1758; G0378; J0131; J0610; J0696; J0744; J1120; J1171; J1630; J1650; J1815; J1940; J2060; J2185; J2212; J2250; J2270; J2405; J2470; J2543; J2704; J2765; J3010; J3370; J3411; J3475; J3480; J3490; J7030; J7040; J7050; J7060; J7070; J7120; Q9967